=== PATIENT | female | born 1965 | race Caucasian/White ===

== ENCOUNTER 2022-05-15 13:50 | Emergency (ER) | payer BC, SELFPAY ==
--- NOTE | 2022-05-15 13:56 | ED.URI ---
HPI - URI/Sore Throat General Chief Complaint: Upper Respiratory Infection Stated Complaint: FEVER Time Seen by Provider: 05/15/22 13:56 Source: patient Mode of arrival: ambulatory Limitations: no limitations History of Present Illness HPI Narrative: [age] year complaint headache, sore throat, body aches, fever for 2 days. Reports that she did a home COVID test that was negative. 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 Denies nausea vomiting diarrhea. All systems reviewed and negative except as noted above. Related Data Home Medications Medication Instructions Recorded Confirmed cevimeline 30 mg capsule 1 cap PO TID 08/22/20 05/15/22 ferrous sulfate 325 mg (65 mg 325 mg PO DAILY 08/22/20 05/15/22 iron) tablet (Feosol) fexofenadine 180 mg tablet 180 mg PO DAILY 08/22/20 05/15/22 (Sveta Allergy) fluoxetine 40 mg capsule (Prozac) 40 mg PO DAILY 08/22/20 05/15/22 folic acid 1 mg tablet 1 mg PO DAILY 08/22/20 05/15/22 hydroxychloroquine 200 mg tablet 200 mg PO BID 08/22/20 05/15/22 loteprednol etabonate 0.2 % eye 1 drp EACH EYE QID 08/22/20 05/15/22 drops,suspension (Alrex) methotrexate sodium 2.5 mg tablet 10 mg PO WEEKLY 08/22/20 05/15/22 trazodone 50 mg tablet 50 mg PO QHS PRN Insomnia 08/22/20 05/15/22 Allergies Allergy/AdvReac Type Severity Reaction Status Date / Time latex Allergy Intermediate ITCHING Verified 05/15/22 13:56 meperidine Allergy Unknown Unknown Verified 05/15/22 13:56 Review of Systems Review of Systems: CONSTITUTIONAL: Reports fever, chills, or sweats. EYES: Denies visual changes, redness, or discharge. ENT: Denies rhinorrhea, congestion. Denies sore throat. Reports otalgia. CARDIOVASCULAR: Denies chest pain, palpitations, or edema. RESPIRATORY: Denies cough or dyspnea. GASTROINTESTINAL: Denies abdominal pain, nausea, vomiting, or diarrhea. GENITOURINARY: Denies dysuria or hematuria. SKIN: Denies rash or itching. MUSCULOSKELETAL: Denies back pain, joint pain. Reports myalgia. NEUROLOGIC: Denies headache, numbness, or weakness. PSYCHIATRIC: Denies anxiety or depression. All other systems reviewed are negative, except as documented in HPI. [facility] Past Medical History Medical History (Updated 05/15/22 @ 14:24 by Radha Reid NP) Anxiety Chronic insomnia Depression IBS (irritable bowel syndrome) Migraines Prolonged QT interval Seasonal allergic rhinitis Sjogrens syndrome Family History Family History Grandparent Hypertension Malignant neoplasm of prostate Family history of coronary artery disease Family history of malignant neoplasm of urinary bladder Family history of malignant neoplasm of kidney Father Family history of elevated blood lipids Heart disease Malignant neoplasm of prostate Social History Social History Smoking status: Never smoker Second hand tobacco smoke exposure: No Alcohol intake: current Alcohol use details: 1-2/mo Substance use: never Substance use type: does not use Living arrangements: with family Occupation/Education: unemployed Gender identity (if verbalized by the patient): Female Sexual Orientation (if Verbalized by the Patient): Straight or Heterosexual Comments At time of signature, agree with nursing past medical, surgical, social and family history. There is no relevant family history pertinent to the presenting complaint. Exam Narrative: GENERAL: This is a well-nourished, well-developed patient, in no apparent distress. HEAD: normocephalic, atraumatic. EYES: PERRL. Sclera clear/white. Vision is grossly intact. EARS: External ears normal, auditory canals clear and without drainage, TMs normal without perforation. Hearing grossly intact. NOSE: External nose normal with no obvious nasal discharge, na
[2022-05-15 14:05] VITALS: BP 115/82; PULSE 81; RESP 16; TEMP 36.3; O2SAT 100
== END 2022-05-15 14:26 | disposition home or self-care (01) ==
PROVIDERS: Emergency Provider Nurse Practitioner Family
DX: J02.9 Acute pharyngitis, unspecified (principal); F41.9 Anxiety disorder, unspecified; F32.A Depression, unspecified; M35.00 Sjogren syndrome, unspecified
CPT/HCPCS: 87081; 87880; 99213; G0463

== ENCOUNTER 2023-04-22 14:19 | Emergency (ER) | payer BC, SELFPAY ==
[2023-04-22 14:28] VITALS: BP 94/77; PULSE 79; RESP 16; TEMP 36.6; O2SAT 99
--- NOTE | 2023-04-22 15:02 | ED.URI ---
HPI - URI/Sore Throat General Chief Complaint: Upper Respiratory Infection Stated Complaint: Strep Test Time Seen by Provider: 04/22/23 15:02 Source: patient Mode of arrival: ambulatory Limitations: no limitations History of Present Illness HPI Narrative: 57 year old female presents to [facility] care with complaints of sore throat since yesterday. Patient reports that she has had cold symptoms since last week which includes headache, sinus congestion with drainage, slight cough, no fevers noted. patient reports that she has had knwon exposure to strep and COVID last week has done home COVID tests which have been negative. Patient reports that she has Sjogren and takes hydroxychloroquine and methotrexate for management of disease process. MD elicited complaint: sore throat, rhinorrhea, nasal congestion and other (headache) Pertinent past history: seasonal allergies and immunosuppression Pain scale (0-10): 4 Description of mucous: clear Able to tolerate fluids by mouth: Yes Exacerbating factors: swallowing Treatments prior to arrival: ibuprofen and other (alergy medication) Related Data Home Medications Medication Instructions Recorded Confirmed cevimeline 30 mg capsule 1 cap PO TID 08/22/20 04/22/23 fexofenadine 180 mg tablet 180 mg PO DAILY 08/22/20 04/22/23 (Sveta Allergy) fluoxetine 40 mg capsule (Prozac) 40 mg PO DAILY 08/22/20 04/22/23 folic acid 1 mg tablet 1 mg PO DAILY 08/22/20 04/22/23 hydroxychloroquine 200 mg tablet 200 mg PO BID 08/22/20 04/22/23 loteprednol etabonate 0.2 % eye 1 drp EACH EYE QID 08/22/20 04/22/23 drops,suspension (Alrex) methotrexate sodium 2.5 mg tablet 10 mg PO WEEKLY 08/22/20 04/22/23 trazodone 50 mg tablet 50 mg PO QHS PRN Insomnia 08/22/20 04/22/23 Allergies Allergy/AdvReac Type Severity Reaction Status Date / Time latex Allergy Intermediate ITCHING Verified 04/22/23 14:34 meperidine Allergy Unknown Unknown Verified 04/22/23 14:34 Review of Systems Review of Systems: CONSTITUTIONAL: Denies malaise, chills, sweats, or fever. EYES: Denies visual changes, redness, or discharge. ENT: Reports rhinorrhea, congestion, sinus pain,no otalgia and positive for sore throat. CARDIOVASCULAR: Denies chest pain, palpitations, or edema. RESPIRATORY: Reports cough.? Denies dyspnea. GASTROINTESTINAL: Denies abdominal pain, nausea, vomiting, diarrhea SKIN: Denies rash or itching. MUSCULOSKELETAL: Denies myalgia. NEUROLOGIC: Reports headache. All systems reviewed & are unremarkable except as noted in HPI and below PMFSH Past Medical History Medical History Anxiety Chronic insomnia Depression IBS (irritable bowel syndrome) Migraines Prolonged QT interval Seasonal allergic rhinitis Sjogrens syndrome Family History Family History Grandparent Hypertension Malignant neoplasm of prostate Family history of coronary artery disease Family history of malignant neoplasm of urinary bladder Family history of malignant neoplasm of kidney Father Family history of elevated blood lipids Heart disease Malignant neoplasm of prostate Social History Social History Smoking status: Never smoker Second hand tobacco smoke exposure: No Alcohol intake: current Alcohol use details: 1-2/mo Substance use: never Substance use type: does not use Living arrangements: with family Occupation/Education: unemployed Gender identity (if verbalized by the patient): Female Sexual Orientation (if Verbalized by the Patient): Straight or Heterosexual Comments At time of signature, agree with nursing past medical, surgical, social and family history. There is no relevant family history pertinent to the presenting complaint Exam Narrative: GENERAL: Well-appearing, well-nourished, and in no acute distress. HEAD: Nor
== END 2023-04-22 15:20 | disposition home or self-care (01) ==
PROVIDERS: Emergency Provider Registered Nurse; PCP Family Medicine
DX: J06.9 Acute upper respiratory infection, unspecified (principal); Z20.822 Contact with and (suspected) exposure to COVID-19; F41.9 Anxiety disorder, unspecified; F32.A Depression, unspecified
CPT/HCPCS: 87081; 87426; 87804; 87880; 99213; G0463

== ENCOUNTER 2024-09-14 19:20 | Inpatient (IN) | payer BC, SELFPAY ==
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
--- OUTSIDE RECORDS SUMMARY | 2024-09-14 19:22 | XMS_ITS | Data Portability ---
Author Organization [facility] [place] Address [address] [place] [address] [place] [address] Care Team Providers Care Banking Supervisor Name Role Phone JOAQUINA CHONG Primary Care Provider Assessment Encounter Date Assessment Date Assessment LastModified by Organization Details LastModified Time 07/13/2020 07/13/2020 Annual gynecological exam performed. Patient will come back in a year unless there are new symptoms. Not available 07/13/2020 12:37:39 07/17/2021 07/17/2021 Annual gynecological exam performed. Patient will come back in a year unless there are new symptoms. [email or web address] Not available 07/17/2021 11:08:36 07/19/2022 07/19/2022 Annual gynecological exam performed. Patient will come back in a year unless there are new symptoms. Not available 07/19/2022 10:49:43 07/23/2023 07/23/2023 Annual gynecological exam performed. Patient will come back in a year unless there are new symptoms. [email or web address] Not available 07/23/2023 10:55:04 09/08/2024 09/08/2024 Annual gynecological exam performed. Patient will come back in a year unless there are new symptoms. [email or web address] Not available 09/08/2024 09:26:12 Plan of Treatment Reminders Order Date Submit Date Provider Last Modified By Organization Details Last Modified Time Details Appointments None recorded. Lab CMP, serum or plasma 2024 025 [email or web address] [facility], [address], [place], [address], 5 10:10:19 CBC w/ auto diff 2024 025 [email or web address] [facility], [address], [place], [address], 5 10:10:19 lipid panel, serum 2024 025 [facility], [address], [place], [address], 5 10:10:19 TSH, ultra-sens itive, serum 2024 025 [email or web address] [facility], [address], [place], [address], 5 10:10:19 HbA1c (hemoglobi n A1c), blood 2024 025 [email or web address] [facility], [address], [place], [address], 5 06:39:33 pap, IG + HR HPV - HPV regardless but if HPV is positive need subtyping 16,18/45 2024 025 [facility] (Lab), [address], [place], [address], 5 11:06:08 lipid panel, blood 2021 022 [facility] (Lab), [address], [place], [address], 2 03:42:51 CMP, serum or plasma 2021 022 [facility] (Lab), [address] [place], [address], 2 03:42:51 CBC w/ auto diff 2021 022 [facility] (Lab), [address] [facility], [place], [address], 03:42:50 vitamin D, 25-hydroxy , total, serum 2021 [facility] (Lab), [address] [facility], [place], [address], 03:42:52 HbA1c (hemoglobi n A1c), blood 2021 022 [facility] (Lab), [address] [facility], [place], [address], 03:42:53 TSH, serum or plasma 2021 [facility] (Lab), [address] [facility], [place], [address], 2 03:42:51 lh + FSH, serum 2021 022 [facility] (Lab), [address], [place], [address], 03:42:52 estradiol, serum 2021 [facility] (Lab), [address] [facility], [place], [address], 2 03:42:52 prolactin, serum 2021 [facility] (Lab), [address] [facility], [place], [address], 2 03:42:53 Referral primary care provider referral 2020 [email or web address] Not available 17:19:06 Procedures None recorded. Surgeries None recorded. Imaging MAMMO, screening, bilateral 2022 023 [facility], [address] [place] [address], [address], 3 05:01:14 Medication Orders fluoxetine 20 mg capsule 2024 025 [facility] [id number] [facility], [address] [place], [address], 5 11:46:25 fluoxetine 20 mg capsule 2023 024 [facility] [address] [facility], [address] [place], [address], 4 11:20:43 fluoxetine 20 mg capsule 2022 023 [facility] [address] [facility], [address] [place], [address], 3 11:10:16 Prozac 20 mg capsule 2020 021 [facility] [address] [facility], [address] [place], [address], 1 14:19:42 Patient TargetsNo targets recorded. Patient InstructionsNo instructions recorded. 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 Order ing Locat ion: [place] Patho logy Recei linda: 07/14 0905 First Scree n: Beech im, Shahana , CT Speci men: Scree jaqueline Pap - Image d, Cervi x STATE MENT OF ADEQU ACY: Satis facto ry for evalu ation Trans forma tion zone compo nent prese nt FINAL DIAGN OSIS: Negat matthew for Squ[place] ous Intra epith elial Lesio n Elect carl weinberg luis d by Shahana Thurman CT on 021 at 2:59 PM ----- ----- ----- ----- ----- ----- ----- ----- ----- ----- ----- ----- ----- ----- ----- ----- ----- ---- HPV RESUL TS: HPV mRNA E6/E7 : No HPV mRNA Detec francisca NOTE: This high risk HPV mRNA assay detec ts fourt een high- risk HPV types (16, 18, 31, 33, 35, 39, 45, 51, 52, 56, 58, 59, 66, 68) witho ut diffe renti ation . CHART ABLE COMME NT: Note: This speci men was revie wed by a Cytot echno logis t and/o r Patho logis t (as indic ated in this repor t) after evalu ation using the Thinp rep Imagi ng Syste m. CLINI BETSY INFOR MATIO N: Menst rual Statu s: LMP (if appli cable ): Clini betsy Histo ry/Pr eviou s Pap: Type of Neopl denyns (if appli cable ): Other Histo ry: Hormo vern (if appli cable ): PAP EDUCA FRANK L NOTE: The Pap Test is a scree jaqueline test with an inher ent false negat matthew rate. Liqui d-bas e sampl ing may decre ase, but will not elimi mary grace, false negat matthew resul ts. A negat matthew resul t does not precl ude the prese nce and/o r devel opmen t of disea se, since the prese nce of abnor mal cells in the sampl e depen ds on the locat ion of the lesio n and sampl ing techn ique. Teresita nued regul ar scree jaqueline is the best metho d of cance r preve ntion . If repor francisca cytol ogic findi ng do not corre late with physi betsy and/o r histo rical findi ngs, furth er inves tigat ion is recom agata d, as clini julio c mosher nted. Not Available [facility] (Lab) [address], [place], [address], 07/15/2020 15:37:28 07/18/19 22 07/17/2021 CBC W/DIF F WBC 3.5 10'3/ uL 3.6-10 .2 low Not Available [facility] (Lab) [address] [facility], [place], [address], 07/18/2021 03:42:50 07/18/19 22 07/17/2021 CBC W/DIF F RBC 4.40 10'6/ uL (based on docume nted legal sex) 4.10-5 .30 Not Available [facility] (Lab) [address] [facility], [place], [address], 07/18/2021 03:42:50 07/18/19 22 07/17/2021 CBC W/DIF F HGB 13.1 g/dL (based on docume nted legal sex) 11.9-1 5.8 Not Available [facility] (Lab) [address] [facility], [place], [address], 07/18/2021 03:42:50 07/18/19 22 07/17/2021 CBC W/DIF F HCT 42.1 % (based on docume nted legal sex) 37.4-4 8.3 Not Available [facility] (Lab) [address] [facility], [place], [address], 07/18/2021 03:42:50 07/18/19 22 07/17/2021 CBC W/DIF F MCV 97.0 fL 82.0-9 9.0 Not Available [facility] (Lab) [address] [facility], [place], [address], 07/18/2021 03:42:50 07/18/19 22 07/17/2021 CBC W/DIF F MCH 30.0 pg 27.0-3 3.0 Not Available [facility] (Lab) [address] [facility], [place], [address], 07/18/2021 03:42:50 07/18/19 22 07/17/2021 CBC W/DIF F MCHC 31.0 g/dL 32.0-3 6.0 low Not Available [facility] (Lab) [address] [facility], [place], [address], 07/18/2021 03:42:50 07/18/19 22 07/17/2021 CBC W/DIF F RDW 15.0 % 11.0-1 5.0 Not Available [facility] (Lab) [address] [facility], [place], [address], 07/18/2021 03:42:50 07/18/19 22 07/17/2021 CBC W/DIF F plt 216 10'3/ uL 150-45 0 Not Available [facility] (Lab) [address] [facility], [place], [address], 07/18/2021 03:42:50 07/18/19 22 07/17/2021 CBC W/DIF F MPV 10.3 fL 9.8-12 .7 Not Available [facility] (Lab) [address] [facility], [place], [address], 07/18/2021 03:42:50 07/18/19 22 07/17/2021 CBC W/DIF F NRBC's 0.00 % 0 Not Available [facility] (Lab) [address] [facility], [place], [address], 07/18/2021 03:42:50 07/18/19 22 07/17/2021 CBC W/DIF F absolute NRBCs 0.0 10'3/ uL 0 Not Available [facility] (Lab) [address] [place], [address], 07/18/2021 03:42:50 07/18/19 22 07/17/2021 CBC W/DIF F neutrophils 53.0 % 37.0-7 2.0 Not Available [facility] (Lab) [address], [place], [address], 07/18/2021 03:42:50 07/18/19 22 07/17/2021 CBC W/DIF F lymphocytes 24.0 % 16.0-4 8.0 Not Available [facility] (Lab) [address], [place], [address], 07/18/2021 03:42:50 07/18/19 22 07/17/2021 CBC W/DIF F monocytes 18.0 % 4.0-14 .0 high Not Available [facility] (Lab) [address], [place], [address], 07/18/2021 03:42:50 07/18/19 22 07/17/2021 CBC W/DIF F eosinophils 3.0 % 0.0-9. 0 Not Available [facility] (Lab) [address], [place], [address], 07/18/2021 03:42:50 07/18/19 22 07/17/2021 CBC W/DIF F basophils 1.0 % 0.0-2. 0 Not Available [facility] (Lab) [address], [place], [address], 07/18/2021 03:42:50 07/18/19 22 07/17/2021 CBC W/DIF F immature granulocytes 1.0 % no define d refere nce range Not Available [facility] (Lab) [address], [place], [address], 07/18/2021 03:42:50 07/18/19 22 07/17/2021 CBC W/DIF F absolute neutrophils 1.8 10'3/ uL 1.1-6. 0 Not Available [facility] (Lab) [address], [place], [address], 07/18/2021 03:42:50 07/18/19 22 07/17/2021 CBC W/DIF F absolute lymphocytes 0.8 10'3/ uL 0.7-3. 4 Not Available [facility] (Lab) [address] [facility], [place], [address], 07/18/2021 03:42:50 07/18/19 22 07/17/2021 CBC W/DIF F absolute monocytes 0.6 10'3/ uL 0.3-1. 0 Not Available [facility] (Lab) [address] [facility], [place], [address], 07/18/2021 03:42:50 07/18/19 22 07/17/2021 CBC W/DIF F absolute eosinophils 0.1 10'3/ uL 0.0-0. 6 Not Available [facility] (Lab) [address] [facility], [place], [address], 07/18/2021 03:42:50 07/18/19 22 07/17/2021 CBC W/DIF F absolute basophils 0.0 10'3/ uL 0.0-0. 1 Not Available [facility] (Lab) [address] [facility], [place], [address], 07/18/2021 03:42:50 07/18/19 22 07/17/2021 CBC W/DIF F absolute immature granulocytes 0.00 10'3/ uL 0.00-0 .10 2021 1:35 AM: P indic ates parti al resul ts on a panel have been relea sed. Addit ional resul ts will follo w. 2021 1:35 AM: This resul t has been final verif ied. No addit ional or kauffman ed resul ts are expec francisca. Not Available [facility] (Lab) [address] [facility], [place], [address], 07/18/2021 03:42:50 07/18/19 22 07/17/2021 LIPID PANEL ,AMA (LDL- CALC) total cholesterol 155 mg/dL 0-199 Not Available [facility] (Lab) [address] [facility], [place], [address], 07/18/2021 03:42:51 07/18/19 22 07/17/2021 LIPID PANEL ,AMA (LDL- CALC) triglyceride s 121 mg/dL 0.00-1 50.00 NCEP Refer ence Value s for Trigl yceri napoleon: Annelise l: <150 mg/dL Borde rline High: 150 - 199 mg/dL High: 200 - 499 mg/dL Very High: >/= 500 mg/dL Not Available [facility] (Lab) [address] [facility], [place], [address], 07/18/2021 03:42:51 07/18/19 22 07/17/2021 LIPID PANEL ,AMA (LDL- CALC) HDL cholesterol 54 mg/dL >40 Not Available [facility] (Lab) [address] [place], [address], 07/18/2021 03:42:51 07/18/19 22 07/17/2021 LIPID PANEL ,AMA (LDL- CALC) LDL cholesterol 77 mg/dL 0-99 Cutof f value s recom agata d by the Natio nal Aurea stero l Educa tion Progr am: BIANKA ABLE: Aurea stero l <200 mg/dL LDL <100 mg/dL BORDE RLINE : Aurea stero l 200-2 39 mg/dL LDL 101-1 59 mg/dL HIGHE R RISK: Aurea stero l >240 mg/dL LDL >160 mg/dL , HDL <40 mg/dL Not Available [facility] (Lab) [address] [place], [address], 07/18/2021 03:42:51 07/18/19 22 07/17/2021 LIPID PANEL ,AMA (LDL- CALC) non-HDL cholesterol 101 mg/dL no refere nce range A reaso nable goal for non-H DL aurea stero l is one that is 30 mg/dL highe r than the LDL aurea stero l goal. Not Available [facility] (Lab) [address] [facility], [place], [address], 07/18/2021 03:42:51 07/18/19 22 07/17/2021 LIPID PANEL ,AMA (LDL- CALC) chol/HDL ratio 2.9 . 0.0-5. 0 Not Available [facility] (Lab) [address] [facility], [place], [address], 07/18/2021 03:42:51 07/18/19 22 07/17/2021 CMP(C OMPRE HENSI VE METAB OLIC PANEL ) sodium 140 mmol/ L 133-14 6 Not Available [facility] (Lab) [address] [facility], [place], [address], 07/18/2021 03:42:51 07/18/19 22 07/17/2021 CMP(C OMPRE HENSI VE METAB OLIC PANEL ) potassium 3.8 mmol/ L 3.5-5. 1 Not Available [facility] (Lab) [address] [facility], [place], [address], 07/18/2021 03:42:51 07/18/19 22 07/17/2021 CMP(C OMPRE HENSI VE METAB OLIC PANEL ) chloride 106 mmol/ L 98-107 Not Available [facility] (Lab) [address] [facility], [place], [address], 07/18/2021 03:42:51 07/18/19 22 07/17/2021 CMP(C OMPRE HENSI VE METAB OLIC PANEL ) carbon dioxide 27 mmol/ L 21-31 Not Available [facility] (Lab) [address] [facility], [place], [address], 07/18/2021 03:42:51 07/18/19 22 07/17/2021 CMP(C OMPRE HENSI VE METAB OLIC PANEL ) anion gap 7 mmol/ L 4-13 Not Available [facility] (Lab) [address] [place], [address], 07/18/2021 03:42:51 07/18/19 22 07/17/2021 CMP(C OMPRE HENSI VE METAB OLIC PANEL ) blood urea nitrogen 16 mg/dL 7-25 Not Available [facility] (Lab) [address] [facility], [place], [address], 07/18/2021 03:42:51 07/18/19 22 07/17/2021 CMP(C OMPRE HENSI VE METAB OLIC PANEL ) creatinine 0.97 mg/dL 0.60-1 .30 Not Available [facility] (Lab) [address] [facility], [place], [address], 07/18/2021 03:42:51 07/18/19 22 07/17/2021 CMP(C OMPRE HENSI VE METAB OLIC PANEL ) egfrcr (CKD-epi 2020) 69 mL/mi n/1.7 3_m2 >=60 Not Available [facility] (Lab) [address] [facility], [place], [address], 07/18/2021 03:42:51 07/18/19 22 07/17/2021 CMP(C OMPRE HENSI VE METAB OLIC PANEL ) calcium 9.5 mg/dL 8.3-10 .5 Not Available [facility] (Lab) [address] [facility], [place], [address], 07/18/2021 03:42:51 07/18/19 22 07/17/2021 CMP(C OMPRE HENSI VE METAB OLIC PANEL ) glucose 76 mg/dL 70-100 Not Available [facility] (Lab) [address] [facility], [place], [address], 07/18/2021 03:42:51 07/18/19 22 07/17/2021 CMP(C OMPRE HENSI VE METAB OLIC PANEL ) protein, total 7.0 g/dL 6.4-8. 3 Not Available [facility] (Lab) [address] [facility], [place], [address], 07/18/2021 03:42:51 07/18/19 22 07/17/2021 CMP(C OMPRE HENSI VE METAB OLIC PANEL ) albumin 4.0 g/dL 3.5-5. 0 Not Available [facility] (Lab) [address] [facility], [place], [address], 07/18/2021 03:42:51 07/18/19 22 07/17/2021 CMP(C OMPRE HENSI VE METAB OLIC PANEL ) ALT 16 units /L 9-43 Not Available [facility] (Lab) [address] [facility], [place], [address], 07/18/2021 03:42:51 07/18/19 22 07/17/2021 CMP(C OMPRE HENSI VE METAB OLIC PANEL ) alkaline phosphatase 65 units /L 34-104 Not Available [facility] (Lab) [address] [facility], [place], [address], 07/18/2021 03:42:51 07/18/19 22 07/17/2021 CMP(C OMPRE HENSI VE METAB OLIC PANEL ) AST 22 units /L 13-39 Not Available [facility] (Lab) [address] [facility], [place], [address], 07/18/2021 03:42:51 07/18/19 22 07/17/2021 CMP(C OMPRE HENSI VE METAB OLIC PANEL ) bilirubin, total 0.5 mg/dL 0.2-1. 2 Not Available [facility] (Lab) [address] [facility], [place], [address], 07/18/2021 03:42:51 07/18/19 22 07/17/2021 TSH, REFLE X FREE T4 TSH 1.18 uIU/m L 0.30-5 .33 Not Available [facility] (Lab) [address] [place], [address], 07/18/2021 03:42:51 07/18/19 22 07/17/2021 VITAM IN D, 25-OH (TOTA L D2/D3 ) vitamin D, 25-hydroxy, total 31.0 NG/mL 30-80 NOTE: Defic iency : <20 ng/mL Insuf ficie ncy: 20-29 ng/mL Optim um Level : 30-80 ng/mL Possi ble Toxic ity: >80 ng/mL Most patie nts with toxic ity have level s >150 ng/mL . Not Available [facility] (Lab) [address] [facility], [place], [address], 07/18/2021 03:42:52 07/18/19 22 07/17/2021 ESTRA DIOL estradiol 57.7 pg/mL This assay was perfo rmed using [employer] ratio n reage nts and test kits. Value s obtai kailey with other assay metho ds or kits canno t be used inter [facility] . Femal e Estra diol Range s: Folli cular phase 12.4- 233 pg/mL Ovula tion phase 41.0- 398 pg/mL Lutea l phase 22.3- 341 pg/mL Postm enopa usal< 5-138 pg/mL Healt hy Pregn ant Women 1st Trime ster1 54-32 43 pg/mL 2nd Trime ster1 561-2 1280 pg/mL 3rd Trime ster8 525-> 46510 pg/mL Not Available [facility] (Lab) [address] [facility], [place], [address], 07/18/2021 03:42:52 07/18/19 22 07/17/2021 FSH / LH FSH 69.8 mIU/m L This assay was perfo rmed using [employer] reage nts and test kits. Value s obtai kailey with other assay metho ds or kits canno t be used inter [facility] . Femal es Folli cular : 3.5-1 2.5 mIU/m L Ovula tion: 4.7-2 1.5 mIU/m L Lutea l: 1.7-7 .7 mIU/m L Postm enopa use: 25.8- 134.8 mIU/m L Not Available [facility] (Lab) [address] [facility], [place], [address], 07/18/2021 03:42:52 07/18/19 22 07/17/2021 FSH / LH LH 46.6 mIU/m L This assay was perfo rmed using [employer] reage nts and test kits. Value s obtai kailey with other assay metho ds or kits canno t be used inter [facility] . Femal es Mid-F ollic ular: 2.4-1 2.6 mIU/m L Mid-C ycle: 14.0- 95.6 mIU/m L Mid-L uteal : 1.0-1 1.4 mIU/m L Postm enopa use: 7.7-5 8.5 mIU/m L Not Available [facility] (Lab) [address] [place], [address], 07/18/2021 03:42:52 07/18/19 22 07/17/2021 PROLA CTIN prolactin, total 13.90 NG/mL 4.79-2 3.30 This assay was perfo rmed using [employer] n reage nts and test kits. Value s obtai kailey with other assay metho ds or kits canno t be used inter [facility] . Not Available [facility] (Lab) [address] [place], [address], 07/18/2021 03:42:53 07/18/1907/17/2021 HEMOG LOBIN A1C hemoglobin A1C 5.4 % 0-5.6 The Ameri can Diabe frances [employer] iatio n recom mends that a prima ry goal of thera py lillie d be a HBA1C of < 7% and that physi cians shoul d reeva luate the treat ment regim en in patie nts with HBA1C value s consi stent ly > 8%. 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 Elect carl weinberg luis d by Tracie Gustafson , CT on 2021 at 11:09 AM ----- ----- ----- ----- ----- ----- ----- ----- ----- ----- ----- ----- ----- ----- ----- ----- ----- ---- HPV RESUL TS: HPV mRNA E6/E7 : No HPV mRNA Detec francisca NOTE: This high risk HPV mRNA assay detec ts fourt een high- risk HPV types (16, 18, 31, 33, 35, 39, 45, 51, 52, 56, 58, 59, 66, 68) witho ut diffe renti ation . COMME NT: Note: This speci men was revie wed by a Cytot echno logis t and/o r Patho logis t (as indic ated in this repor t) after evalu ation using the Thinp rep Imagi ng Syste m. CLINI BETSY INFOR MATIO N: Menst rual Statu s: LMP (if appli cable ): Clini betsy Histo ry/Pr eviou s Pap: Type of Neopl dennys (if appli cable ): Signi fican t Clini betsy Findi ngs: Other Histo ry: Hormo vern (if appli cable ): PAP EDUCA FRANK L NOTE: The Pap Test is a scree jaqueline test with an inher ent false negat matthew rate. Liqui d-bas ed sampl ing may decre ase, but will not elimi mary grace, false negat matthew resul ts. A negat matthew resul t does not precl ude the prese nce and/o r devel opmen t of disea se, since the prese nce of abnor mal cells in the sampl e depen ds on the locat ion of the lesio n and sampl ing techn ique. Teresita nued regul ar scree jaqueline is the best metho d of cance r preve ntion . If repor francisca cytol ogic findi ng do not corre late with physi betsy and/o r histo rical findi ngs, furth er inves tigat ion is recom agata d, as clini julio c mosher nted. 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 Elect carl weinberg luis d by Ming Lott am, CT on 2022 at 7:52 AM ----- ----- ----- ----- ----- ----- ----- ----- ----- ----- ----- ----- ----- ----- ----- ----- ----- ---- HPV RESUL TS: HPV mRNA E6/E7 : No HPV mRNA Detec francisca NOTE: This high risk HPV mRNA assay detec ts fourt een high- risk HPV types (16, 18, 31, 33, 35, 39, 45, 51, 52, 56, 58, 59, 66, 68) witho ut diffe renti ation . COMME NT: This speci men was revie wed by a Cytot echno logis t and/o r Patho logis t (as indic ated in this repor t) after evalu ation using the Thinp rep Imagi ng Syste m. CLINI BETSY INFOR MATIO N: Menst rual Statu s: LMP (if appli cable ): Clini betsy Histo ry/Pr eviou s Pap: Type of Neopl dennys (if appli cable ): Signi fican t Clini betsy Findi ngs: Other Histo ry: Hormo vern (if appli cable ): PAP EDUCA FRANK L NOTE: The Pap Test is a scree jaqueline test with an inher ent false negat matthew rate. Liqui d-bas ed sampl ing may decre ase, but will not elimi mary grace, false negat matthew resul ts. A negat matthew resul t does not precl ude the prese nce and/o r devel opmen t of disea se, since the prese nce of abnor mal cells in the sampl e depen ds on the locat ion of the lesio n and sampl ing techn ique. Teresita nued regul ar scree jaqueline is the best metho d of cance r preve ntion . If repor francisca cytol ogic findi ng do not corre late with physi betsy and/o r histo rical findi ngs, furth er inves tigat ion is recom agata d, as clini julio c mosher nted. 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 Atrop hy prese nt. Elect carl weinberg luis d by Judit Hillman, CT on 2023 at 5:46 PM ----- ----- ----- ----- ----- ----- ----- ----- ----- ----- ----- ----- ----- ----- ----- ----- ----- ---- HPV RESUL TS: HPV mRNA E6/E7 : No HPV mRNA Detec francisca NOTE: This high risk HPV mRNA assay detec ts fourt een high- risk HPV types (16, 18, 31, 33, 35, 39, 45, 51, 52, 56, 58, 59, 66, 68) witho ut diffe renti ation . COMME NT: This speci men was revie wed by a Cytot echno logis t and/o r Patho logis t (as indic ated in this repor t) after evalu ation using the Thinp rep Imagi ng Syste m. CLINI BETSY INFOR MATIO N: Menst rual Statu s: LMP (if appli cable ): Clini betsy Histo ry/Pr eviou s Pap: Type of Neopl dennys (if appli cable ): Signi fican t Clini betsy Findi ngs: Other Histo ry: Hormo vern (if appli cable ): PAP EDUCA FRANK L NOTE: The Pap Test is a scree jaqueline test with an inher ent false negat matthew rate. Liqui d-bas ed sampl ing may decre ase, but will not elimi mary grace, false negat matthew resul ts. A negat matthew resul t does not precl ude the prese nce and/o r devel opmen t of disea se, since the prese nce of abnor mal cells in the sampl e depen ds on the locat ion of the lesio n and sampl ing techn ique. Teresita nued regul ar scree jaqueline is the best metho d of cance r preve ntion . If repor francisca cytol ogic findi ng do not corre late with physi betsy and/o r histo rical findi ngs, furth er inves tigat ion is recom agata d, as clini julio c mosher nted. 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 Inade quate squam ous epith elial compo nent for diagn osis. Elect carl weinberg luis d by Mildred Cobian, CT for Juanita Franky watts ed, CT on 025 at 1001 CDT ----- ----- ----- ----- ----- ----- ----- ----- ----- ----- ----- ----- ----- ----- ----- ----- ----- ---- HPV RESUL TS: HPV mRNA E6/E7 : No HPV mRNA Detec francisca NOTE: This high risk HPV mRNA assay detec ts fourt een high- risk HPV types (16, 18, 31, 33, 35, 39, 45, 51, 52, 56, 58, 59, 66, 68) witho ut diffe renti ation . COMME NT: This speci men was revie wed by a Cytot echno logis t and/o r Patho logis t (as indic ated in this repor t) after evalu ation using the Thinp rep Imagi ng Syste m. CLINI BETSY INFOR MATIO N: Menst rual Statu s: LMP (if appli cable ): Clini betsy Histo ry/Pr eviou s Pap: Type of Neopl dennys (if appli cable ): Haii manuel t Clini betsy Findi ngs: Other Histo ry: Hormo vern (if appli cable ): Not Available [facility] (Lab) [address], [place], [address], 09/10/2024 11:06:08 06/21/19 23 06/19/2022 MAMMO , diagn ostic , bilat eral No observ ation record ed. [facility] [address] [place], [address], 08/08/2022 14:05:08 07/14/19 25 07/10/2024 imagi ng/di agnos tic resul t No observ ation record ed. [address], [address], 07/24/2024 11:42:21 07/14/1907/10/2024 imagi ng/di agnos tic resul t No observ ation record ed. [address], [address], 07/24/2024 11:42:21 Result Notes None recorded. Problems Name Problem SNOMED Code Status Onset Date Resolution Date Notes Provider Name and Address Organization Details Recorded Time Screenin g for malignan t neoplasm of rectum Completed 201507/17/2021 Encounter for screening for malignant neoplasm of rectum;Pr actice ID: 0001 Rachel sommers [facility] 2 09:39:[address] Concept Completed 201607/17/2021 Encntr for general adult medical exam w/o abnormal findings; Practice ID: 0001 Rachel sommers [facility] 2 09:39:[address] Concept Completed 201607/17/2021 Encntr for rn surgical pcu exam (general) (routine) w/o abn findings; Practice ID: 0001 Rachel sommers [facility] 2 09:39:50 Finding of menstrua l bleeding Completed 201707/17/2021 Excessive and frequent menstruat ion with regular cycle;Pra ctice ID: 0001 Rachel sommers [facility] 2 09:39:50 Pregnanc y test negative [id number] Completed 201707/17/2021 Encounter for test, result negative; Practice ID: 0001 Rachel sommers [facility] 2 09:39:50 Finding of pattern of menstrua l cycle Completed 201707/17/2021 Other specified irregular menstruat ion;Pract ice ID: 0001 [facility] 09:[facility]:50 Screenin g for malignan t neoplasm of rectum Completed 201012/26/2011 Screening for malignant neoplasms of the rectum;Re corded Elsewhere : No Locati on: [facility] So urce: EHR Chron ic: N Practic e ID: 0001 Bill able Time: 10:00:00 AM Rachel sommers [facility] 2 09:39:50 Speciali d medical examinat ion Completed 201207/17/2021 Gynecolog ical Examinati on;Record ed Elsewhere : No Locati on: [facility] So urce: EHR Chron ic: N Practic e ID: 0001 Bill able Time: 10:00:00 AM Rachel sommers [facility] 2 09:39:50 Screenin g for malignan t neoplasm of cervix Completed 201012/26/2011 Screening for malignant neoplasms of the cervix;Re corded Elsewhere : No Locati on: [facility] So urce: EHR Chron ic: N Practic e ID: 0001 Bill able Time: 10:00:00 AM Rachel Clark [facility] 2 09:39:50 Adult health examinat ion Completed 201307/17/2021 ROUTINE MEDICAL EXAM;Roque rded Elsewhere : No Locati on: [facility] So urce: EHR Chron ic: N Practic e ID: 0001 Bill able Time: 09:00:00 AM Rachel Clark [facility] 2 09:39:50 Speciali zed medical examinat ion Completed 201012/26/2011 Gynecolog ical Examinati on;Record ed Elsewhere : No Locati on: [facility] So urce: EHR Chron ic: N Practic e ID: 0001 Bill able Time: 10:00:00 AM Rachel Clark [facility] 2 09:39:50 Menstrua tion finding Completed 201012/26/2011 Excessive or frequent menstruat ion;Recor ded Elsewhere : No Locati on: [facility] So urce: EHR Chron ic: N Practic e ID: 0001 Bill able Time: 10:00:00 AM Rachel Clark [facility] 2 09:39:50 Malaise and fatigue [id number] Completed 201007/17/2021 Fatigue / Malaise;R ecorded Elsewhere : No Locati on: [facility] So urce: EHR Chron ic: N Practic e ID: 0001 Bill able Time: 10:00:00 AM Rachel Clark [facility] 2 09:39:50 Depressi ve disorder [id number] Completed 201407/17/2021 Depressio n;Recorde d Elsewhere : No Locati on: [facility] So urce: EHR Chron ic: N Practic e ID: 0001 Bill able Time: 09:30:00 AM Rachel Clark [facility] 2 09:39:50 Dysfunct ional uterine bleeding Completed 201007/17/2021 Other disorders of menstruat ion and other abnormal bleeding from female genital tract;Rec orded Elsewhere : No Locati on: [facility] So urce: EHR Chron ic: N Practic e ID: 0001 Bill able Time: 11:00:00 AM Rachel Clark [facility] 2 09:39:50 Menstrua tion finding Completed 201007/17/2021 Menorrhag ia Excessive Menstruat ion;Pract ice ID: 0001 Rachel [facility] 2 09:39:50 Screenin g for malignan t neoplasm of cervix Completed 201107/17/2021 Pap Smear;Pra ctice ID: 0001 Rachel Clark [facility] 2 09:39:50 Problem Notes None recorded. Procedures Surgical History Date Name Laterality Status Provider Name and Address Organization Details Recorded Time 07/23/19 24 Date of Last Pap Smear completed Nisha Villalba [facility] 09/08/2024 09:28:20 06/20/19 23 Date of Last Mammogram completed [facility] 07/19/2022 10:58:47 06/07/[address] [facility] 07/13/2020 12:39:39 07/09/19 18 Colonoscopy completed Claudia Baker [facility] [address], [place], [address], [facility] 07/19/2022 11:07:46 05/14/19 18 endometrial biopsy completed [facility] 07/17/2021 10:45:24 03/01/20 17 completed [facility] 07/17/2021 11:10:[address] [facility] 07/13/2020 12:26:[address] [facility] 07/13/2020 12:27:15 lumpectomy of left breast completed [facility] 07/13/2020 12:27:26 Imaging Results None recorded. Procedure Notes None recorded. Medical Equipment None Reported. Allergies Allergen ID Allergen Name Allergen Category Reaction Reaction Severity Criticality Documentation Date Start Date Code Code System Note Provider Name and Address Organization Details Recorded Time 64801 meperidin e medicatio n Not available Not available Not available 07/13/2020 6754 RxNorm Gisel Bello [facility] 1 12:27:56 Medications Name Sig Start Date Stop Date Status Note LastModified by Organization Details LastModified Time trazodone 50 mg tablet TAKE 1 TABLET BY MOUTH NIGHTLY active Not Available Not Available No t Available Prozac 40 mg capsule TAKE 1 CAPSULE DAILY IN THE MORNING 06/02 completed Prescrib ed Elsewher e: No Locat ion: [facility] odify By: sal chambers DateTime : 03/26/20 14 01:57:12 PM Not Available Not Available Not Available methotrex ate sodium 2.5 mg tablet TAKE 4 TABLETS BY MOUTH EVERY 7 DAYS. active Not Available Not Available No t Available tamoxifen 10 mg tablet take 1 tablet by oral route 2 times every day in the morning and evening 12/31 completed Prescrib ed Elsewher e: Yes Loca tion: [facility] odify By: juan antonio friend DateTime : 12/17/19 11 03:15:51 PM Not Available Not Available Not Available erythromy anisha 5 mg/gram (0.5 %) eye ointment PLACE OINTMENT ON RIGHT EYELID INCISION S 3 TIMES A DAY. ONLY PLACE INSIDE THE EYE FOR IRRITATI ON. 09/08 completed Not Available Not Available Not Available cevimelin e 30 mg capsule TAKE 1 CAPSULE BY MOUTH 3 TIMES A DAY. active Not Available Not Available No t Available Alrex 0.2 % eye drops,aba pension INSTILL 1 DROP IN BOTH EYES FOUR TIMES DAILY active Not Available Not Available No t Available folic acid 1 mg tablet TAKE 1 TABLET BY MOUTH EVERY DAY active Not Available Not Available No t Available hydroxych loroquine 200 mg tablet TAKE 1 TABLET (200 MG TOTAL) BY MOUTH 2 TIMES A DAY. active Not Available Not Available No t Available Prozac 10 mg capsule take 2 capsule by oral route every day 02/27 completed Prescrib ed Elsewher e: Yes Loca tion: Fidel bryant [facility] odify By: [email or web address] tz Encou nter DateTime : 12/17/19 11 03:15:51 PM Not Available Not Available Not Available fluoxetin e 20 mg capsule TAKE 3 CAPSULES BY MOUTH DAILY IN THE MORNING. 2024 active Not Available Not Available Not Avai lable Plaquenil 07/17 completed Not Available Not Available Not Available Zyrtec active Not Available Not Availa ble Not Available Allerx 10 120mg-2.5 mg(dy)/8m g-10mg(nt ) tablets 12/31 completed Prescrib ed Elsewher e: Yes Loca tion: [facility] b[facility] odify By: juan antonio friend DateTime : 12/17/19 03:15:51 PM Not Available Not Available Not Available Lysteda 650 mg tablet take 2 tablet by oral route 3 times every day during menses 07/13 completed Prescrib ed Elsewher e: No Locat ion: [facility] odify By: maura friend DateTime : 10/25/19 08:12:45 AM Not Available Not Available Not Available Xatmep 2.5 mg/mL oral solution 07/13 completed Prescrib ed Elsewher e: Yes [facility] By: diogenes batesuntdelmis DateTime : 01/23/20 02:15:00 PM Not Available Not Available Not Available Vitals Date Recorded Body height Body mass index (BMI) Body weight Systolic blood pressure Diastolic blood pressure Provider Name and Address Organization Details Last Updated DateTime 07/13/2020 167.64 cm 23.9 kg/m2 84842.67 g 103 mm[Hg] 65 mm[Hg] Gisel Bello [facility] 12:39:01 Date Recorded Body height Body mass index (BMI) Body weight Systolic blood pressure Diastolic blood pressure Provider Name and Address Organization Details Last Updated DateTime 07/17/2021 170.18 cm 23 kg/m2 68878.08 g 110 mm[Hg] 68 mm[Hg] Rachel Clark [facility] 2 11:10:47 Date Recorded Body height Body mass index (BMI) Body weight Systolic blood pressure Diastolic blood pressure Provider Name and Address Organization Details Last Updated DateTime 07/19/2022 170.18 cm 23.5 kg/m2 89923.86 g 107 mm[Hg] 70 mm[Hg] Gisel Bello [facility] 3 10:57:52 Date Recorded Body weight Systolic blood pressure Diastolic blood pressure Provider Name and Address Organization Details Last Updated DateTime 07/23/2023 45848.98 g 103 mm[Hg] 71 mm[Hg] Rachel Krishna [facility] 07/23/2023 10:57:27 Date Recorded Body height Body mass index (BMI) Body weight Systolic blood pressure Diastolic blood pressure Provider Name and Address Organization Details Last Updated DateTime 09/08/2024 170.18 cm 23.6 kg/m2 37098.01 g 109 mm[Hg] 75 mm[Hg] Nisha Villalba [facility] 5 09:34:37 Social History Question Answer Notes LastModified by Organizat ion Details LastModified Time Tobacco Smoking Status Never Smoker [facility] 07/19/2022 10:44:06 Do You Have An Advance Directive? Yes Information n ot available 07/13/2020 How Many Years Have You Consumed Alcohol? 34 Information not available 07/13/2020 Are You Blind Or Do You Have Difficulty Seeing? No Information n ot available 07/13/2020 What Is Your Level Of Caffeine Consumption? Heavy Information not available 07/13/2020 How Much Tobacco Do You Chew? None Information not available 07/13/2020 In The 14 Days Before Symptom Onset, Have You Had Close Contact With A Laboratory-confirm ed COVID-19 While That Case Was Ill? No Information n ot available 07/13/2020 In The 14 Days Before Symptom Onset, Have You Had Close Contact With A Person Who Is Under Investigation For COVID-19 While That Person Was Ill? No Information not available 07/13/2020 Have You Been To An Area Known To Be High Risk For COVID-19? No Information not available 07/13/2020 Are You Deaf Or Do You Have Serious Difficulty Hearing? No Information not available 07/13/2020 What Type Of Diet Are You Following? REGULAR Information n ot available 07/13/2020 What Is The Highest Grade Or Level Of School You Have Completed Or The Highest Degree You Have Received? [id number] Information not available 07/13/2020 Are There Any Guns Present In Your Home? No Information not available 07/13/2020 Do You Use Protection During Sex? No Information not available 07/13/2020 Do You Use Your Seat Belt Or Car Seat Routinely? Yes Information not available 07/13/2020 Do You Have Smoke And Carbon Monoxide Detectors In Your Home? Yes Information not available 07/13/2020 How Much Tobacco Do You Smoke? No Information not available 07/13/2020 Do You Use Sunscreen Routinely? Yes Information not available 07/13/2020 Have You Used IV Drugs? No Information not available 07/13/2020 Do You Have Difficulty Walking Or Climbing Stairs? No [email or web address] Information not available 07/19/2022 Sex: Unknown Functional Status Question Answer Note LastModified by Organizat ion Details LastModified Time Do you use any illicit or recreational drugs? No Information not available 07/13/2020 What is your level of alcohol consumption? Occasional Information not available 07/13/2020 Are you able to walk? YESWOREST Information not available 07/13/2020 Are you able to care for yourself? 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 No [email or web address] Information not available 07/19/2022 What is your exercise level? Moderate Information not available 07/13/2020 Mental Status Question Answer Note LastModified by Organization D etails LastModified Time Do you feel stressed (tense, restless, nervous, or anxious, or unable to sleep at night)? [id number] [email or web address] Information not available 07/13/2020 Family History Relationship Description Onset Age of this Age Resolved Age Notes LastModified by Organization Details LastModified Time Paternal Grandmother Coronary atherosclero sis [email or web address] Not available 2022 10:44:05 Maternal Grandmother Hypertensive disorder Not available 2020 12:23:09 Maternal Grandmother Cerebrovascu lar accident Not available 10/2020 12:24:06 Father Carcinoma of prostate [email or web address] Not available 2022 10:44:05 Paternal Grandfather Carcinoma of prostate [email or web address] Not available 2022 10:44:05 Paternal Uncle Carcinoma of prostate [email or web address] Not available 2022 10:44:05 Maternal Grandfather Malignant tumor of kidney [email or web address] Not available 2022 10:44:05 Maternal Aunt Malignant tumor of colon [email or web address] Not available 2021 11:14:44 Mother Malignant neoplasm of skin [email or web address] Not available 2022 10:44:05 Medical History Condition Response Other Y Cancer Y Headaches Y Fibromyalgia Y Gynecological History Statement/Question Response Abnormal Pap N Date of Last Mammogram 06/19/2022 Date of LMP 12/07/2021 N Was last menstrual period normal N STIs/STDs N HPV Vaccine Y 06/06/2020 Current Control Method Menopause Age at First Child 28 If Post Menopausal, Age at Menopause 55 Are cycles usually normal N Sexually Active? Y Menses Monthly N Age of first menstrual cycle 15 Date of Last Pap Smear 07/23/2023 Sexual Problems? N Desired Control Method Partner Vas ectomy LMP Approximate 03/01/2017 N Obstetrics History GPAL:G 4 P 0 0 1 3 Type Value Spontaneous 1 Living 3 Total 4 Past Encounters Encounter ID Performer Location Encounter Start Date Encounter Closed Date Diagnosis/Indication Diagnosis SNOMED-CT Code Diagnosis ICD10 Code Diagnosis Note [id number] Claudia Baker [facility] [address] [address] 07/13/2020 12:25:21 07/13/2020 14:07:19 Gynecologic examination [id number] Z01.419 Take Calcium with Vitamin D 12-1500mg daily. Do monthly self breast exams. It is advised to get annual flu shot in the fall and she could obtain at [facility] or [facility] care clinic. If you haven't received the Tdap vaccine in the last 10 years you should obtain one as well. Have mammogram yearly, bone density every 2-3 years and colonoscop y every 5-10 years depending on findings and history. Engage in daily exercise of low impact aerobic exercise 45-60 minutes 4-5 times weekly. Avoid tobacco and illicit drugs as well as using moderation with alcohol intake less than 1-2 8 oz beverages daily. This lifestyle behavior pattern will lead to less health conditions and longer life span. If BMI greater than 25 weight watchers or dietary consult advised. Questions have been answered. Patient appears to understand instructio ns, but if you have any further questions call or respond to this email Keep menstrual diary Pap/hpv updated Will do yearly since she is now on Methotrexa te/autoimm une disorder Declines std screening UTD colonoscop y Adult heal th examination [id number] Z00.00 Encouraged to est care with PCP for routine adult care. She agrees. Generalize d anxiety disorder 19440568 F41.1 Doing well on 60mg daily of this medication . [id number] Claudia Baker [facility] [address] [address] 07/17/2021 10:51:58 07/17/2021 11:32:56 Gynecologic examination [id number] Z01.419 Take Calcium with Vitamin D 12-1500mg daily. Do monthly self breast exams. It is advised to get annual flu shot in the fall and she could obtain at [facility] or [facility] care clinic. If you haven't received the Tdap vaccine in the last 10 years you should obtain one as well. Have mammogram yearly, bone density every 2-3 years and colonoscop y every 5-10 years depending on findings and history. Engage in daily exercise of low impact aerobic exercise 45-60 minutes 4-5 times weekly. Avoid tobacco and illicit drugs as well as using moderation with alcohol intake less than 1-2 8 oz beverages daily. This lifestyle behavior pattern will lead to less health conditions and longer life span. If BMI greater than 25 weight watchers or dietary consult advised. Questions have been answered. 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 Adult heal th examination [id number] Z00.00 [id number] Claudia Baker , [facility] [address] [address] 07/19/2022 10:43:59 07/19/2022 14:23:24 Gynecologic examination [id number] Z01.419 Z11.51 Take Calcium with Vitamin D 12-1500mg daily. Do monthly self breast exams. It is advised to get annual flu shot in the fall and she could obtain at [facility] or [facility] care clinic. If you haven't received the Tdap vaccine in the last 10 years you should obtain one as well. Have mammogram yearly, bone density every 2-3 years and colonoscop y every 5-10 years depending on findings and history. Engage in daily exercise of low impact aerobic exercise 45-60 minutes 4-5 times weekly. Avoid tobacco and illicit drugs as well as using moderation with alcohol intake less than 1-2 8 oz beverages daily. This lifestyle behavior pattern will lead to less health conditions and longer life span. If BMI greater than 25 weight watchers or dietary consult advised. Questions have been answered. Patient appears to understand instructio ns, but if you have any further questions call or respond to this email Pap/hpv sentSTD Screen declinedGe netic Screen discussed- previously completedC olon Screen UTD age 51yo PCPDexa Screen naRoutine Labs utd PCPMammo wnl 06/2022 siteman Screening mammography [id number] Z12.31 Depressive disorder [id number] 9007 F32.A Doing wellNeg suicidal ideations/ thoughts of self harmWishes to continueRF sent x 1yr [id number] [facility] [address] [address] 07/23/2023 10:39:54 07/23/2023 11:58:46 Gynecologic examination [id number] Z01.419 Z11.51 Take Calcium with Vitamin D 12-1500mg daily. Do monthly self breast exams. It is advised to get annual flu shot in the fall and she could obtain at [facility] or [facility] clinic. If you haven't received the Tdap vaccine in the last 10 years you should obtain one as well. Have mammogram yearly, bone density every 2-3 years and colonoscop y every 5-10 years depending on findings and history. Engage in daily exercise of low impact aerobic exercise 45-60 minutes 4-5 times weekly. Avoid tobacco and illicit drugs as well as using moderation with alcohol intake less than 1-2 8 oz beverages daily. This lifestyle behavior pattern will lead to less health conditions and longer life span. If BMI greater than 25 weight watchers or dietary consult advised. Questions have been answered. Patient appears to understand instructio ns, but if you have any further questions call or respond to this email Pap/hpv sentSTD Screen declinedGe netic Screen discussed- previously completedC olon Screen UTD age 51yo PCPDexa Screen naRoutine Labs utd PCPMammo ordered Screening mammography 24 [id number] Z12.31 Has completed for 2023-wnl per pt Depressive disorder 3548 9007 F32.A Doing wellNeg suicidal ideations/ thoughts of self harmWishes to continueRF sent x 1yr [id number] Jcarlos Molina MD [facility] [address] [address] 09/08/2024 09:24:35 09/08/2024 12:09:49 Well woman health examination [id number] Z01.419 Annual gynecologi betsy exam performed. Patient will come back in a year unless there are new symptoms. Suggest Calcium with Vitamin D if not eating in diet. Patient advised to get annual flu shot. Recommend yearly physicals and perform monthly breast exams. Genetic testing is available for patients with family history of cancer. Engage in safe sexual practices, use condoms. Encouraged to have daily exercise. Avoid tobacco and illicit drugs, moderation of alcohol. If BMI greater than 25 dietary consult advised. If you have any questions please call or email. mammogram- UTD - 07/10/24 WNL at [place] colon cancer screening - MOD PCP DEXA scan- n/a Pap smear- pap w/ HPV collected laboratory evaluation - requested STI testing - declined Depressive disorder 4750 8649 F32.A Doing well on floxetine. Neg suicidal ideations/ thoughts of self harmWishes to continueRF sent x 1yr Health Concerns Section Related Observation LastModified by Organization Detai ls LastModified Time None Recorded Concern Status LastModified by Organization Details LastModified Time None Recorded Advance Directives Directive Y: Payers Encounter Date Sequence Insurance Name Policy Number Policy Robertson Covered Member ID Robertson Member ID Guarantor Name 07/13/2020 1 [id number] Shelia Tate [id number] Aminata Zahida Tate 07/17/2021 1 [id number] Shelia Tate [id number] Aminata Zahida Bebeto 07/19/2022 1 [id number] Shelia Tate [id number] Aminata Teague Bebeto 07/23/2023 1 [id number] Octaviaannette Sagrario Tate [id number] Aminata Teague Bebeto 09/08/2024 1 [id number] Octaviaannette Zabala Bebeto [id number] Aminata Teague Bebeto Notes Date Note Type Note Provider Name and Address Organization Details Recorded Time 07/13/2020 text/html Annual GYNReport ed bypatient.History: no gynecologic complaints Menstrual cycle:Normal menses; Still with menses every 1-2mos regular flow lasting 4-5d. Urinary symptoms:No hematuria; No incontinence Vulva:No genital lesion Vagina:Normal vaginal discharge Breast:No breast pain; No breast lump; No nipple discharge Current Contraception:[place] gamous relationship; Condoms Sexual complaints:No sexual complaints; No pain during intercourse; Normal libido Menopausal Symptoms:No menopausal symptoms; Normal vaginal lubrication Psychological symptoms:No depression; No anxiety; No PMDD Preventive measures:Encourage self breast examination; Encourage regular exercise; Encourage no tobacco use; Encourage regular mammograms starting age 40; Mammogram performed within the past year (See's siteman for yearly breast screening. Hx of breast cancer but in remission now. Not on any treatment.) Claudia Baker [facility] [address], [place], [address], [facility] 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.Menopaus al Symptoms:no menopausal symptoms; normal vaginal lubrication Vaginal Bleeding:history of menopause having occurred; no history of post menopausal bleeding Urinary Symptoms:no hematuria; no incontinence; no nocturia; no urinary frequency Vulva:no genital lesion; no vulvar atrophy Vagina:normal vaginal discharge; no vaginal atrophy Breast:no breast lump; no nipple discharge; no breast pain Sexual Complaints:no sexual complaints Psychological Symptoms:no depression; no anxiety Preventive Measures:encourage regular mammograms starting age 40; encourage self breast examination; encourage regular exercise; encourage no tobacco use; mammogram performed within the past year; history of recent colonoscopy [facility] [address], [place], [address], [facility] 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.Menopaus al Symptoms:no menopausal symptoms; normal vaginal lubrication Vaginal Bleeding:history of menopause having occurred; no history of post menopausal bleeding Urinary Symptoms:no hematuria; no incontinence; no nocturia; no urinary frequency Vulva:no genital lesion; no vulvar atrophy Vagina:normal vaginal discharge; no vaginal atrophy Breast:no breast lump; no nipple discharge; no breast pain Sexual Complaints:no sexual complaints Psychological Symptoms:no depression; no anxiety Preventive Measures:encourage regular mammograms starting age 40; encourage self breast examination; encourage regular exercise; encourage no tobacco use; needs to schedule mammogram; history of recent colonoscopy Claudia Baker [facility] [address], [place], [address], [facility] 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.Menopaus al Symptoms:no menopausal symptoms; normal vaginal lubrication Vaginal Bleeding:history of menopause having occurred; no history of post menopausal bleeding Urinary Symptoms:no hematuria; no incontinence; no nocturia; no urinary frequency Vulva:no genital lesion; no vulvar atrophy Vagina:normal vaginal discharge; no vaginal atrophy Breast:no breast lump; no nipple discharge; no breast pain Sexual Complaints:no sexual complaints Psychological Symptoms:no depression; no anxiety Preventive Measures:encourage regular mammograms starting age 40; encourage self breast examination; encourage regular exercise; encourage no tobacco use; mammogram performed within the past year; history of recent colonoscopy Claudia Baker [facility] [address], [place], [address], [facility] 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.Menopaus al Symptoms:no menopausal symptoms; normal vaginal lubrication Vaginal Bleeding:history of menopause having occurred; no history of post menopausal bleeding Urinary Symptoms:no hematuria; no incontinence; no nocturia; no urinary frequency Vulva:no genital lesion; no vulvar atrophy Vagina:normal vaginal discharge; no vaginal atrophy Breast:no breast lump; no nipple discharge; no breast pain Sexual Complaints:no sexual complaints Psychological Symptoms:no depression; no anxiety Preventive Measures:encourage regular mammograms starting age 40; encourage self breast examination; encourage regular exercise; encourage no tobacco use Patient presents for annual well woman exam. Patient denies concerns today. ODETTE MERCEDES NP [address], [place], [address], [facility] 09/08/2024 11:46:58 OBGyn Episode Ob Episode Information Episode Created Date Number of Fetuses Patient Bloodtype Patient rh Status Prepregnancy Weight lbs Domestic Partner Domestic Partner Phone Father Name Project Control Analyst Status 07/14/19 21 1 CLOSED Fetus Data First Name Last Name Admitted to NICU Weight (g) Sex Living Outcome Pediatric Complications Fetus ID Race Codes Race Delivery Type , Spontane ous [id number] Abhishek Calculation Initial Abhishek Date Initial Exam Date Initial Exam Provider Initial Ultrasound Date Last Menstrual Period Date Ultra Sound Weeks Gestation 0 Eighteen To Twenty Week Abhishek Update Ultra Sound Date Fundal Height At Umbil Quickening Date Ultra Sound Latest Weeks Gestation Final Abhishek Confirmed By Final Abhishek Confirmed Date Final Abhishek Date Ultra Sound Latest Days Gestation 0 0 Menstrual History Last Menstrual Date Menses Monthly On Bcp Conception Prior Menses Frequency Hcg Plus Date Menarche Onset Age Delivery Information Delivery Date Delivery Type Labor Anesthesia Weeks Gestation Incision Type Labor Labor Length Hrs Delivered By Post Complications Tubal Sterilization Discharge Date Comments 7 Discharge Information Feeding Method Contraceptive Method Maternal HG B and HCT Levels Ob Episode Information Episode Created Date Number of Fetuses Patient Bloodtype Patient rh Status Prepregnancy Weight lbs Domestic Partner Domestic Partner Phone Father Name Project Control Analyst Status 07/14/19 21 1 CLOSED Fetus Data First Name Last Name Admitted to NICU Weight (g) Sex Living Outcome Pediatric Complications Fetus ID Race Codes Race Delivery Type M [id number] Vaginal Delivery Abhishek Calculation Initial Abhishek Date Initial Exam Date Initial Exam Provider Initial Ultrasound Date Last Menstrual Period Date Ultra Sound Weeks Gestation 0 Eighteen To Twenty Week Abhishek Update Ultra Sound Date Fundal Height At Umbil Quickening Date Ultra Sound Latest Weeks Gestation Final Abhishek Confirmed By Final Abhishek Confirmed Date Final Abhishek Date Ultra Sound Latest Days Gestation 0 0 Menstrual History Last Menstrual Date Menses Monthly On Bcp Conception Prior Menses Frequency Hcg Plus Date Menarche Onset Age Delivery Information Delivery Date Delivery Type Labor Anesthesia Weeks Gestation Incision Type Labor Labor Length Hrs Delivered By Post Complications Tubal Sterilization Discharge Date Comments 8 Discharge Information Feeding Method Contraceptive Method Maternal HG B and HCT Levels Ob Episode Information Episode Created Date Number of Fetuses Patient Bloodtype Patient rh Status Prepregnancy Weight lbs Domestic Partner Domestic Partner Phone Father Name Project Control Analyst Status 07/14/19 21 1 CLOSED Fetus Data First Name Last Name Admitted to NICU Weight (g) Sex Living Outcome Pediatric Complications Fetus ID Race Codes Race Delivery Type F [id number] Vaginal Delivery Abhishek Calculation Initial Abhishek Date Initial Exam Date Initial Exam Provider Initial Ultrasound Date Last Menstrual Period Date Ultra Sound Weeks Gestation 0 Eighteen To Twenty Week Abhishek Update Ultra Sound Date Fundal Height At Umbil Quickening Date Ultra Sound Latest Weeks Gestation Final Abhishek Confirmed By Final Abhishek Confirmed Date Final Abhishek Date Ultra Sound Latest Days Gestation 0 0 Menstrual History Last Menstrual Date Menses Monthly On Bcp Conception Prior Menses Frequency Hcg Plus Date Menarche Onset Age Delivery Information Delivery Date Delivery Type Labor Anesthesia Weeks Gestation Incision Type Labor Labor Length Hrs Delivered By Post Complications Tubal Sterilization Discharge Date Comments 4 Discharge Information Feeding Method Contraceptive Method Maternal HG B and HCT Levels Ob Episode Information Episode Created Date Number of Fetuses Patient Bloodtype Patient rh Status Prepregnancy Weight lbs Domestic Partner Domestic Partner Phone Father Name Project Control Analyst Status 07/14/19 21 1 CLOSED Fetus Data First Name Last Name Admitted to NICU Weight (g) Sex Living Outcome Pediatric Complications Fetus ID Race Codes Race Delivery Type M [id number] Vaginal Delivery Abhishek Calculation Initial Abhishek Date Initial Exam Date Initial Exam Provider Initial Ultrasound Date Last Menstrual Period Date Ultra Sound Weeks Gestation 0 Eighteen To Twenty Week Abhishek Update Ultra Sound Date Fundal Height At Umbil Quickening Date Ultra Sound Latest Weeks Gestation Final Abhishek Confirmed By Final Abhishek Confirmed Date Final Abhishek Date Ultra Sound Latest Days Gestation 0 0 Menstrual History Last Menstrual Date Menses Monthly On Bcp Conception Prior Menses Frequency Hcg Plus Date Menarche Onset Age Delivery Information Delivery Date Delivery Type Labor Anesthesia Weeks Gestation Incision Type Labor Labor Length Hrs Delivered By Post Complications Tubal Sterilization Discharge Date Comments 1 Discharge Information Feeding Method Contraceptive Method Maternal HG B and HCT Levels
--- OUTSIDE RECORDS SUMMARY | 2024-09-14 19:22 | XMS_ITS | Clinical Summary ---
Author Organization [facility] D Address [address] [place] [address] Care Team Providers Care Fishing Instructor Name Role Phone Judit Ferrera MD Primary Care Provider + [phone] Allergies Active Allergy Reactions Criticality Noted Date Comments Meperidine Unknown,Other (See comments) Low 024 Medications ferrous sulfate (IRON) 325 mg (65 mg of elemental iron) tablet take 1 pill by oral route every day 30 2 04/02/20 15 Active loteprednol (ALREX) 0.2 % drops,suspensi on instill 1 drop by ophthalmic route every day into affected eye(s) 0 06/03/19 13 Active fexofenadine (MINGO) 180 mg tablet Take 1 tablet (180 mg total) by mouth daily Active FLUoxetine (PROzac) 20 mg capsule TAKE 3 CAPSULES BY MOUTH DAILY IN THE MORNING. 04/23/19 23 Active folic acid (FOLVITE) 1 mg tablet Take 1 tablet (1,000 mcg total) by mouth daily 90 tablet 5 12/27/19 23 Active aspirin 325 mg Take 2 tablets (650 mg total) by mouth 2 (two) times a day Active erythromycin (ILOTYCIN) ophthalmic ointment Place ointment on right eyelid incisions 3 times a day[address] Only place inside the eye for irritation. 3.5 g 3 08/26/19 24 Active Additional Information Patient not taking.Reported on 09/08/2024 traZODone (DESYREL) 50 mg tablet TAKE 1 TABLET BY MOUTH NIGHTLY 90 tablet 3 04/09/19 25 Active hydroxychloroq uine (PLAQUENIL) 200 mg tablet TAKE 1 TABLET (200 MG TOTAL) BY MOUTH 2 TIMES A DAY. 180 tablet 3 04/12/19 25 Active cetirizine HCl (ZYRTEC ORAL) Active cevimeline (EVOXAC) 30 mg capsule TAKE 1 CAPSULE BY MOUTH 3 TIMES A DAY. 270 capsule 07/25/19 25 Active methotrexate 2.5 mg tablet TAKE 4 TABLETS BY MOUTH EVERY 7 DAYS. 48 tablet 2 08/28/19 25 Active methotrexate 2.5 mg tablet TAKE 4 TABLETS BY MOUTH EVERY 7 DAYS. 48 tablet 2 11/13/19 24 025 Discontinued Active Problems Problem Noted Date Diagnosed Date History of breast cancer 04/28/2018 Screening status 01/24/2016 Overview (07/13/2016): Screening cholesterol level Malignant neoplasm of breast 01/20/2015 Overview (07/13/2016): Breast cancer Microcytic anemia 01/18/2015 Overview (07/13/2016): Microcytic anemia Depressive disorder 06/01/2014 Overview (09/08/2024): Depression;Recorded Elsewhere: No Location: [facility] Source: EHR Chronic: N Practice ID: [id number] Billable Time: 09:30:00 AM Arthritis 08/22/2013 Overview (07/13/2016): Inflammatory arthritis Fibrositis 08/15/2012 Overview (07/13/2016): Fibromyalgia Sjogren's syndrome 08/15/2012 Overview (07/14/2016): Sjogrens syndrome 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 Malaise and fatigue 02/01/2011 Overview (09/08/2024): Fatigue / Malaise;Recorded Elsewhere: No Location: [facility] Source: EHR Chronic: N Practice ID: [id number] Billable Time: 10:00:00 AM Encounters Date Type Department Care Team Description 09/08/2024 3:00 PM CDT Office Visit [facility] Rheumatology at [address] [address] Deidra Braga MD Sjogren's syndrome with keratoconjunctivitis sicca (Primary Dx); Long-term use of high-risk medication 09/07/2024 Orders Only [facility] Rheumatology at [address] [place] [address] Deidra Braga MD 07/13/2024 Results Follow-Up [facility] [address] [place] [address] 8 [place] [address] Sabina Reynaga NP Screening Mammogram Bilateral W Dash 07/10/2024 3:21 PM CDT - 07/10/2024 11:59 PM CDT Hospital Encounter [facility] - Breast Imaging [address] [place] [address] Floor 8 [place] [address] History of breast cancer Discharge Disposition: Discharge to home or self care 07/10/2024 3:15 PM CDT Office Visit [facility] [address] [place] [address] 8 [place] [address] Sabina Reynaga NP Ductal carcinoma in situ (DCIS) of left breast (Primary Dx); History of breast cancer; History of partial mastectomy of left breast; Encounter for screening mammogram for malignant neoplasm of breast from Last 3 Months Immunizations Immunization Administration Dates Next Due Influenza, Quadrivalent, Spl it, Preservative Free, Intradermal 01/15/2016 Influenza, Quadrivalent, Spl it, Preservative Free, Intramuscular 12/30/2019,01/21/2019,12/30/2017,12/29 Influenza, Trivalent, Cell Culture-based MDCK, Preservative Free, Antibiotic Free, Intramuscular 01/21/2024 Influenza, Trivalent, Preser vative Free, Intramuscular 01/21/2019,01/17/2015 Influenza, Trivalent, Split, Preservative Free, Intradermal 12/07/2013 Influenza, Unspecified 01/06/2021,01/21/2013 Moderna SARS-CoV-2 Monovalen t Vaccination (12+ YRS) 01/27/2021 Sars-cov-2 Covid-19 Mrna, Bi paloma, Ewa/brandan Paul.1 12/26/2023 ZOSTER LIVE 05/12/2018,03/04/2018 ZOSTER Recombinant 05/12/2018,03/04/2018 Surgical History Surgery Date Site/Laterality Comments OTHER SURGICAL HISTORY 04/08/2008 - 04/07/2009 breast CA: lumpectomy and radiation BREAST SURGERY 04/08/2008 - 05/08/2008 Medical History Medical History Date Comments Hx Other Medical breast CA Hx Other Medical srjogrens; Comm ents: [employer] 01/18/2015 - Depression Depression Sjogren's syndrome Autoimmune disease Family History Medical History Relation Name Comments Cancer Father Andrei Hyperlipidemia Father Andrei Hyperlipidemi a; Prostate cancer Father Andrei Cancer, pros prajapati; Diabetes Maternal Grandmother Cancer Mother Other Mother Pre diabetic; Skin cancer Mother Glaucoma Neg Hx Macular degeneration Neg Hx Thyroid disease Neg Hx Relation Name Status Comments Father Andrei Maternal Grandmother Mother Social History Tobacco Use Types Packs/Day Years Used Date Smoking Tobacco: Never Passive Smoke Exposure: Never Smokeless Tobacco: Never Tobacco Cessation:Counseling Given: Not Answered Alcohol Use Standard Drinks/Week Comments Yes 0 (1 standard drink = 0.6 oz pur e alcohol) AUDIT-C Answer Date Recorded Q1: How often do you have a drink containing alc ohol? Monthly or less 09/08/2024 Q2: How many drinks containi ng alcohol do you have on a typical day when you are drinking? 1 or 2 09/08/2024 Q3: How often do you have si x or more drinks on one occasion? 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 Gender Identity Not on file Sexual Orientation Not on file Obstetrics History Last Filed Vital Signs Vital Sign Reading Time Taken Comments Blood Pressure 102/74 09/08/2024 2:35 PM CDT Pulse 74 09/08/2024 2:35 PM CDT Temperature 36.5 C (97.7 F) 09/08/2024 2:35 PM CDT Respiratory Rate 14 09/08/2024 2:35 PM CDT Oxygen Saturation 98% 09/08/2024 2:35 PM CDT Inhaled Oxygen Concentration - - Weight 69.1 kg (152 lb 4.8 oz) 09/08/2024 2:35 P M CDT Height 172.7 cm (5' 7.99) 09/08/2024 2:35 PM CD T Body Mass Index 23.16 09/08/2024 2:35 PM CDT Plan of Treatment Health Maintenance Due Date Last Done Comments Cervical Cancer Screening 1966 Colon Cancer Screening-Colonoscopy 1966 Hepatitis C Screening 1966 DTaP/Tdap/Td Vaccine (1 - Tdap) 1977 Hepatitis B Screening 1984 Regular Well Visit/Exam 18-64 1984 Pneumococcal vaccine <65 (1 of 2 - PCV) 1985 Depression Screening 06/28/2022 06/28/2021, 07/31/19 19 Covid-19 Vaccine (2 - Modern a risk series) 01/23/2024 12/26/2023, 01/27/2021 Breast Cancer Screening-Mammogram 07/10/2025 07/10/2024, 06/25/2023, 06/19/2022, Additional history exists Zoster Vaccine Completed 05/12/2018, 07/2018, 03/04/2018, Additional history exists Influenza Vaccine Completed 01/21/2024, , 12/30/2019, Additional history exists Procedures Procedure Name Priority Date/Time Associated Diagnosis Comments ERYTHROCYTE SEDIMENTATION RATE Routine 09/07/2024 9:00 AM CDT CBC WITHOUT DIFFERENTIAL Routine 09/07/2024 9:00 AM CDT COMPREHENSIVE METABOLIC PANEL Routine 09/07/2024 9:00 AM CDT SCREENING MAMMOGRAM BILATERAL W DASH Schedule Routine, Read Routine (OP Routine) 07/10/2024 3:30 PM CDT History of breast cancer from Last 3 Months Results * Erythrocyte sedimentation rate (09/07/2024 9:00 AM CDT) Erythrocyte sedimentation rate 17 0 - 40 mm/hr [facility] - 01 09/07/2024 9:00 AM CDT 09/07/2024 Narrative [facility] - 09/08/2024 4:07 AM CDT Performed at: [address] [place] [id number] Hearth Feeder: Raul Garcia PhD, Phone: [phone] Deidra Braga MD LAB BLOOD ORDERABLES Final Result [facility] - * (ABNORMAL) CBC without differential (09/07/2024 9:00 AM CDT) WBC 2.6(L) 3.4 - 10.8 x10E3/uL [facility] - 01 RBC 4.38 3.77 - 5.28 x10E6/uL [facility] - 01 Hgb 13.0 11.1 - 15.9 g/dL [facility] - 01 Hct 41.4 34.0 - 46.6 % [facility] - 01 MCV 95 79 - 97 fL [facility] - 01 MCH 29.7 26.6 - 33.0 pg [facility] - 01 MCHC 31.4(L) 31.5 - 35.7 g/dL [facility] - 01 Rdw 13.6 11.7 - 15.4 % [facility] - 01 Platelets 222 150 - 450 x10E3/uL [facility] - 01 09/07/2024 9:00 AM CDT 09/07/2024 Narrative [facility] - 09/08/2024 4:07 AM CDT Performed at: [address] [place] [id number] Hearth Feeder: Raul Garcia PhD, Phone: [phone] Specimen Comment: A courtesy copy of this report has been sent to [phone] Deidra Braga MD LAB BLOOD ORDERABLES Final Result [facility] - * Comprehensive metabolic panel (09/07/2024 9:00 AM CDT) Glucose 89 70 - 99 mg/dL [facility] - 01 BUN 14 6 - 24 mg/dL [facility] - 01 Creatinine, Serum 0.95 0.57 - 1.00 mg/dL [facility] - 01 eGFR 69 >59 mL/min/1.73 [facility] - 01 BUN/creat ratio 15 9 - 23 [facility] - 01 Sodium 141 134 - 144 mmol/L [facility] - 01 Potassium, sr 4.8 3.5 - 5.2 mmol/L [facility] - 01 Chloride 106 96 - 106 mmol/L [facility] - 01 CO2 23 20 - 29 mmol/L [facility] - 01 Calcium 9.3 8.7 - 10.2 mg/dL [facility] - 01 Protein, sr 6.6 6.0 - 8.5 g/dL [facility] - 01 Albumin 4.0 3.8 - 4.9 g/dL [facility] - 01 Globulin, Total 2.6 1.5 - 4.5 g/dL [facility] - 01 Bilirubin, Total 0.4 0.0 - 1.2 mg/dL [facility] - 01 Alk phos 78 44 - 121 IU/L [facility] - 01 AST 24 0 - 40 IU/L [facility] - 01 ALT 22 0 - 32 IU/L [facility] - 01 Blood 09/07/2024 9:00 AM CDT 09/07/2024 Narrative [facility] - 09/08/2024 2:07 AM CDT Performed at: 01 - [facility] [id number] Hearth Feeder: Raul Garcia PhD, Phone: [phone] us Deidra Braga MD LAB BLOOD ORDERABLES Final Result [facility] - * Screening Mammogram Bilateral W Dash (07/10/2024 3:30 PM CDT) Anatomical Region Laterality Modality Breast Bilateral Mammography Addenda Addendum by Linh Ortega MD on 07/13/2024 10:37 AM CDT ADDENDED REPORT 07/13/2024 at 10:37:01 Addendum: Mammogram Findings: There are post breast conservation therapy changes in the left breast. Impression: Upon further review, post breast conservation therapy changes in the left breast are benign. Annual screening mammography is recommended. OVERALL FINAL ASSESSMENT: BI-RADS CATEGORY 2: Benign. THIS REPORT HAS BEEN ADDENDED Narrative 07/13/2024 10:36 AM CDT ORIGINAL REPORT Mammogram Technique: Bilateral Digital Breast Tomosynthesis, Bilateral C-view 2D Screening mammogram. Views obtained: bilateral craniocaudal and bilateral mediolateral oblique. Computer Aided Detection was performed. Mammogram Findings: The present examination has been compared to prior imaging studies performed at [facility] on 06/13/2021, 06/19/2022 and 06/25/2023. There are scattered areas of fibroglandular density. There is no suspicious abnormality in either breast. Impression: There is no mammographic evidence of malignancy. Annual screening mammography is recommended. OVERALL FINAL ASSESSMENT: BI-RADS CATEGORY 1: Negative. Procedure Note Linh Ortega MD - 07/13/2024 ORIGINAL REPORT Mammogram Technique: Bilateral Digital Breast Tomosynthesis, Bilateral C-view 2D Screening mammogram. Views obtained: bilateral craniocaudal and bilateral mediolateral oblique. Computer Aided Detection was performed. Mammogram Findings: The present examination has been compared to prior imaging studies performed at [facility] on 06/13/2021, 06/19/2022 and 06/25/2023. There are scattered areas of fibroglandular density. There is no suspicious abnormality in either breast. Impression: There is no mammographic evidence of malignancy. Annual screening mammography is recommended. OVERALL FINAL ASSESSMENT: BI-RADS CATEGORY 1: Negative. Sabina Reynaga NP IMG MAMMO PROCEDURES Edite d Result - Final from Last [address] [address] [place] [address] [id number] [place] BLUE ACCESS CHOICE MS Care Teams Fishing Instructor Relationship Specialty Start Date End Date Judit Ferrera MD [address] [place] [address] PCP - General Family Medicine 12/26/21
--- OUTSIDE RECORDS SUMMARY | 2024-09-14 19:22 | XMS_ITS | Clinical Summary ---
Author Organization [facility] Address [address] 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
--- OUTSIDE RECORDS SUMMARY | 2024-09-14 19:22 | XMS_ITS | Data Portability ---
Author Organization [facility] Address [address] [place] [address] Assessment No assessment recorded. Plan of Treatment Reminders Order Date Submit Date Provider Last Modified By Organization Details Last Modified Time Details Appointments None recorded. Lab SARS CoV 2 RNA (COVID-19), QL, medical review coordinator-PCR, respiratory specimen - headaches, dizziness, X 2 days, un sure of exposure to COVID -19 person. [facility] [address] [facility] [address] [place], [address], 0 18:24:05 Referral None recorded. Procedures None recorded. Surgeries None recorded. Imaging None recorded. Medication Orders None recorded. Patient TargetsNo targets recorded. Patient Instructions Encounter Date Encounter Id Patient Instructions Last Modified By Organization Details Last Modified Time 08/27/2019 [id number] Reviewed the following recommendations: -Stay home and separate from others as much as possible. -Monitor your symptoms and seek medical attention for trouble breathing, persistent chest pain, confusion, or bluish lips or face. -Wear a mask if you must be around other people. -Wash your hands often for 20 seconds with soap and water and clean high-touch surfaces daily -You may discontinue home isolation if your symptoms are improving and it has been 10 days since symptoms started. [email or web address] Not available 08/27/2019 15:15:45 Reason for Referral None Reported. Results Created Date Observation Date Name Description Value Unit Range Abnormal Flag Note LastModifiedBy Organization Detail LastModifiedTime 08/27/19 20 08/27/2019 SARS CoV 2 RNA (COVI D-19) , QL, medical review coordinator-P CR, respi rator y speci men sars - cov - 2 PCR NEGATI VE mL Not Available [facility] (Lab) [address] [facility], [place], [address], 08/28/2019 18:24:05 08/27/19 20 08/27/2019 SARS CoV 2 RNA (COVI D-19) , QL, medical review coordinator-P CR, respi rator y speci men covidcom1 COMME NTS: This assay is desig kailey to detec t the RdRp and N genes of SARS- CoV-2 using nucle ic acid ampli ficat ion. A negat matthew resul t does not precl ude the possi bilit y of 2019- nCoV infec tion since the adequ acy of sampl e colle ction and/o r low viral burde n may resul t in the prese nce of viral nucle ic acids level s below the bryanna tical sensi tivit y of this test metho d. Not Available [facility] (Lab) [address] [facility], [place], [address], 08/28/2019 18:24:05 08/27/19 20 08/27/2019 SARS CoV 2 RNA (COVI D-19) , QL, medical review coordinator-P CR, respi rator y speci men covidcom2 Posit matthew resul ts are indic ative of the prese nce of SARS- CoV-2 RNA and do not rule out bacte rial infec tion or co-in fecti on with other virus es. Not Available [facility] (Lab) [address] [facility], [place], [address], 08/28/2019 18:24:05 08/27/19 20 08/27/2019 SARS CoV 2 RNA (COVI D-19) , QL, medical review coordinator-P CR, respi rator y speci men covidcom3 Test resul ts shoul d be used along with other clini greg obser vatio ns, patie nt histo ry, epide miolo gical infor matio n and labor atory data in makin g the diagn osis. Not Available [facility] (Lab) [address] [facility], [place], [address], 08/28/2019 18:24:05 08/27/19 20 08/27/2019 SARS CoV 2 RNA (COVI D-19) , QL, medical review coordinator-P CR, respi rator y speci men covidcom4 This test has recei linda FDA Emerg ency Use Autho rizat ion and has been verif ied by [facility] [facility] [employer] . This test is only autho rized for the durat ion of the decla ratio n and the circu mstan blas that exist to justi fy the autho rizat ion of the emerg ency use of in vitro diagn ostic tests for the detec tion of SARS- CoV-2 virus and/o r diagn osis of COVID -19 infec tion under secti on 564 (b) (1) of the Act. 11 U.S.C . 360bb b-3 (b) (1), unles s the autho rizat ion is termi nated or revok ed soone r. Not Available [facility] (Lab) [address] [place], [address], 08/28/2019 18:24:05 08/27/19 20 08/27/2019 SARS CoV 2 RNA (COVI D-19) , QL, medical review coordinator-P CR, respi rator y speci men covidcom5 [facility] at[facility] is certi fied under CLIA- 88 as quali fied to perfo rm high compl exity testi ng. This testi ng was perfo rmed in the [facility] [place] [address] (CLIA Licen se #[id number], CAP #[id number], AU-ID #[id number]). Not Available [facility] (Lab) [address] [place], [address], 08/28/2019 18:24:05 08/27/19 20 08/27/2019 SARS CoV 2 RNA (COVI D-19) , QL, medical review coordinator-P CR, respi rator y speci men covidcom6 Facts heet for healt hcare provi ders: https ://ww w.fda .gov/ media /1362 56/do wnloa d Facts heet for jack nts: https ://ww w.fda .gov/ media /1362 57/do wnloa d Not Available [facility] (Lab) [address], [place], [address], 08/28/2019 18:24:05 Result Notes None recorded. Medical Equipment None Reported. Medications Name Sig Start Date Stop Date Status Note LastModified by Organization Details LastModified Time trazodone 50 mg tablet active Not Available Not Available Not Available Claudio 128 5 % eye ointment active Not Available Not Available Not Available methotrexate sodium 2.5 mg tablet active Not Available Not Availabl e Not Available cevimeline 30 mg capsule active Not Available Not Available Not Available folic acid 1 mg tablet active Not Available Not Available Not Available hydroxychloroquine 200 mg tablet active Not Available Not Availabl e Not Available fluoxetine 20 mg capsule active Not Available Not Available Not Available tranexamic acid 650 mg tablet active Not Available Not Available No t Available Fluzone Quad (PF) 60 mcg (15 mcg x 4)/0.5 mL IM syringe active Not Available Not Available Not Available Vitals None Recorded Social History None recorded. Functional Status None recorded. Mental Status None recorded. Family History Nothing Reported. Medical History No medical history recorded. Gynecological HistoryNo gynecological history recorded. Obstetrics History GPAL:G 0 P 0 0 0 0 Past Encounters Encounter ID Performer Location Encounter Start Date Encounter Closed Date Diagnosis/Indication Diagnosis SNOMED-CT Code Diagnosis ICD10 Code Diagnosis Note [id number] AGGIE Figueroa [address] [place] [address] 08/27/2019 15:08:48 09/01/2019 08:01:23 Suspected COVID-19 367209465 Z03.818 D/w pt the current pandemic of COVID-19 and call for social isolation in order to blunt the curve and minimize risk and spread. Encouraged patient and family to take restrictio ns seriously. They have verbalized understand ing of such. Viral syndrome 981594471 B34.9 Health Concerns Section Related Observation LastModified by Organization Angelina mathis LastModified Time None Recorded Concern Status LastModified by Organization Details LastModified Time None Recorded Advance Directives Directive None Recorded Payers Encounter Date Sequence Insurance Name Policy Number Policy Robertson Covered Member ID Robertson Member ID Guarantor Name 08/27/2019 1 [id number] Shelia Tate [id number] Shelia Tate Notes Date Note Type Note Provider Name and Address Organization Details Recorded Time 08/27/2019 text/html COVID ScreeningReported bypatient.Onset/Durati on of fever:no fever Associated Symptoms:no cough; no shortness of breath ComorbiditiesImmunocom promised state(RA sjogrens)COVID-19 Symptoms June 2019Reported bypatient.COVID-19 Signs and Symptomscough resolved; fever resolved; shortness of breath resolved Associated Symptoms:no sputum production; no shortness of breath; no wheezing; no fever; no runny nose; no sore throat; no vomiting; no diarrhea; no body aches; no nausea; no change in mental status; no hypotension; no tachycardia 54 yo female ,spoke via phone with C/O, headaches, dizziness, X 2 days, un sure of exposure to COVID -19 person. KENYETTA Bolivar NP Attn: Accounting,[address] [place], [address], [facility] 08/27/2019 15:16:18 OBGyn Episode No OBEpisode recorded.
--- OUTSIDE RECORDS SUMMARY | 2024-09-14 19:22 | XMS_ITS | Encounter Summary ---
Author Organization [facility] Address [address] [facility] [address] [place] [address] Phone Care Team Providers Care Supervisor Carding Name Role Phone Judit Ferrera MD Primary Care Provider [phone] Encounter Details Date Type Department Care Team (Late st Contact Info) Description 07/13/2024 Results Follow-Up [facility] Surgery [address] [facility] [address] [place] [address] Sabina Reynaga NP [address] [facility] [id number] [place] [address] Screening Mammogram Bilateral W Dash Social History Tobacco Use Types Packs/Day Years Used Date Smoking Tobacco: Never Passive Smoke Exposure: Never Smokeless Tobacco: Never Alcohol Use Standard Drinks/Week Comments Yes 0 [...] on file 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 Monthly or less 09/08/2024 2:39 PM CDT Shannon Verma MA Q2: How many drinks containing alcohol do you have on a typical day when you are drinking? 1 or 2 09/08/2024 2:39 PM CDT Shannon Verma MA Q3: How often do you have six or more drinks on one occasion? Never 09/08/2024 2:39 PM RIGOBERTOT Shannon Verma MA documented as of this encounter Plan of Treatment Not on file documented as of this encounter Visit Diagnoses Not on filedocumented in this encounter Care Teams Supervisor Carding Relationship Specialty Start Date End Date Judit Ferrera MD [address] [place] [address] PCP - General Family Medicine 12/26/21 documented as of this encounter
--- OUTSIDE RECORDS SUMMARY | 2024-09-14 19:22 | XMS_ITS | Referral Summary ---
Author Organization [facility] D Address [address] [place] [address] Care Team Providers Care Chute Tapper Name Role Phone Judit Ferrera MD Primary Care Provider Encounters Date Type Department Care Team Description 09/08/2024 3:00 PM CDT Office Visit [facility] Rheumatology at [address] [phone] Deidra Braga MD Sjogren's syndrome with keratoconjunctivitis sicca (Primary Dx); Long-term use of high-risk medication 09/07/2024 Orders Only [facility] Rheumatology at [address] [address] Deidra Braga MD 07/13/2024 Results Follow-Up [facility] Surgery [address] [place] [address] 8 [place] [phone] Sabina Reynaga NP Screening Mammogram Bilateral W Dash 07/10/2024 3:21 PM CDT - 07/10/2024 11:59 PM CDT Hospital Encounter [facility] [place] - Breast Imaging [address] [place] [address] Floor 8 [place] [address] History of breast cancer Discharge Disposition: Discharge to home or self care 07/10/2024 3:15 PM CDT Office Visit [facility] Surgery [address] [facility] 8 [place] [phone] Sabina Reynaga NP Ductal carcinoma in situ (DCIS) of left breast (Primary Dx); History of breast cancer; History of partial mastectomy of left breast; Encounter for screening mammogram for malignant neoplasm of breast from Last 3 Months Allergies Active Allergy Reactions Criticality Noted Date [...] 06/01/2014 Overview (09/08/2024): Depression;Recorded Elsewhere: No Location: [facility] Source: EHR Chronic: N Practice ID: [id number] Billable Time: 09:30:00 AM Arthritis 08/22/2013 Overview (07/13/2016): Inflammatory arthritis Fibrositis 08/15/2012 Overview (07/13/2016): Fibromyalgia Sjogren's syndrome 08/15/2012 Overview (07/14/2016): Sjogrens syndrome 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 Malaise and fatigue 02/01/2011 Overview (09/08/2024): Fatigue / Malaise;Recorded Elsewhere: No Location: [facility] Source: EHR Chronic: N Practice ID: [id number] Billable Time: 10:00:00 AM Immunizations Immunization Administration Dates Next Due Influenza, Quadrivalent, Spl it, Preservative Free, Intradermal 01/15/2016 Influenza, Quadrivalent, Spl it, Preservative Free, Intramuscular 12/30/2019,01/21/2019,12/30/2017,12/29 Influenza, Trivalent, Cell Culture-based MDCK, Preservative Free, Antibiotic Free, Intramuscular 01/21/2024 Influenza, Trivalent, Preser vative Free, Intramuscular 01/21/2019,01/17/2015 Influenza, Trivalent, Split, Preservative Free, Intradermal 12/07/2013 Influenza, Unspecified 01/06/2021,01/21/2013 Moderna SARS-CoV-2 Monovalen t Vaccination (12+ YRS) 01/27/2021 Sars-cov-2 Covid-19 Zaira, Ewa Levy/brandan Paul.1 12/26/2023 ZOSTER LIVE 05/12/2018,03/04/2018 ZOSTER Recombinant 05/12/2018,03/04/2018 Social History Tobacco Use Types Packs/Day Years [...] on file 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8 x10E3/uL [facility] [...] - 09/08/2024 4:07 AM CDT Performed at: - [address] [id number] Tax Investigator: Raul Garcia PhD, Phone: [phone] Specimen Comment: A courtesy copy of this report has been sent to [phone] us Deidra Braga MD LAB BLOOD ORDERABLES Final Result [facility] - 01 * Comprehensive metabolic panel (09/07/2024 9:00 AM [...] 2:07 AM CDT Performed at: 01 - [address] [id number] Tax Investigator: Raul Garcia PhD, Phone: [phone] us Deidra Braga MD LAB BLOOD ORDERABLES Final Result [facility] - 01 * Screening Mammogram Bilateral W Dash (07/10/2024 [...] compared to prior imaging studies performed at [facility] on 06/13/2021, 06/19/2022 and 06/25/2023. There are [...] compared to prior imaging studies performed at [facility] on 06/13/2021, 06/19/2022 and 06/25/2023. There are scattered areas of fibroglandular density. There is no suspicious abnormality in either breast. Impression: There is no mammographic evidence of malignancy. Annual screening mammography is recommended. OVERALL FINAL ASSESSMENT: BI-RADS CATEGORY 1: Negative. Sabina Reynaga NP IMG MAMMO PROCEDURES Edite d Result - Final from Last 3 [place] [address] [employer] ACC[employer] CHOICE [employer] ACCESS CHOICE PR Care Teams Chute Tapper Relationship Specialty Start Date End Date Judit Ferrera MD [address] [place] [address] PCP - General Family Medicine 12/26/21
[2024-09-14 19:24] VITALS: BP 110/75; PULSE 88; RESP 16; TEMP 36.7; O2SAT 100
--- OUTSIDE RECORDS SUMMARY | 2024-09-14 21:42 | XMS_ITS | Referral Summary ---
Author Organization [facility] D Address [address] [place] [phone] Care Team Providers Care Bullet Lubricating Machine Operator Name Role Phone Judit Ferrera MD Primary Care Provider Encounters Date Type Department Care Team Description 09/08/2024 3:00 PM CDT Office Visit [facility] Rheumatology at [address] [phone] Deidra Braga MD Sjogren's syndrome with keratoconjunctivitis sicca (Primary Dx); Long-term use of high-risk medication 09/07/2024 Orders Only [facility] Rheumatology at [address], [place] [address] Deidra Braga MD 07/13/2024 Results Follow-Up [facility] Surgery [address] [place] [address] 8 [place] [phone] Sabina Reynaga NP Screening Mammogram Bilateral W Dash 07/10/2024 3:21 PM CDT - 07/10/2024 11:59 PM CDT Hospital Encounter [facility] [place] - Breast Imaging [address] [place] [address] Floor 8 [place] [address] History of breast cancer Discharge Disposition: Discharge to home or self care 07/10/2024 3:15 PM CDT Office Visit [facility] Surgery [address] [facility] 8 [place] [phone] Sabina Reynaga NP Ductal carcinoma in situ [...] 06/01/2014 Overview (09/08/2024): Depression;Recorded Elsewhere: No Location: [facility] Source: EHR Chronic: N Practice ID: [id number] Billable Time: 09:30:00 AM Arthritis 08/22/2013 Overview (07/13/2016): Inflammatory arthritis Fibrositis 08/15/2012 Overview (07/13/2016): Fibromyalgia Sjogren's syndrome 08/15/2012 Overview (07/14/2016): Sjogrens syndrome 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 Malaise and fatigue 02/01/2011 Overview (09/08/2024): Fatigue / Malaise;Recorded Elsewhere: No Location: [facility] Source: EHR Chronic: N Practice ID: [id number] [...] on file 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 Gender Identity Not on file Sexual Orientation [...] 09/08/2024 4:07 AM CDT Performed at: [address] [place] [id number] [employer]: Raul Garcia PhD, Phone: [phone] us Deidra Braga MD LAB BLOOD ORDERABLES Final Result [facility] - 01 * (ABNORMAL) CBC without differential (09/07/2024 9:00 AM CDT) Pathologist [facility] WBC 2.6(L) 3.4 - 10.8 x10E3/uL [facility] [...] 09/08/2024 4:07 AM CDT Performed at: - [address] [id number] [employer]: Raul Garcia PhD, Phone: [phone] Specimen Comment: A courtesy copy of this report has been sent to [phone] us Deidra Braga MD LAB BLOOD ORDERABLES [...] 2:07 AM CDT Performed at: 01 - [address] [id number] [employer]: Raul Garcia PhD, Phone: [phone] us Deidra Braga MD LAB BLOOD ORDERABLES Final Result [facility] - 01 * Screening Mammogram Bilateral [...] compared to prior imaging studies performed at [facility] on 06/13/2021, 06/19/2022 and 06/25/2023. There are [...] compared to prior imaging studies performed at [facility] on 06/13/2021, 06/19/2022 and 06/25/2023. There are scattered areas of fibroglandular density. There is no suspicious abnormality in either breast. Impression: There is no mammographic evidence of malignancy. Annual screening mammography is recommended. OVERALL FINAL ASSESSMENT: BI-RADS CATEGORY 1: Negative. Sabina Reynaga NP IMG MAMMO PROCEDURES Edite d Result - Final from Last 3 [place] [address] [employer] [place] [employer] [place] [employer] [place] Care Teams Bullet Lubricating Machine Operator Relationship Specialty Start Date End Date Judit Ferrera MD [address] [place] [address] PCP - General Family Medicine 12/26/21
--- OUTSIDE RECORDS SUMMARY | 2024-09-14 21:42 | XMS_ITS | Clinical Summary ---
Author Organization [facility] D Address [address] [place] [address] Care Team Providers Care Shampoo Technician Name Role Phone Judit Ferrera MD Primary Care Provider + [phone] Allergies Active Allergy Reactions Criticality Noted Date [...] 06/01/2014 Overview (09/08/2024): Depression;Recorded Elsewhere: No Location: [facility] Source: EHR Chronic: N Practice ID: [id number] Billable Time: 09:30:00 AM Arthritis 08/22/2013 Overview (07/13/2016): Inflammatory arthritis Fibrositis 08/15/2012 Overview (07/13/2016): Fibromyalgia Sjogren's syndrome 08/15/2012 Overview (07/14/2016): Sjogrens syndrome 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 Malaise and fatigue 02/01/2011 Overview (09/08/2024): Fatigue / Malaise;Recorded Elsewhere: No Location: [facility] Source: EHR Chronic: N Practice ID: [id number] Billable Time: 10:00:00 AM Encounters Date Type Department Care Team Description 09/08/2024 3:00 PM CDT Office Visit [facility] Rheumatology at [address], [place] [address] Deidra Braga MD Sjogren's syndrome with keratoconjunctivitis sicca (Primary Dx); Long-term use of high-risk medication 09/07/2024 Orders Only [facility] Rheumatology at [address] [place] [address] Deidra Braga MD 07/13/2024 Results Follow-Up [facility] Surgery [address] [place] [address] 8 [place] [address] Sabina Reynaga NP Screening Mammogram Bilateral W Dash 07/10/2024 3:21 PM CDT - 07/10/2024 11:59 PM CDT Hospital Encounter [facility] - Breast Imaging [address] [place] [address] Floor 8 [place] [address] History of breast cancer Discharge Disposition: Discharge to home or self care 07/10/2024 3:15 PM CDT Office Visit [facility] Surgery [address] [place] [address] 8 [place] [phone] Sabina Reynaga NP Ductal carcinoma in situ [...] on file 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 Gender Identity Not on file Sexual Orientation [...] - 09/08/2024 4:07 AM CDT Performed at: [address] [place] [id number] German Teacher: Raul Garcia PhD, Phone: [phone] Deidra Braga MD LAB BLOOD ORDERABLES Final [...] - 09/08/2024 4:07 AM CDT Performed at: [address] [place] [id number] German Teacher: Raul Garcia PhD, Phone: [phone] Specimen Comment: A courtesy copy of this report has been sent to [phone] Deidra Braga MD LAB BLOOD ORDERABLES Final [...] 2:07 AM CDT Performed at: 01 - [facility] [id number] German Teacher: Raul Garcia PhD, Phone: [phone] us Deidra Braga MD LAB BLOOD ORDERABLES [...] compared to prior imaging studies performed at [facility] on 06/13/2021, 06/19/2022 and 06/25/2023. [...] compared to prior imaging studies performed at [facility] on 06/13/2021, 06/19/2022 and 06/25/2023. There are scattered areas of fibroglandular density. There is no suspicious abnormality in either breast. Impression: There is no mammographic evidence of malignancy. Annual screening mammography is recommended. OVERALL FINAL ASSESSMENT: BI-RADS CATEGORY 1: Negative. Sabina Reynaga NP IMG MAMMO PROCEDURES Edite d Result - Final from Last [address] [place] [address] [place] [address] [employer] BLUE ACCESS CHOICE [place] Care Teams Shampoo Technician Relationship Specialty Start Date End Date Judit Ferrera MD [address] [place] [address] PCP - General Family Medicine 12/26/21
--- OUTSIDE RECORDS SUMMARY | 2024-09-14 21:42 | XMS_ITS | Encounter Summary ---
Author Organization [facility] Address [address] [facility] [address] [place] [address] Phone Care Team Providers Care Assistance Specialist Name Role Phone Judit Ferrera MD Primary Care Provider Encounter Details Date Type Department Care Team (Late st Contact Info) Description 07/13/2024 Results Follow-Up [facility] Surgery [address] [facility] Floor 8 [place] [address] Sabina Reynaga NP [address] [facility] [phone] [place] [address] Screening Mammogram Bilateral W Dash Social History [...] on file 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
--- OUTSIDE RECORDS SUMMARY | 2024-09-14 21:42 | XMS_ITS | Clinical Summary ---
Author Organization [employer] [facility] Address [address] 

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
--- NOTE | 2024-09-14 22:22 | ECG_ITS ---
Test Date: 2024-09-14 22:48:47 Measurements Intervals Mobile Rate: 64 P: 49 AL: 162 QRS: 46 QRSD: 90 T: 36 QT: 452 QTc: 466 Interpretive Statements SINUS RHYTHM POSSIBLE LEFT ATRIAL ENLARGEMENT BASELINE ARTIFACT- I, II, III, AVR, AVL, AVF BORDERLINE ECG No previous ECG available for comparison Electronically Signed On 09-15-2024 06:27:23 CDT by Fercho Howell D.O.
[2024-09-14 22:30] VITALS: BP 123/82; PULSE 75; RESP 14; O2SAT 99
[2024-09-14 22:38] VITALS: BP 121/85; PULSE 65; RESP 15; TEMP 36.6; O2SAT 99
[2024-09-14 22:55] LABS: Basophils Percent Auto 0.4 % (0.2-1.2); Eosinophils Absolute Auto 0.1 K/mm3 (0-0.3); Eosinophils Percent Auto 0.9 % (0-4.4); Hematocrit 38.8 % (37.0-47.0); Hemoglobin 12.4 g/dL (12.0-15.0); Immature Granulocyte Absolute 0.02 K/mm3 (0.00-0.031); Immature Granulocyte Percent A 0.3 % (0-0.5); Lymphocytes Absolute Auto 1.13 K/mm3 (0.9-3.2); Lymphocytes Percent Auto 16.5 % (18.3-44.2); Mean Corpuscular Hemoglobin 29.3 pg (26-34); Mean Corpuscular Volume 91.7 fl (80-100); Mean Platelet Volume 9.3 fl (7.4-10.4); Monocytes Absolute Auto 0.8 K/mm3 (0.1-0.6); Monocytes Percent Auto 11.4 % (2.6-8.5); Neutrophils Absolute Auto 4.8 K/mm3 (1.3-6.7); Neutrophils Percent Auto 70.5 % (45.5-73.1); Platelet Count Result 185 k/mm3 (150-375); Red Blood Count 4.23 M/mm3 (4.2-5.4); Red Cell Distribution Width 14.1 % (11.5-14.5); White Blood Count 6.8 K/mm3 (4.5-10.0)
[2024-09-14 23:06] LABS: INR 1.1; Prothrombin Time 14.6 Seconds (11.1-14.7)
[2024-09-14 23:07] LABS: Partial Thromboplastin Time 27.5 Seconds (22.3-36.8)
[2024-09-14 23:11] LABS: Alanine Aminotransferase 25 U/L (6-35); Albumin Level 4.1 g/dL (3.5-5.1); Alkaline Phosphatase 74 U/L (38-126); Anion Gap 6 mmol/L (4-12); Aspartate Amino Transferase 32 U/L (14-36); Bilirubin,Total 0.4 mg/dL (0.2-1.3); Blood Urea Nitrogen 16 mg/dL (7-17); Calcium 9.3 mg/dL (8.4-10.2); Carbon Dioxide 24 mmol/L (22-30); Chloride 104 mmol/L (98-107); Estimated CRCL calculation 63 ml/min; Estimated Glomerular Filt Rate > 60; Glucose 90 mg/dL (65-110); Potassium 3.6 mmol/L (3.4-5.0); Sodium 134 mmol/L (137-145); Total Protein 7.3 g/dL (6.3-8.2)
[2024-09-14] MEDS: MORPHINE SULFATE (*CRX) 4 MG/ML INJ IV PUSH (23:20)
[2024-09-14] MEDS: ONDANSETRON INJ 4 MG/2 ML VIAL IV PUSH (23:20)
[2024-09-14] MEDS: traZODone HCL 50 MG TABLET PO (23:42)
[2024-09-15] VITALS (7 sets, daily range): BP systolic 96–114; BP diastolic 59–71; PULSE 66–73; RESP 12–17; TEMP 36.1–36.9; O2SAT 93–99; BMI 23.2
[2024-09-15] MEDS: SODIUM CHLORIDE 0.9% IV 1,000 ML 100 ML IV CONT (00:40)
[2024-09-15] MEDS: ONDANSETRON INJ 4 MG/2 ML VIAL IV PUSH (00:53)
[2024-09-15] MEDS: MORPHINE SULFATE (*CRX) 4 MG/ML INJ IV PUSH ×3 (01:22→09:01)
--- NOTE | 2024-09-15 02:05 | PM.IMHP ---
H&P: HPI History of Present Illness Date/Time: 09/15/24 02:05 [facility] Past Medical History Medical History Prolonged QT interval IBS (irritable bowel syndrome) Migraines Chronic insomnia Anxiety Depression Seasonal allergic rhinitis Sjogrens syndrome Family History Family History (Updated 09/15/24 @ 01:09 by Ba Andrade RN) Grandparent Family history of malignant neoplasm of kidney Malignant neoplasm of prostate Family history of malignant neoplasm of urinary bladder Family history of coronary artery disease Hypertension Father Malignant neoplasm of prostate Family history of elevated blood lipids Heart disease Mother Heart disease Social History Social History Smoking status: Never smoker Second hand tobacco smoke exposure: No Alcohol intake: current Drinks per week: 1 Alcohol use details: 1-2/mo Substance use: never Substance use type: does not use Do You Feel Safe in your Home?: Yes Lack of Transportation: No Lack of Food: Never True Current Housing: I Have Housing Concerned About Future Housing: No Difficulty Paying Gas/Electric Bills: No Difficulty Paying for Meds: No Currently Unemployed: YES Education: Bachelor's Degree Difficulty w/ Childcare or Family Care: No Living arrangements: with family Occupation/Education: unemployed Gender identity (if verbalized by the patient): Female Sexual Orientation (if Verbalized by the Patient): Straight or Heterosexual Spiritual care concerns: No Meds Home Medications and Allergies Home Medications ?Medication ?Instructions ?Recorded ?Confirmed ?Type cevimeline 30 mg capsule 1 cap PO TID 08/22/20 09/15/24 History fexofenadine 180 mg tablet 180 mg PO DAILY 08/22/20 09/15/24 History (Sveta Allergy) fluoxetine 40 mg capsule (Prozac) 60 mg PO DAILY 08/22/20 09/15/24 History folic acid 1 mg tablet 1 mg PO DAILY 08/22/20 09/15/24 History hydroxychloroquine 200 mg tablet 200 mg PO HS 08/22/20 09/15/24 History loteprednol etabonate 0.2 % eye 1 drp EACH EYE QID 08/22/20 09/15/24 History drops,suspension (Alrex) methotrexate sodium 2.5 mg tablet 10 mg PO WEEKLY 08/22/20 09/15/24 History trazodone 50 mg tablet 50 mg PO QHS PRN Insomnia 08/22/20 09/15/24 History Allergies Allergy/AdvReac Type Severity Reaction Status Date / Time latex Allergy Intermediate ITCHING Verified 04/22/23 14:34 Vital Signs Vital Signs - 24 hr 09/14/24 19:24 09/14/24 22:30 09/14/24 22:38 Temperature 98.0 F 97.8 F Pulse Rate 88 75 65 Respiratory Rate 16 14 15 Blood Pressure 110/75 123/82 121/85 Pulse Oximetry 100 99 99 Oxygen Delivery Room Air Room Air 09/15/24 00:14 09/15/24 00:49 09/15/24 00:59 Temperature 97.2 F L Pulse Rate 66 68 66 Respiratory Rate 12 16 14 Blood Pressure 114/71 106/65 114/71 Pulse Oximetry 99 97 99 Oxygen Delivery 09/15/24 01:54 Temperature Pulse Rate Respiratory Rate Blood Pressure Pulse Oximetry Oxygen Delivery Room Air H&P: Results Labs Labs: Laboratory Tests 09/14/24 22:39 09/14/24 22:39 09/14/24 22:39 WBC 6.8 RBC 4.23 Hgb 12.4 Hct 38.8 MCV 91.7 MCH 29.3 MCHC 32.0 RDW 14.1 Plt Count 185 MPV 9.3 Immature Gran % (Auto) 0.3 Neut % (Auto) 70.5 Lymph % (Auto) 16.5 L Bertie % (Auto) 11.4 H Eos % (Auto) 0.9 Baso % (Auto) 0.4 Lymph # (Auto) 1.13 Bertie # (Auto) 0.8 H Eos # (Auto) 0.1 Baso # (Auto) 0.0 Abs Immat Gran (auto) 0.02 Absolute Neuts (auto) 4.8 Absolute Nucleated RBC 0.000 Nucleated RBC % 0.0 PT 14.6 INR 1.1 APTT 27.5 Sodium 134 L Potassium 3.6 Chloride 104 Carbon Dioxide 24 Anion Gap 6 BUN 16 Creatinine 0.86 Estim Creat Clear Calc 63 Estimated GFR > 60 Glucose 90 Calcium 9.3 Total Bilirubin 0.4 AST 32 ALT 25 Alkaline Phosphatase 74 Total Protein 7.3 Albumin 4.1 Impressions Hip/Pelvis X-Ray 09/14/24 20:24 IMPRESSION: No acute osseous abnormality pelvis and left hip. Chest X-Ray 09/14/24 20:26 IMPRESSION: Prominent bronchovascular markings with interstitial thickening which may indicate pneumonitis. Follow-up and clinical correlation advised. Head CT 09/14/24 21:19 IMPRESSION: No acute intracranial process. Pelvis CT 09/14/24 21:19 IMPRESSION: Highly suggestive fracture involving the capitellum of the left posteriorly femoral head extending to the femoral neck. Clinical correlation and follow-up advised. Cervical Spine CT 09/14/24 21:22 IMPRESSION: No acute fracture or traumatic malalignment in the cervical spine. Tibia/Fibula X-Ray 09/14/24 23:17 IMPRESSION: No acute osseous finding the left tibia/fibula.
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
[2024-09-15 10:18] LABS: Basophils Percent Auto 0.8 % (0.2-1.2); Eosinophils Absolute Auto 0.1 K/mm3 (0-0.3); Eosinophils Percent Auto 2.3 % (0-4.4); Hematocrit 38.2 % (37.0-47.0); Immature Granulocyte Absolute 0.02 K/mm3 (0.00-0.031); Immature Granulocyte Percent A 0.5 % (0-0.5); Lymphocytes Absolute Auto 0.71 K/mm3 (0.9-3.2); Lymphocytes Percent Auto 17.8 % (18.3-44.2); Mean Corpuscular HGB Conc 31.4 g/dl (32-36); Mean Corpuscular Hemoglobin 29.7 pg (26-34); Mean Corpuscular Volume 94.6 fl (80-100); Monocytes Absolute Auto 0.6 K/mm3 (0.1-0.6); Monocytes Percent Auto 15.3 % (2.6-8.5); Neutrophils Absolute Auto 2.5 K/mm3 (1.3-6.7); Neutrophils Percent Auto 63.3 % (45.5-73.1); Platelet Count Result 159 k/mm3 (150-375); Red Blood Count 4.04 M/mm3 (4.2-5.4); Red Cell Distribution Width 14.4 % (11.5-14.5)
[2024-09-15 10:40] LABS: Alanine Aminotransferase 22 U/L (6-35); Albumin Level 3.5 g/dL (3.5-5.1); Alkaline Phosphatase 61 U/L (38-126); Anion Gap 5 mmol/L (4-12); Aspartate Amino Transferase 32 U/L (14-36); Bilirubin,Total 0.6 mg/dL (0.2-1.3); Blood Urea Nitrogen 16 mg/dL (7-17); Calcium 8.5 mg/dL (8.4-10.2); Carbon Dioxide 26 mmol/L (22-30); Chloride 109 mmol/L (98-107); Estimated CRCL calculation 65 ml/min; Estimated Glomerular Filt Rate > 60; Glucose 94 mg/dL (65-110); Sodium 140 mmol/L (137-145); Total Protein 6.3 g/dL (6.3-8.2)
[2024-09-15] MEDS: LORATADINE 10 MG TABLET PO (12:28)
[2024-09-15] MEDS: LOTEPREDNOL ETABONATE 0.2% OPH 5 ML SUSP 1 DROP EACH EYE ×3 (12:29→21:13)
[2024-09-15] MEDS: HYDROcodone/acetaminophen (*CRX) 5-325 MG TABLET 2 TAB PO ×2 (12:33→18:18)
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
[2024-09-15] MEDS: HYDROXYCHLOROQUINE SULFATE 200 MG TABLET PO (21:14)
[2024-09-15] MEDS: traZODone HCL 50 MG TABLET PO (22:17)
[2024-09-15] MEDS: LACTATED RINGERS 1,000 ML 30 ML IV CONT (22:17)
[2024-09-16] VITALS (15 sets, daily range): BP systolic 103–128; BP diastolic 69–90; PULSE 67–88; RESP 10–22; TEMP 36.1–37.1; O2SAT 93–100
[2024-09-16] MEDS: HYDROcodone/acetaminophen (*CRX) 5-325 MG TABLET 2 TAB PO (00:42)
[2024-09-16 05:34] LABS: Basophils Absolute Auto 0.1 K/mm3 (0.0-0.1); Basophils Percent Auto 1.6 % (0.2-1.2); Eosinophils Absolute Auto 0.2 K/mm3 (0-0.3); Eosinophils Percent Auto 4.9 % (0-4.4); Hematocrit 39.2 % (37.0-47.0); Hemoglobin 12.3 g/dL (12.0-15.0); Immature Granulocyte Absolute 0.01 K/mm3 (0.00-0.031); Immature Granulocyte Percent A 0.3 % (0-0.5); Lymphocytes Absolute Auto 0.93 K/mm3 (0.9-3.2); Lymphocytes Percent Auto 25.3 % (18.3-44.2); Mean Corpuscular HGB Conc 31.4 g/dl (32-36); Mean Corpuscular Hemoglobin 29.4 pg (26-34); Mean Corpuscular Volume 93.8 fl (80-100); Mean Platelet Volume 9.2 fl (7.4-10.4); Monocytes Absolute Auto 0.6 K/mm3 (0.1-0.6); Monocytes Percent Auto 14.9 % (2.6-8.5); Platelet Count Result 159 k/mm3 (150-375); Red Blood Count 4.18 M/mm3 (4.2-5.4); Red Cell Distribution Width 14.1 % (11.5-14.5); White Blood Count 3.7 K/mm3 (4.5-10.0)
[2024-09-16 05:53] LABS: Alanine Aminotransferase 21 U/L (6-35); Albumin Level 3.6 g/dL (3.5-5.1); Alkaline Phosphatase 71 U/L (38-126); Anion Gap 8 mmol/L (4-12); Aspartate Amino Transferase 33 U/L (14-36); Bilirubin,Total 0.5 mg/dL (0.2-1.3); Blood Urea Nitrogen 14 mg/dL (7-17); Calcium 8.8 mg/dL (8.4-10.2); Carbon Dioxide 24 mmol/L (22-30); Chloride 106 mmol/L (98-107); Estimated CRCL calculation 65 ml/min; Estimated Glomerular Filt Rate > 60; Glucose 96 mg/dL (65-110); Magnesium 2.1 mg/dL (1.6-2.3); Potassium 4.3 mmol/L (3.4-5.0); Sodium 138 mmol/L (137-145); Total Protein 6.6 g/dL (6.3-8.2)
[2024-09-16] MEDS: LOTEPREDNOL ETABONATE 0.2% OPH 5 ML SUSP 1 DROP EACH EYE ×3 (09:36→20:12)
[2024-09-16] MEDS: LACTATED RINGERS 1,000 ML 30 ML IV CONT ×2 (13:30→15:15)
--- NOTE | 2024-09-16 13:41 | P.PNAN_ITS ---
Anes - Initial Pre Proc Eval Procedure: Operation Date: 09/16/24 14:00 Proposed Procedures p Left Hip Screw Fixation - Hugo Napier MD Date/Time: 09/16/24 13:41 Surgeon: Danelle Jarvis DO Pre Op Diagnosis: L femoral neck fracture Patient Data Age: 59 Gender: F Height: 1.73 m Weight: 69.3 kg Last Vital Signs Temp 36.9 C 09/16/24 05:16 Pulse 74 09/16/24 08:00 Resp 16 09/16/24 08:00 BP 114/80 09/16/24 05:16 Pulse Ox 94 09/16/24 08:00 O2 Del Method Room Air 09/16/24 08:00 Allergies Allergy/AdvReac Type Severity Reaction Status Date / Time latex Allergy Intermediate ITCHING Verified 04/22/23 14:34 Home Medications ?Medication ?Instructions ?Recorded ?Confirmed ?Type cevimeline 30 mg capsule 1 cap PO TID 08/22/20 09/15/24 History fexofenadine 180 mg tablet 180 mg PO DAILY 08/22/20 09/15/24 History (Sveta Allergy) fluoxetine 40 mg capsule (Prozac) 60 mg PO DAILY 08/22/20 09/15/24 History folic acid 1 mg tablet 1 mg PO DAILY 08/22/20 09/15/24 History hydroxychloroquine 200 mg tablet 200 mg PO HS 08/22/20 09/15/24 History loteprednol etabonate 0.2 % eye 1 drp EACH EYE QID 08/22/20 09/15/24 History drops,suspension (Alrex) methotrexate sodium 2.5 mg tablet 10 mg PO WEEKLY 08/22/20 09/15/24 History trazodone 50 mg tablet 50 mg PO QHS PRN Insomnia 08/22/20 09/15/24 History Laboratory Tests 09/15/24 09/16/24 10:09 05:12 WBC 3.7 L K/mm3 (4.5-10.0) RBC 4.18 L M/mm3 (4.2-5.4) Hgb 12.3 g/dL (12.0-15.0) Hct 39.2 % (37.0-47.0) MCV 93.8 fl (80-100) MCH 29.4 pg (26-34) MCHC 31.4 L g/dl (32-36) RDW 14.1 % (11.5-14.5) Plt Count 159 k/mm3 (150-375) MPV 9.2 fl (7.4-10.4) Immature Gran % (Auto) 0.3 % (0-0.5) Neut % (Auto) 53.0 % (45.5-73.1) Lymph % (Auto) 25.3 % (18.3-44.2) [place] % (Auto) 14.9 H % (2.6-8.5) Eos % (Auto) 4.9 H % (0-4.4) Baso % (Auto) 1.6 H % (0.2-1.2) Lymph # (Auto) 0.93 K/mm3 (0.9-3.2) [place] # (Auto) 0.6 K/mm3 (0.1-0.6) Eos # (Auto) 0.2 K/mm3 (0-0.3) Baso # (Auto) 0.1 K/mm3 (0.0-0.1) Abs Immat Gran (auto) 0.01 K/mm3 (0.00-0.031) Absolute Neuts (auto) 2.0 K/mm3 (1.3-6.7) Absolute Nucleated RBC 0.000 K/mm3 (0.0-0.012) Nucleated RBC % 0.0 % (0.0-0.2) Sodium 138 mmol/L (137-145) Potassium 4.3 mmol/L (3.4-5.0) Chloride 106 mmol/L (98-107) Carbon Dioxide 24 mmol/L (22-30) Anion Gap 8 mmol/L (4-12) BUN 14 mg/dL (7-17) Creatinine 0.83 mg/dL (0.7-1.0) Estim Creat Clear Calc 65 ml/min Estimated GFR > 60 (59 - ) Glucose 96 mg/dL (65-110) Calcium 8.8 mg/dL (8.4-10.2) Magnesium 2.0 mg/dL 2.1 mg/dL (1.6-2.3) (1.6-2.3) Total Bilirubin 0.5 mg/dL (0.2-1.3) AST 33 U/L (14-36) ALT 21 U/L (6-35) Alkaline Phosphatase 71 U/L (38-126) Total Protein 6.6 g/dL (6.3-8.2) Albumin 3.6 g/dL (3.5-5.1) Patient hx anesthesia problems: none Family hx anesthesia problems: none Results Review: All pre-operative results and documents have been reviewed as part of the pre- operative evaluation. [facility] Past Medical History Medical History Prolonged QT interval IBS (irritable bowel syndrome) Migraines Chronic insomnia Anxiety Depression Seasonal allergic rhinitis Sjogrens syndrome Family History Family History Grandparent Family history of malignant neoplasm of kidney Malignant neoplasm of prostate Family history of malignant neoplasm of urinary bladder Family history of coronary artery disease Hypertension Father Malignant neoplasm of prostate Family history of elevated blood lipids Heart disease Mother Heart disease Social History Social History Smoking status: Never smoker Second hand tobacco smoke exposure: No Alcohol intake: current Drinks per week: 1 Alcohol use details: 1-2/mo Substance use: never Substance use type: does not use Do You Feel Safe in your Home?: Yes Lack of Transportation: No Lack of Food: Never True Current Housing: I Have Housing Concerned About Future Housing: No Difficulty Paying Gas/Electric Bills: No Difficulty Paying for Meds: No Currently Unemployed: YES Education: Bachelor's Degree Difficulty w/ Childcare or Family Care: No Living arrangements: with family Occupation/Education: unemployed Gender identity (if verbalized by the patient): Female Sexual Orientation (if Verbalized by the Patient): Straight or Heterosexual Spiritual care concerns: No Anes - Eval Final PreProcedure Day of Procedure 09/16/24 13:41 Patient weight: normal Heart: regular rate and rhythm Lungs: clear to auscultation Airway: Mallampati scale class II Neurological: alert and oriented Last oral intake: >/= 8 hours ASA classification: III Emergent: no Anesthetic plan: proceed Anesthesia type and monitoring: general LMA and standard monitoring Results Review: All pre-operative results and documents have been reviewed as part of the pre- operative evaluation. Informed Consent: The patient's anesthetic plan and its attendant risks and benefits were discussed with the patient/family/POA. Questions were solicited and answers provided to the satisfaction of the patient/family/POA.
--- NOTE | 2024-09-16 13:59 | WPDHPUPDATE1 ---
History and Physical Update Update Date/Time: 09/16/24 13:59 History and Physical has been reviewed, including an updated exam of the patient. There are NO changes in the patient's condition. Risks, benefits, and alternatives have been discussed and questions answered. Patient agrees to proceed with procedure. Procedure is percutaneous Screw Fixation of Left Hip Fracture
[2024-09-16] MEDS: ceFAZolin 2 GM/D5W 50 ML 2 GM/50 ML BAG IVPB (14:06)
[2024-09-16] MEDS: LIDO 1%/EPINEPHRINE 1:100,000 20 ML VIAL 30 ML INFILTRATE (14:41)
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
--- NOTE | 2024-09-16 15:46 | P.OP_ITS ---
Procedure Note - Detailed Date of Procedure 09/16/24 Pre-op Diagnosis L femoral neck fracture Post-op Diagnosis Same Procedure Performed 1. Left a hip percutaneous fracture fixation with three 6.5 millimeter cannulated screws. 2. Left Hip Fluoroscopy Surgeon Hugo Napier MD Anesthesia General Indications Left hip femoral neck fracture Findings Left hip Femoral Neck Fracture Description of Procedure Operative Note: Left Hip Percutaneous Fixation ? Femoral Neck Fracture Procedure Left Hip Percutaneous Fixation of Femoral Neck Fracture Indications ? Femoral Neck Fracture of the Left Hip ? Decision made for operative fixation using cannulated screws to provide stable internal fixation Procedure Description After obtaining informed consent, the patient was brought to the Operating Room and positioned supine. The Right Lower Extremity was flexed to 90 degrees at both the Hip and Knee, while the Left Lower Extremity was kept in full extension at both joints and placed in minimal traction on the fracture table. Fluoroscopy was used initially to confirm the fracture location and guide positioning. The Left Hip was then prepped and draped in the usual sterile fashion. A surgical timeout was performed confirming: ? Correct patient ? Correct procedure ? Correct site ? Administration of 2 grams of Ancef within one hour prior to incision Using fluoroscopy, a starting point for hardware was determined. The first guide wire was placed just proximal to the Lesser Trochanter, targeting the center of the Femoral Neck in the AP view and inferior Femoral Neck and Head in the lateral view, to avoid the creation of a stress riser. Two additional guide wires were placed anteriorly and posteriorly, aimed at the proximal Femoral Neck. Proper extra-articular positioning of the guide wires was confirmed in both AP and lateral views via fluoroscopy. The screw lengths were then measured, and a lateral cortex opening was drilled. Three 6.5 mm partially threaded cannulated screws were placed across the Femoral Neck and Head. Screw position and fixation were confirmed with fluoroscopic AP and lateral imaging, demonstrating excellent bony purchase. The incision was then: ? Irrigated copiously ? Injected with Lidocaine ? Closed with two interrupted Vicryl sutures ? Covered with Steri-Strips ? Bandaged in a sterile manner The patient was transferred to the Recovery Room in stable condition. Implants [place] 6.5mm Cannulated Screws Estimated Blood Loss 10 Urine Output 1,150 Drains No Packing No Pathology None sent Complications No immediate complications Condition Stable Disposition PACU
[2024-09-16] MEDS: HYDROmorphone HCL INJ (*CRX) 2 MG/ML VIAL 0.5 MG IV PUSH (18:26)
[2024-09-16] MEDS: SENNA/DOCUSATE SODIUM TABLET 2 TAB PO (18:26)
[2024-09-16] MEDS: SODIUM CHLORIDE 0.9% IV 1,000 ML 100 ML IV CONT ×2 (18:28→22:25)
[2024-09-16] MEDS: ONDANSETRON INJ 4 MG/2 ML VIAL IV PUSH (19:30)
[2024-09-16] MEDS: traZODone HCL 50 MG TABLET PO (20:08)
[2024-09-16] MEDS: HYDROXYCHLOROQUINE SULFATE 200 MG TABLET PO (20:08)
[2024-09-16] MEDS: ACETAMINOPHEN 325 MG TABLET 650 MG PO (20:08)
[2024-09-16] MEDS: ASPIRIN 81 MG ENTERIC TABLET PO (20:08)
[2024-09-16] MEDS: HYDROcodone/acetaminophen (*CRX) 5-325 MG TABLET 1 TAB PO (23:58)
[2024-09-17] VITALS (8 sets, daily range): BP systolic 106–123; BP diastolic 70–82; PULSE 71–84; RESP 16–20; TEMP 36.5–37.5; O2SAT 96–100
[2024-09-17] MEDS: HYDROcodone/acetaminophen (*CRX) 5-325 MG TABLET 1 TAB PO ×3 (05:53→17:42)
[2024-09-17 06:02] LABS: Basophils Percent Auto 0.8 % (0.2-1.2); Eosinophils Absolute Auto 0.2 K/mm3 (0-0.3); Eosinophils Percent Auto 3.2 % (0-4.4); Hematocrit 37.1 % (37.0-47.0); Hemoglobin 11.6 g/dL (12.0-15.0); Immature Granulocyte Absolute 0.01 K/mm3 (0.00-0.031); Immature Granulocyte Percent A 0.2 % (0-0.5); Lymphocytes Absolute Auto 0.85 K/mm3 (0.9-3.2); Lymphocytes Percent Auto 17.9 % (18.3-44.2); Mean Corpuscular HGB Conc 31.3 g/dl (32-36); Mean Corpuscular Hemoglobin 29.7 pg (26-34); Mean Corpuscular Volume 94.9 fl (80-100); Mean Platelet Volume 9.6 fl (7.4-10.4); Monocytes Absolute Auto 0.4 K/mm3 (0.1-0.6); Monocytes Percent Auto 8.6 % (2.6-8.5); Neutrophils Absolute Auto 3.3 K/mm3 (1.3-6.7); Neutrophils Percent Auto 69.3 % (45.5-73.1); Platelet Count Result 143 k/mm3 (150-375); Red Blood Count 3.91 M/mm3 (4.2-5.4); Red Cell Distribution Width 14.2 % (11.5-14.5); White Blood Count 4.8 K/mm3 (4.5-10.0)
[2024-09-17 06:14] LABS: Alanine Aminotransferase 27 U/L (6-35); Albumin Level 3.3 g/dL (3.5-5.1); Alkaline Phosphatase 62 U/L (38-126); Anion Gap 6 mmol/L (4-12); Aspartate Amino Transferase 39 U/L (14-36); Bilirubin,Total 0.3 mg/dL (0.2-1.3); Blood Urea Nitrogen 12 mg/dL (7-17); Calcium 8.5 mg/dL (8.4-10.2); Carbon Dioxide 24 mmol/L (22-30); Chloride 108 mmol/L (98-107); Estimated CRCL calculation 72 ml/min; Estimated Glomerular Filt Rate > 60; Glucose 103 mg/dL (65-110); Magnesium 1.9 mg/dL (1.6-2.3); Potassium 3.8 mmol/L (3.4-5.0); Sodium 138 mmol/L (137-145); Total Protein 6.2 g/dL (6.3-8.2)
[2024-09-17] MEDS: SODIUM CHLORIDE 0.9% IV 1,000 ML 100 ML IV CONT ×2 (08:31→19:18)
[2024-09-17] MEDS: polyethylene glycoL 3350 17 GM POWD.PACK PO (08:32)
[2024-09-17] MEDS: FLUoxetine HCL 20 MG CAPSULE 60 MG PO (08:32)
[2024-09-17] MEDS: SENNA/DOCUSATE SODIUM TABLET 2 TAB PO ×2 (08:33→17:39)
[2024-09-17] MEDS: LOTEPREDNOL ETABONATE 0.2% OPH 5 ML SUSP 1 DROP EACH EYE ×2 (08:33→17:40)
[2024-09-17] MEDS: LORATADINE 10 MG TABLET PO (08:33)
[2024-09-17] MEDS: ASPIRIN 81 MG ENTERIC TABLET PO ×2 (08:33→21:06)
[2024-09-17] MEDS: FOLIC ACID 1 MG TABLET PO (08:33)
--- NOTE | 2024-09-17 09:05 | PCPTNOTE ---
Spoke with Dr. Napier Pt to be TTWB. Nurse Astrid notify.
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
--- NOTE | 2024-09-17 13:37 | P.PNAN_ITS ---
Anes - Prog Note Post-Op Date/Time: 09/17/24 13:37 Cardiovascular status: normal Respiratory status: normal Airway patency: baseline Mental status: baseline Post-Op hydration status: normal Vital Signs: Last Vital Signs Temp 98.2 F 09/17/24 13:13 Pulse 73 09/17/24 13:13 Resp 18 09/17/24 13:13 BP 122/80 09/17/24 13:13 Pulse Ox 100 09/17/24 13:13 O2 Del Method Room Air 09/17/24 11:15 O2 Flow Rate 8 09/16/24 15:45 Pain Score (VAS): I/O: Intake & Output 09/16/24 09/17/24 09/17/24 23:59 07:59 15:59 Intake Total 2135 650 1480 Balance 2135 650 1480 Laboratory Tests 09/17/24 05:35 09/17/24 05:35 09/17/24 05:35 WBC 4.8 RBC 3.91 L Hgb 11.6 L Hct 37.1 MCV 94.9 MCH 29.7 MCHC 31.3 L RDW 14.2 Plt Count 143 L MPV 9.6 Immature Gran % (Auto) 0.2 Neut % (Auto) 69.3 Lymph % (Auto) 17.9 L [place] % (Auto) 8.6 H Eos % (Auto) 3.2 Baso % (Auto) 0.8 Lymph # (Auto) 0.85 L [place] # (Auto) 0.4 Eos # (Auto) 0.2 Baso # (Auto) 0.0 Abs Immat Gran (auto) 0.01 Absolute Neuts (auto) 3.3 Absolute Nucleated RBC 0.000 Nucleated RBC % 0.0 Sodium 138 Potassium 3.8 Chloride 108 H Carbon Dioxide 24 Anion Gap 6 BUN 12 Creatinine 0.74 Estim Creat Clear Calc 72 Estimated GFR > 60 Glucose 103 Calcium 8.5 Magnesium 1.9 Total Bilirubin 0.3 AST 39 H ALT 27 Alkaline Phosphatase 62 Total Protein 6.2 L Albumin 3.3 L Post-procedural complaints: none Patient Feedback: Patient satisfied with anesthetic care.
--- NOTE | 2024-09-17 18:51 | PM.PNORT ---
Progress Note: A&P Assessment and Plan (1) Closed fracture of neck of left femur: Qualifiers: Encounter type: initial encounter Qualified Code(s): S72.002A - Fracture of unspecified part of neck of left femur, initial encounter for closed fracture Code(s): S72.002A - Fracture of unspecified part of neck of left femur, initial encounter for closed fracture Status: Acute Plan doing very well, plan dc tomorrow. - follow up in 2 weeks - TTWB Left LE - ASA 81mg bid for 4 wks Subjective Subjective Date/Time Seen: 09/17/24 18:51 Post Op day: 1 (Much improved Left hip Pain) Exam Narrative: Resting comfortably with left hip flexed Objective Data Vital Signs Vital Signs: Vital Signs - 24 hr 09/16/24 20:54 09/17/24 00:44 09/17/24 05:21 Temperature 37.1 C 37.5 C 36.7 C Pulse Rate 87 79 84 Respiratory Rate 16 20 16 Blood Pressure 103/69 106/70 120/78 Pulse Oximetry 93 96 97 Oxygen Delivery 09/17/24 08:00 09/17/24 09:08 09/17/24 09:19 Temperature 36.8 C Pulse Rate 74 74 Respiratory Rate 18 18 Blood Pressure 113/73 Pulse Oximetry 99 99 Oxygen Delivery Room Air Room Air 09/17/24 11:15 09/17/24 13:13 09/17/24 17:21 Temperature 36.8 C 36.5 C Pulse Rate 73 77 Respiratory Rate 18 18 Blood Pressure 122/80 122/80 Pulse Oximetry 100 97 Oxygen Delivery Room Air Intake/Output Intake/Output: Intake & Output 09/14/24 09/15/24 09/16/24 09/17/24 23:59 23:59 23:59 23:59 Intake Total 1270 2185 3470 Output Total 9851 6360 Balance -3972 -002 3470 Meds/Results Medications: Active Medications Generic Name Dose Route Start Last Admin Trade Name Freq PRN Reason Stop Dose Admin Acetaminophen 650 mg 09/15/24 09:21 09/16/24 20:08 Acetaminophen 325 Mg Tablet PO 650 mg Q6H PRN Administration Mild Pain (1-3) or Fever Hydrocodone Bitart/Acetaminophen 1 tab 09/15/24 09:21 09/17/24 17:42 Hydrocodone/Acetaminophen (*Crx) 5-325 Mg Tablet PO 1 tab Q6H PRN Administration Pain Rated 4-6 Hydrocodone Bitart/Acetaminophen 2 tab 09/15/24 09:21 09/16/24 00:42 Hydrocodone/Acetaminophen (*Crx) 5-325 Mg Tablet PO 2 tab Q6H PRN Administration Pain Rated 7-10 Aspirin 81 mg 09/16/24 21:00 09/17/24 08:33 Aspirin 81 Mg Enteric Tablet PO 81 mg Q12HR CESAR Administration Dextrose 12.5 gm 09/14/24 23:07 Dextrose 50% 25 Gm/50 Ml Syringe IV PUSH PRN PRN Hypoglycemia Protocol Fentanyl Citrate 25 mcg 09/16/24 13:40 Fentanyl Citrate Inj (*Crx) 100 Mcg/2 Ml Vial IV PUSH Q2M PRN Pain Fluoxetine HCl 60 mg 09/16/24 09:00 09/17/24 08:32 Fluoxetine Hcl 20 Mg Capsule PO 60 mg DAILY CESAR Administration Folic Acid 1 mg 09/16/24 09:00 09/17/24 08:33 Folic Acid 1 Mg Tablet PO 1 mg DAILY CESAR Administration Glucagon 1 mg 09/14/24 23:07 Glucagon For Inj 1 Mg Vial IM PRN PRN Hypoglycemia Protocol Glucose 15 gm 09/14/24 23:07 Glucose Oral Gel 15 Gm Of Glucse In 37.5 Gm Tube PO PRN PRN Hypoglycemia Protocol Hydromorphone HCl 0.5 mg 09/14/24 23:07 09/16/24 18:26 Hydromorphone Hcl Inj (*Crx) 2 Mg/Ml Vial IV PUSH 0.5 mg Q4H PRN Administration Pain Rated 7-10 Hydroxychloroquine Sulfate 200 mg 09/15/24 21:00 09/16/24 20:08 Hydroxychloroquine Sulfate 200 Mg Tablet PO 200 mg HS CESAR Administration Dextrose 1,000 mls @ 100 mls/hr 09/14/24 23:07 Dextrose 5% 1,000 Ml IVPB PRN PRN Hypoglycemia Protocol Sodium Chloride 1,000 mls @ 100 mls/hr 09/16/24 10:00 09/17/24 16:51 Normal Saline Iv IV CONT Not Given .Q10H CESAR Loratadine 10 mg 09/15/24 09:00 09/17/24 08:33 Loratadine 10 Mg Tablet PO 10/16/24 08:59 10 mg DAILY CESAR Administration Loteprednol Etabonate 1 drop 09/15/24 09:00 09/17/24 17:40 Loteprednol Etabonate 0.2% Oph 5 Ml Susp EACH EYE 1 drop QID CESAR Administration Methotrexate 10 mg 09/15/24 10:30 09/15/24 11:18 Methotrexate 2.5 Mg Tab (*Chemo) PO Not Given Mo@0900 [facility] Miscellaneous Information 0 each 09/15/24 00:01 Cevimeline 30 Mg = Non Formulary, Please Have Patient Bring Home Med In. XX 10/15/24 00:00 CLARIFY [facility] Morphine Sulfate 4 mg 09/14/24 23:07 09/15/24 09:01 Morphine Sulfate (*Crx) 4 Mg/Ml Inj IV PUSH 4 mg Q2H PRN Administration Pain Rated 4-6 Non-Formulary Medication 1 cap 09/15/24 13:00 Cevimeline PO 10/15/24 12:59 TID [facility] Ondansetron HCl 4 mg 09/14/24 23:07 09/16/24 19:30 Ondansetron Inj 4 Mg/2 Ml Vial IV PUSH 4 mg Q4H PRN Administration Nausea Ondansetron HCl 4 mg 09/16/24 13:40 Ondansetron Inj 4 Mg/2 Ml Vial IV PUSH ONCE PRN Nausea Polyethylene Glycol 17 gm 09/17/24 09:00 09/17/24 08:32 Polyethylene Glycol 3350 17 Gm Powd.Pack PO 17 gm QAM CESAR Administration Senna/Docusate Sodium 2 tab 09/16/24 17:00 09/17/24 17:39 Senna/Docusate Sodium Tablet PO 2 tab BID CESAR Administration Trazodone HCl 50 mg 09/15/24 09:10 09/16/24 20:08 Trazodone Hcl 50 Mg Tablet PO 50 mg QHS PRN Administration Insomnia Radiology Results: ITS Impressions Hip/Pelvis X-Ray 09/14/24 20:24 IMPRESSION: No acute osseous abnormality pelvis and left hip. Chest X-Ray 09/14/24 20:26 IMPRESSION: Prominent bronchovascular markings with interstitial thickening which may indicate pneumonitis. Follow-up and clinical correlation advised. Head CT 09/14/24 21:19 IMPRESSION: No acute intracranial process. Pelvis CT 09/14/24 21:19 IMPRESSION: Highly suggestive fracture involving the capitellum of the left posteriorly femoral head extending to the femoral neck. Clinical correlation and follow-up advised. Cervical Spine CT 09/14/24 21:22 IMPRESSION: No acute fracture or traumatic malalignment in the cervical spine. Tibia/Fibula X-Ray 09/14/24 23:17 IMPRESSION: No acute osseous finding the left tibia/fibula. Intraoperative X-Ray 09/17/24 08:26 IMPRESSION: 1. Expected appearance during lag screw fixation of a nondisplaced subcapital fracture of the left femur. See procedure note for further detail. Labs Labs: Laboratory Results - last 24 hr 09/17/24 05:35 WBC 4.8 RBC 3.91 L Hgb 11.6 L Hct 37.1 MCV 94.9 MCH 29.7 MCHC 31.3 L RDW 14.2 Plt Count 143 L MPV 9.6 Immature Gran % (Auto) 0.2 Neut % (Auto) 69.3 Lymph % (Auto) 17.9 L [place] % (Auto) 8.6 H Eos % (Auto) 3.2 Baso % (Auto) 0.8 Lymph # (Auto) 0.85 L [place] # (Auto) 0.4 Eos # (Auto) 0.2 Baso # (Auto) 0.0 Abs Immat Gran (auto) 0.01 Absolute Neuts (auto) 3.3 Absolute Nucleated RBC 0.000 Nucleated RBC % 0.0 Sodium 138 Potassium 3.8 Chloride 108 H Carbon Dioxide 24 Anion Gap 6 BUN 12 Creatinine 0.74 Estim Creat Clear Calc 72 Estimated GFR > 60 Glucose 103 Calcium 8.5 Magnesium 1.9 Total Bilirubin 0.3 AST 39 H ALT 27 Alkaline Phosphatase 62 Total Protein 6.2 L Albumin 3.3 L
[2024-09-17] MEDS: HYDROXYCHLOROQUINE SULFATE 200 MG TABLET PO (21:06)
[2024-09-17] MEDS: ACETAMINOPHEN 325 MG TABLET 650 MG PO (21:06)
[2024-09-17] MEDS: traZODone HCL 50 MG TABLET PO (21:06)
[2024-09-18] MEDS: HYDROcodone/acetaminophen (*CRX) 5-325 MG TABLET 2 TAB PO (00:23)
[2024-09-18 06:00] VITALS: BP 110/71; PULSE 87; RESP 12; TEMP 36.2; O2SAT 100
[2024-09-18 06:28] LABS: Eosinophils Absolute Auto 0.2 K/mm3 (0-0.3); Eosinophils Percent Auto 5.3 % (0-4.4); Hematocrit 38.4 % (37.0-47.0); Hemoglobin 11.8 g/dL (12.0-15.0); Immature Granulocyte Absolute 0.02 K/mm3 (0.00-0.031); Immature Granulocyte Percent A 0.5 % (0-0.5); Lymphocytes Absolute Auto 0.87 K/mm3 (0.9-3.2); Lymphocytes Percent Auto 20.9 % (18.3-44.2); Mean Corpuscular HGB Conc 30.7 g/dl (32-36); Mean Corpuscular Hemoglobin 29.1 pg (26-34); Mean Corpuscular Volume 94.8 fl (80-100); Mean Platelet Volume 9.5 fl (7.4-10.4); Monocytes Absolute Auto 0.5 K/mm3 (0.1-0.6); Monocytes Percent Auto 12.5 % (2.6-8.5); Neutrophils Absolute Auto 2.5 K/mm3 (1.3-6.7); Neutrophils Percent Auto 59.8 % (45.5-73.1); Platelet Count Result 151 k/mm3 (150-375); Red Blood Count 4.05 M/mm3 (4.2-5.4); Red Cell Distribution Width 14.2 % (11.5-14.5); White Blood Count 4.2 K/mm3 (4.5-10.0)
[2024-09-18 06:47] LABS: Alanine Aminotransferase 30 U/L (6-35); Albumin Level 3.6 g/dL (3.5-5.1); Alkaline Phosphatase 64 U/L (38-126); Anion Gap 6 mmol/L (4-12); Aspartate Amino Transferase 42 U/L (14-36); Bilirubin,Total 0.4 mg/dL (0.2-1.3); Blood Urea Nitrogen 10 mg/dL (7-17); Calcium 9.1 mg/dL (8.4-10.2); Carbon Dioxide 25 mmol/L (22-30); Chloride 109 mmol/L (98-107); Estimated CRCL calculation 65 ml/min; Estimated Glomerular Filt Rate > 60; Glucose 91 mg/dL (65-110); Potassium 4.1 mmol/L (3.4-5.0); Sodium 140 mmol/L (137-145); Total Protein 6.8 g/dL (6.3-8.2)
[2024-09-18] MEDS: ASPIRIN 81 MG ENTERIC TABLET PO (09:19)
[2024-09-18] MEDS: HYDROcodone/acetaminophen (*CRX) 5-325 MG TABLET 1 TAB PO ×2 (09:19→14:36)
[2024-09-18] MEDS: LORATADINE 10 MG TABLET PO (09:20)
[2024-09-18] MEDS: FOLIC ACID 1 MG TABLET PO (09:20)
[2024-09-18] MEDS: FLUoxetine HCL 20 MG CAPSULE 60 MG PO (09:20)
[2024-09-18] MEDS: LOTEPREDNOL ETABONATE 0.2% OPH 5 ML SUSP 1 DROP EACH EYE ×2 (09:30→13:30)
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
[2024-09-18 14:00] VITALS: BP 103/62; PULSE 81; RESP 18; TEMP 36.8; O2SAT 96
== END 2024-09-18 15:35 | disposition home health service (06) | DRG 481 ==
LOC: ANHED 23:18 → ANH3MEDSUR 09-15 00:02
PROVIDERS: Nurse Practitioner Family; Orthopaedic Surgery; Admitting Provider Internal Medicine; Emergency Provider Physician Assistant; PCP Family Medicine; Visit Provider Internal Medicine
PROC: 0QS734Z Reposition Left Upper Femur with Internal Fixation Device, Percutaneous Approach (ICD-10-PCS; principal; 2024-09-16 14:00)
DX: S72.092A Other fracture of head and neck of left femur, initial encounter for closed fracture (principal); E87.1 Hypo-osmolality and hyponatremia; V18.2XXA Unspecified pedal cyclist injured in noncollision transport accident in nontraffic accident, initial encounter; M35.00 Sjogren syndrome, unspecified
CPT/HCPCS: 36415; 70450; 71045; 72125; 72192; 73502; 73590; 80053; 83735; 85025; 85610; 85730; 93005; 96374; 96375; 97110; 97116; 97161; 97165; 97530; 97535; 99199; 99285; A9270; C1713; C1769; G0378; J0690; J1171; J2003; J2004; J2250; J2270; J2405; J2704; J3010; J7030; J7120

== ENCOUNTER 2024-09-23 08:33 | Emergency (ER) | payer BC, SELFPAY ==
--- NOTE | ~2024-09-23 | CT_ITS ---
CTA chest PE abdomen pel Ordering provider: Jazz Chirinos PA-C History: . cp, sob, near syncope, recent surgery . Comparison: None. Technique: CT angiogram chest was performed following timed intravenous injection of contrast. Thin s lice axial images and reformatted coronal images were obtained. Three dimensional reformatted images of the chest were also obtained using a [employer] workstation. Also, CT of the abdomen and pelvis was pe rformed with IV contrast. . Automated exposure control and iterative reconstruction technique were e mployed. The dose-length product was 626.57 mGy-cm. 100 mL Omnipaque 350 was given IV. FINDINGS: CHEST: --PULMONARY ARTERIES: No pulmonary embolus. --VISUALIZED THORACIC INLET: Calcification in the left lobe of the thyroid with nodule. Ultrasound ev aluation advised. --MEDIASTINUM: Aorta/coronary arteries: The thoracic aorta is normal. Heart/other: The heart is not enlarged. Lymph nodes: No mediastinal or hilar adenopathy. --LUNGS: Dependent atelectatic changes. No pulmonary nodules or masses. No infiltrates or effusions. No pneumo thorax. --MUSCULOSKELETAL: Bones: Normal spine. Superficial soft tissues: The superficial soft tissues are normal. ABDOMEN/PELVIS: --MUSCULOSKELETAL: Superficial soft tissues: The superficial soft tissues are normal. Bones: Age appropriate degenerative changes of the spine. Left femoral neck postoperative changes. --UPPER ABDOMINAL ORGANS: Liver: Mild fat infiltration. Gallbladder: Normal. Spleen: Normal. Stomach/duodenum: Normal. Pancreas: Normal. Adrenals: Normal. Kidneys: Multiple tiny cysts in the left kidney. Tiny cyst in the right kidney lower and mid pole. --PELVIC ORGANS: The bladder is normal. No bladder stones. --BOWEL AND MESENTERY: Colon: No evidence of diverticulitis. Fecal material is loaded in the colon. Normal appendix. Small Bowel: Normal. No obstruction. Peritoneum/mesentery: No free air or free fluid. No mesenteric lymphadenopathy. --RETROPERITONEUM: Mild atheromatous disease of the abdominal aorta. No retroperitoneal lymphadenop athy. IMPRESSION: CHEST: 1. No pulmonary embolism. 2. No acute cardiopulmonary pathology. 3. Nodule in the left lobe of the thyroid with calcification. Ultrasound evaluation advised ABDOMEN/PELVIS: 1. No evidence of appendicitis, diverticulitis or intestinal obstruction. 2. Constipation. 3. Tiny bilateral renal cysts. 4. Fat infiltration of the liver. Reviewed, dictated and finalized at location A. IMPRESSION: CHEST: 1. No pulmonary embolism. 2. No acute cardiopulmonary pathology. 3. Nodule in the left lobe of the thyroid with calcification. Ultrasound evalu ation advised ABDOMEN/PELVIS: 1. No evidence of appendicitis, diverticulitis or intestinal obstruction. 2. Constipation. 3. Tiny bilateral renal cysts. 4. Fat infiltration of the liver.
--- NOTE | ~2024-09-23 | XR_ITS ---
XR chest 2V Ordering provider: Attila Mar MD History: 59 years Female with . weakness . Comparison: September 14, 2024 FINDINGS: MEDIASTINUM: The cardiac silhouette is not enlarged. LUNGS: No infiltrates, effusions or pneumothorax. OTHER: No free air under the diaphragm. IMPRESSION: No acute cardiopulmonary pathology. Reviewed, dictated and finalized at location A.
[2024-09-23 08:30] VITALS: BP 106/74; PULSE 66; RESP 18; O2SAT 100
--- NOTE | 2024-09-23 08:52 | ECG_ITS ---
Test Date: 2024-09-23 08:57:48 Measurements Intervals [place] Rate: 66 P: 35 ME: 157 QRS: 46 QRSD: 90 T: 37 QT: 428 QTc: 450 Interpretive Statements SINUS RHYTHM POSSIBLE LEFT ATRIAL ENLARGEMENT BORDERLINE ECG Compared to ECG 09/14/2024 22:48:47 No significant changes Electronically Signed On 09-23-2024 09:08:33 CDT by Fercho Howell D.O.
[2024-09-23 09:13] LABS: Basophils Absolute Auto 0.1 K/mm3 (0.0-0.1); Basophils Percent Auto 1.2 % (0.2-1.2); Eosinophils Absolute Auto 0.2 K/mm3 (0-0.3); Eosinophils Percent Auto 3.7 % (0-4.4); Hematocrit 43.1 % (37.0-47.0); Hemoglobin 13.6 g/dL (12.0-15.0); Immature Granulocyte Absolute 0.03 K/mm3 (0.00-0.031); Immature Granulocyte Percent A 0.7 % (0-0.5); Lymphocytes Absolute Auto 0.64 K/mm3 (0.9-3.2); Lymphocytes Percent Auto 14.8 % (18.3-44.2); Mean Corpuscular HGB Conc 31.6 g/dl (32-36); Mean Corpuscular Hemoglobin 29.3 pg (26-34); Mean Corpuscular Volume 92.9 fl (80-100); Monocytes Absolute Auto 0.5 K/mm3 (0.1-0.6); Monocytes Percent Auto 11.1 % (2.6-8.5); Neutrophils Percent Auto 68.5 % (45.5-73.1); Platelet Count Result 244 k/mm3 (150-375); Red Blood Count 4.64 M/mm3 (4.2-5.4); White Blood Count 4.3 K/mm3 (4.5-10.0)
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
[2024-09-23 09:23] LABS: Alanine Aminotransferase 52 U/L (6-35); Alkaline Phosphatase 76 U/L (38-126); Anion Gap 10 mmol/L (4-12); Aspartate Amino Transferase 56 U/L (14-36); Bilirubin,Total 0.4 mg/dL (0.2-1.3); Blood Urea Nitrogen 22 mg/dL (7-17); Calcium 9.6 mg/dL (8.4-10.2); Carbon Dioxide 18 mmol/L (22-30); Chloride 111 mmol/L (98-107); Estimated CRCL calculation 49 ml/min; Estimated Glomerular Filt Rate 49; Glucose 96 mg/dL (65-110); Potassium 4.1 mmol/L (3.4-5.0); Sodium 139 mmol/L (137-145); Total Protein 7.8 g/dL (6.3-8.2)
[2024-09-23] MEDS: SODIUM CHLORIDE 0.9% IV 1,000 ML 999 ML IV CONT ×2 (09:38→09:39)
[2024-09-23 09:41] VITALS: BP 98/73; PULSE 64; RESP 13; O2SAT 99
[2024-09-23 09:42] LABS: INR 1.1; Partial Thromboplastin Time 24.4 Seconds (22.3-36.8); Prothrombin Time 14.5 Seconds (11.1-14.7)
--- OUTSIDE RECORDS SUMMARY | 2024-09-23 09:42 | XMS_ITS | Data Portability ---
Author Organization [facility] SHAHIDAJulio Cesar [facility] Address [address] [place] [address] Assessment No assessment recorded. Plan of Treatment Reminders Order Date Submit Date Provider Last Modified By Organization Details Last Modified Time Details Appointments None recorded. 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 [facility] [address] [facility] ([facility]), [address] [place], [address], 0 18:24:05 Referral None recorded. Procedures None recorded. Surgeries None recorded. Imaging None recorded. Medication Orders None recorded. Patient TargetsNo targets recorded. 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 This test is only autho rized [...] or revok ed soone r. 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 This testi ng was perfo rmed in the [facility] [place] [place] [address] (CLIA Licen se #[id number] 5, CAP #[id number], AU-ID #[id number]). 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 Medical [...] SNOMED-CT Code Diagnosis ICD10 Code Diagnosis Note [id number] AGGIE Figueroa [address] [place] [address] 08/27/2019 15:08:48 09/01/2019 08:01:23 Suspected COVID-19 821039631 Z03.818 D/w pt the current pandemic of COVID-19 and call for social isolation in order to blunt the curve and minimize risk and spread. Encouraged patient and family to take restrictio ns seriously. They have verbalized understand ing of such. Viral syndrome [id number] B34.9 Health Concerns Section Related Observation LastModified by Organization Angelina mathis LastModified Time None Recorded Concern Status LastModified by Organization Details LastModified Time None Recorded Advance Directives Directive None Recorded Payers Insurance Date Sequence Insurance Name Policy Number Policy Robertson Covered Member ID Robertson Member ID Guarantor Name 08/27/2019 1 [id number] Shelia Tate [id number] Shelia Tate Notes Date Note Type [...] person. KENYETTA Bolivar NP Attn: Accounting,[address] [place], [address], [facility] 08/27/2019 15:16:18 OBGyn Episode No OBEpisode recorded.
--- OUTSIDE RECORDS SUMMARY | 2024-09-23 09:42 | XMS_ITS | Clinical Summary ---
Author Organization [facility] Address [address] [place] [address] Care Team Providers Care Sephora Product Consultant Name Role Phone Judit Ferrera MD Primary Care Provider + [phone] Allergies Active Allergy Reactions Criticality Noted Date [...] 06/01/2014 Overview (09/08/2024): Depression;Recorded Elsewhere: No Location: 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 Source: EHR Chronic: N Practice ID: [id number] Billable Time: 10:00:00 AM Encounters Date Type Department Care Team Description 09/08/2024 3:00 PM CDT Office Visit [facility] Rheumatology at [address], [place] [address] Deidra Braga MD Sjogren's syndrome with keratoconjunctivitis sicca (Primary Dx); Long-term use of high-risk medication 09/07/2024 Orders Only [facility] Rheumatology at [address] [place] [address] Deidra Braga MD 07/13/2024 Results Follow-Up [facility] Surgery [address] [place] [address] [address] [place] [address] Sabina Reynaga NP Screening Mammogram Bilateral W Dash 07/10/2024 3:21 PM CDT - 07/10/2024 11:59 PM CDT Hospital Encounter [facility] - Breast Imaging [address] [place] [address] Floor [address] [place] [address] History of breast cancer Discharge Disposition: Discharge to home or self care 07/10/2024 3:15 PM CDT Office Visit [facility] Surgery [address] [place] [address] [address] [place] [phone] Sabina Reynaga NP Ductal carcinoma in situ [...] on file 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 Gender Identity Not on file Sexual Orientation [...] - 09/08/2024 4:07 AM CDT Performed at: [address] [place] [id number] Computerized Machine Fabric Cutter: Raul Garcia PhD, Phone: [phone] Deidra Braga MD LAB BLOOD ORDERABLES Final [...] - 09/08/2024 4:07 AM CDT Performed at: [address] [place] [id number] Computerized Machine Fabric Cutter: Raul Garcia PhD, Phone: [phone] Specimen Comment: A courtesy copy of this report has been sent to [phone] Deidra Braga MD LAB BLOOD ORDERABLES Final [...] 2:07 AM CDT Performed at: 01 - [facility] [id number] Computerized Machine Fabric Cutter: Raul Garcia PhD, Phone: [phone] us Deidra Braga MD LAB BLOOD ORDERABLES [...] compared to prior imaging studies performed at [facility] on 06/13/2021, 06/19/2022 and 06/25/2023. There are [...] compared to prior imaging studies performed at [facility] on 06/13/2021, 06/19/2022 and 06/25/2023. There are scattered areas of fibroglandular density. There is no suspicious abnormality in either breast. Impression: There is no mammographic evidence of malignancy. Annual screening mammography is recommended. OVERALL FINAL ASSESSMENT: BI-RADS CATEGORY 1: Negative. Sabina Reynaga NP IMG MAMMO PROCEDURES Edite d Result - Final from Last [address] [place] [address] [place] [address] [employer] [place] Care Teams Sephora Product Consultant Relationship Specialty Start Date End Date Judit Ferrera MD [address] [place] [address] PCP - General Family Medicine 12/26/21
--- OUTSIDE RECORDS SUMMARY | 2024-09-23 09:42 | XMS_ITS | Clinical Summary ---
Author Organization [facility] Address [address] 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
--- OUTSIDE RECORDS SUMMARY | 2024-09-23 09:42 | XMS_ITS | Referral Summary ---
Author Organization [facility] Address [address] [place] [address] Care Team Providers Care Pyrotechnist Name Role Phone Judit Ferrera MD Primary Care Provider Encounters Date Type Department Care Team Description 09/08/2024 3:00 PM CDT Office Visit [facility] Rheumatology at [address] [phone] Deidra Braga MD Sjogren's syndrome with keratoconjunctivitis sicca (Primary Dx); Long-term use of high-risk medication 09/07/2024 Orders Only [facility] Rheumatology at [address], [place] [address] Deidra Braga MD 07/13/2024 Results Follow-Up [facility] Surgery [address] [place] [address] 8 [place] [phone] Sabina Reynaga NP Screening Mammogram Bilateral W Dash 07/10/2024 3:21 PM CDT - 07/10/2024 11:59 PM CDT Hospital Encounter [facility] - Breast Imaging [address] [place] [address] Floor [address] [place] [address] History of breast cancer Discharge Disposition: Discharge to home or self care 07/10/2024 3:15 PM CDT Office Visit [facility] Surgery [address] 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 Malaise and fatigue 02/01/2011 Overview (09/08/2024): Fatigue / Malaise;Recorded Elsewhere: No Location: [facility] Source: EHR Chronic: N Practice ID: [id number] [...] (12+ YRS) 01/27/2021 Sars-cov-2 Covid-19 Zaira, Ewa Levy/rbandan Paul.1 12/26/2023 ZOSTER LIVE 05/12/2018,03/04/2018 ZOSTER Recombinant [...] on file 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 Gender Identity Not on file Sexual Orientation [...] - 09/08/2024 4:07 AM CDT Performed at: [address] [place] [id number] Paraffin Plant Operator: Raul Garcia PhD, Phone: [phone] us Deidra Braga MD LAB BLOOD ORDERABLES Final Result [facility] - 01 * (ABNORMAL) CBC without differential (09/07/2024 9:00 AM CDT) Pathologist [facility] WBC 2.6(L) 3.4 - 10.8 x10E3/uL [...] 09/08/2024 4:07 AM CDT Performed at: - [address] [id number] Paraffin Plant Operator: Raul Garcia PhD, Phone: [phone] Specimen Comment: A courtesy copy of this report has been sent to [phone] us Deidra Braga MD LAB BLOOD ORDERABLES [...] 2:07 AM CDT Performed at: 01 - [address] [id number] Paraffin Plant Operator: Raul Garcia PhD, Phone: [phone] us Deidra Braga MD LAB BLOOD ORDERABLES Final Result [facility] - 01 * Screening Mammogram Bilateral [...] compared to prior imaging studies performed at [facility] on 06/13/2021, 06/19/2022 and 06/25/2023. There are [...] compared to prior imaging studies performed at [facility] on 06/13/2021, 06/19/2022 and 06/25/2023. There are scattered areas of fibroglandular density. There is no suspicious abnormality in either breast. Impression: There is no mammographic evidence of malignancy. Annual screening mammography is recommended. OVERALL FINAL ASSESSMENT: BI-RADS CATEGORY 1: Negative. Sabina Reynaga NP IMG MAMMO PROCEDURES Edite d Result - Final from Last 3 [place] [address] [employer] [place] [employer] [place] [employer] [place] Care Teams Pyrotechnist Relationship Specialty Start Date End Date Judit Ferrera MD [address] [place] [address] PCP - General Family Medicine 12/26/21
[2024-09-23 09:48] LABS: Troponin I < 0.012 ng/mL (0.000-0.034)
[2024-09-23 10:18] LABS: Creatine Kinase 62 U/L (30-135); Magnesium 2.3 mg/dL (1.6-2.3)
[2024-09-23 10:33] LABS: Add Urine Microscopic? YES; Appearance Urine Cloudy (Clear); Bacteria Urine None Seen /hpf; Bilirubin Urine Negative (Negative); Blood Urine Negative (Negative); Color Urine Yellow (Yellow); Glucose Urine UA Negative (Negative); Ketones Urine Negative (Negative); Leukocyte Esterase Ur Negative LEU/UL (Negative); Nitrate Urine Negative (Negative); Non Pathogenic Casts 0-2; Protein Urine Negative (Negative); RBC Urine 0-2 /hpf (0-2); Specific Grav Ur 1.018 (1.001-1.035); Squamous Epithelial Cell Urine None Seen /hpf (Few); Urobilinogen Urine 0.2 mg/dL (<2.0); WBC Urine 0-5 /hpf (0-3); pH Urine 7.5 (5.0-9.0)
[2024-09-23 11:42] VITALS: BP 107/66; PULSE 70; RESP 15; O2SAT 97
--- NOTE | 2024-09-23 11:51 | ECG_ITS ---
Test Date: 2024-09-23 12:10:16 Measurements Intervals [place] Rate: 68 P: 42 WV: 151 QRS: 44 QRSD: 89 T: 29 QT: 435 QTc: 464 Interpretive Statements SINUS RHYTHM NORMAL ECG Compared to ECG 09/23/2024 08:57:48 No significant changes Electronically Signed On 09-23-2024 13:01:47 CDT by Fercho Howell D.O.
[2024-09-23 12:34] VITALS: BP 113/75; PULSE 67; RESP 13; O2SAT 98
[2024-09-23 12:49] LABS: Troponin I < 0.012 ng/mL (0.000-0.034)
[2024-09-23 13:58] VITALS: BP 115/75; PULSE 65; RESP 18; O2SAT 96
== END 2024-09-23 14:34 | disposition home or self-care (01) ==
PROVIDERS: Emergency Medicine; Emergency Provider Physician Assistant; PCP Family Medicine
DX: R53.1 Weakness (principal); E86.0 Dehydration; R55 Syncope and collapse; Z98.890 Other specified postprocedural states; Z98.42 Cataract extraction status, left eye; K58.9 Irritable bowel syndrome, unspecified; F51.04 Psychophysiologic insomnia; F41.9 Anxiety disorder, unspecified; F32.A Depression, unspecified; M35.00 Sjogren syndrome, unspecified; K76.0 Fatty (change of) liver, not elsewhere classified; K59.00 Constipation, unspecified; E04.1 Nontoxic single thyroid nodule; R94.31 Abnormal electrocardiogram [ECG] [EKG]
CPT/HCPCS: 36415; 71046; 71275; 74177; 80053; 81001; 82550; 83735; 84484; 85025; 85610; 85730; 93005; 96360; 99284; J7030; Q9967

== ENCOUNTER 2024-10-08 10:24 | Emergency (ER) | payer BC, SELFPAY ==
--- NOTE | ~2024-10-08 | US_ITS ---
EXAMINATION: US venous doppler [facility] DATE: 10/08/2024 12:15 INDICATION: Left lower limb pain and tingling post recent surgery TECHNIQUE: Grayscale ultrasound images without and with compression and Doppler ultrasound images of the left lower extremity veins were obtained. COMPARISON: None. FINDINGS: The visualized portions of left common femoral vein, profunda (deep) femoral vein, femoral vein, popl iteal vein, peroneal veins, posterior tibial veins, gastrocnemius vein and greater saphenous vein out flow are patent. IMPRESSION: 1. No deep venous thrombosis in the left lower limb. Reviewed, dictated and finalized at location B.
--- NOTE | ~2024-10-08 | XR_ITS ---
EXAMINATION: XR hip LT min 3V w AP pelvis DATE: 10/08/2024 12:22 INDICATION: Left leg pain post recent surgery at the left hip TECHNIQUE: Anteroposterior view of the pelvis and anteroposterior and frog-leg lateral views of the l eft hip were obtained. COMPARISON: CT and radiographs dated 09/24/2024 FINDINGS: Subcapital fracture of the post left femur which is fixed with 3 cannulated lag screws. Alignment rem ains near-anatomic. No new fractures identified. Mild to moderate lower lumbar spondylosis. Minimal t o mild bilateral hip and sacroiliac osteoarthritis. IMPRESSION: 1. Near-anatomic alignment of a recent subcapital fracture of the proximal femur with lag screw fixat ion. No acute osseous abnormality. Reviewed, dictated and finalized at location B. IMPRESSION: 1. Near-anatomic alignment of a recent subcapital fracture of the proximal femu r with lag screw fixation. No acute osseous abnormality.
[2024-10-08 10:27] VITALS: BP 130/84; PULSE 81; RESP 15; TEMP 36.4; O2SAT 98
--- OUTSIDE RECORDS SUMMARY | 2024-10-08 10:28 | XMS_ITS | Clinical Summary ---
Author Organization [facility] Address [address] 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
--- OUTSIDE RECORDS SUMMARY | 2024-10-08 10:28 | XMS_ITS | Referral Summary ---
Author Organization [facility] Address [address] [place] [id number] Care Team Providers Care Oyster Fisherman Name Role Phone Judit Ferrera MD Primary Care Provider [phone] Encounters Date Type Department Care Team Description 09/08/2024 3:00 PM CDT Office Visit [facility] Rheumatology at [address] [phone] Deidra Braga MD Sjogren's syndrome with keratoconjunctivitis sicca (Primary Dx); Long-term use of high-risk medication 09/07/[address] [facility] Rheumatology at [address] [address] Deidra Braga MD 07/13/2024 Results Follow-Up [facility] Surgery [address] [place] [address] [address] [place] [phone] Sabina Reynaga NP Screening Mammogram Bilateral W Dash 07/10/2024 3:21 PM CDT - 07/10/2024 11:59 PM CDT Hospital Encounter [facility] [place] - Breast Imaging [address] [place] [address] Floor [address] [place] [address] History of breast cancer Discharge Disposition: Discharge to home or self care 07/10/2024 3:15 PM CDT Office Visit [facility] Surgery [address] [facility] [address] [place] [phone] Sabina Reynaga NP Ductal carcinoma in situ [...] by oral route every day 30 2 5 Active loteprednol (ALREX) 0.2 % drops,suspensio n instill 1 drop by ophthalmic route every day into affected eye(s) 0 3 Active fexofenadine (MINGO) 180 mg tablet Take 1 tablet (180 mg total) by mouth daily Active FLUoxetine (PROzac) 20 mg capsule TAKE 3 CAPSULES BY MOUTH DAILY IN THE MORNING. 3 Active folic acid (FOLVITE) 1 mg tablet Take 1 tablet (1,000 mcg total) by mouth daily 90 tablet 5 3 Active aspirin 325 mg Take 2 tablets (650 mg total) by mouth 2 (two) times a day Active erythromycin (ILOTYCIN) ophthalmic ointment Place ointment on right eyelid incisions 3 times a day[address] Only place inside the eye for irritation. 3.5 g 3 4 Active Additional Information Patient not taking.Reported on 09/08/2024 traZODone (DESYREL) 50 mg tablet TAKE 1 TABLET BY MOUTH NIGHTLY 90 tablet 3 5 Active hydroxychloroqu ine (PLAQUENIL) 200 mg tablet TAKE 1 TABLET (200 MG TOTAL) BY MOUTH 2 TIMES A DAY. 180 tablet 3 5 Active cetirizine HCl (ZYRTEC ORAL) Active cevimeline (EVOXAC) 30 mg capsule TAKE 1 CAPSULE BY MOUTH 3 TIMES A DAY. 270 capsule 5 Active methotrexate 2.5 mg tablet TAKE 4 TABLETS BY MOUTH EVERY 7 DAYS. 48 tablet 2 5 Active Active Problems Problem Noted Date Diagnosed Date History of breast cancer 04/28/2018 Screening status 01/24/2016 Overview (07/13/2016): Screening cholesterol level Malignant neoplasm of breast 01/20/2015 Overview (07/13/2016): Breast cancer Microcytic anemia 01/18/2015 Overview (07/13/2016): Microcytic anemia Depressive disorder 06/01/2014 Overview (09/08/2024): Depression;Recorded Elsewhere: No Location: [facility] Source: EHR Chronic: N Practice ID: [id number] Billable Time: 09:30:00 AM Arthritis 08/22/2013 Overview (07/13/2016): Inflammatory arthritis Fibrositis 08/15/2012 Overview (07/13/2016): Fibromyalgia Sjogren's syndrome 08/15/2012 Overview (07/14/2016): Sjogrens syndrome 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 Malaise and fatigue 02/01/2011 Overview (09/08/2024): Fatigue / Malaise;Recorded Elsewhere: No Location: [facility] Source: EHR Chronic: N Practice ID: [...] Vaccination (12+ YRS) 01/27/2021 Sars-cov-2 Covid-19 Mrna, Kaushik dow, Original/brandan Ba.1 12/26/2023 ZOSTER LIVE 05/12/2018,03/04/2018 ZOSTER Recombinant 05/12/2018,03/04/2018 [...] on file 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 Gender Identity Not on file Sexual Orientation [...] Erythrocyte sedimentation rate (09/07/2024 9:00 AM CDT) [facility] Erythrocyte sedimentation rate 17 0 - 40 mm/hr [facility] - 01 09/07/2024 9:00 AM CDT 09/07/2024 Narrative [facility] - 09/08/2024 4:07 AM CDT Performed at: [address] [place] [id number] Drinking Water Technician: Raul Garcia PhD, Phone: [phone] Deidra Braga MD LAB BLOOD ORDERABLES Final Result [facility] - 01 * (ABNORMAL) CBC without differential (09/07/2024 9:00 AM CDT) [facility] WBC 2.6(L) 3.4 - 10.8 x10E3/uL [facility] [...] - 09/08/2024 4:07 AM CDT Performed at: [address] [id number] Drinking Water Technician: Raul Garcia PhD, Phone: [phone] Specimen Comment: A courtesy copy of this report has been sent to [phone] Deidra Braga MD LAB BLOOD ORDERABLES Final Result [facility] - 01 * Comprehensive metabolic panel (09/07/2024 9:00 AM CDT) Pathologist [facility] Glucose 89 70 - 99 mg/dL [facility] [...] 09/08/2024 2:07 AM CDT Performed at: [address] [facility] [id number] [place], [place] [id number] Drinking Water Technician: Raul Garcia PhD, Phone: [phone] Deidra Braga MD LAB BLOOD ORDERABLES Final Result [facility] - 01 * Screening Mammogram Bilateral W [...] compared to prior imaging studies performed at [facility] on 06/13/2021, 06/19/2022 and 06/25/2023. There are [...] compared to prior imaging studies performed at [facility] on 06/13/2021, 06/19/2022 and 06/25/2023. There are scattered areas of fibroglandular density. There is no suspicious abnormality in either breast. Impression: There is no mammographic evidence of malignancy. Annual screening mammography is recommended. OVERALL FINAL ASSESSMENT: BI-RADS CATEGORY 1: Negative. Sabina Reynaga NP IMG MAMMO PROCEDURES Edite d Result - Final from Last 3 Months [employer] [facility] Care Teams Oyster Fisherman Relationship Specialty Start Date End Date Judit Ferrera MD [address] [place], [place] [id number] PCP - General Family Medicine 12/26/21
--- OUTSIDE RECORDS SUMMARY | 2024-10-08 10:28 | XMS_ITS | Data Portability ---
Author Organization [facility] Address [address] [place] [address] [place] [address] Care Team Providers Care Assembly Department Supervisor Name Role Phone JOAQUINA CHONG Primary [...] a year unless there are new symptoms. [email or web address] Not available 09/08/2024 09:26:12 Plan of Treatment Reminders Order Date Submit Date Provider Last Modified By Organization Details Last Modified Time Details Appointments None recorded. Lab CMP, serum or plasma 2024 025 [place], [address], [place], [address], 5 04:02:08 CBC w/ auto diff 2024 025 [place] [facility], [address], [place], [address], 5 04:02:08 lipid panel, serum 2024 025 [place] [facility], [address], [place], [address], 5 04:02:08 TSH, ultra-sens itive, serum 2024 025 [place] [facility], [address], [place], [address], 5 04:02:08 HbA1c (hemoglobi n A1c), blood 2024 025 [place] [facility], [address], [place], [address], 5 06:39:33 pap, IG + HR HPV - HPV regardless but if HPV is positive need subtyping 16,18/45 2024 025 [facility] (Lab), [address], [place], [address], 5 11:06:08 lipid panel, blood 2021 022 [facility] (Lab), [address], [place], [address], 2 03:42:51 CMP, serum or plasma 2021 022 [facility] (Lab), [address], [place], [address], 2 03:42:51 CBC w/ auto diff 2021 022 [facility] (Lab), [address], [place], [address], 2 03:42:50 vitamin D, 25-hydroxy , total, serum 2021 [facility] (Lab), [address], [place], [address], 2 03:42:52 HbA1c (hemoglobi n A1c), blood 2021 022 [facility] (Lab), [address], [place], [address], 2 03:42:53 TSH, serum or plasma 2021 [facility] ([facility]), [address], [place], [address], 2 03:42:51 lh + FSH, serum 2021 022 [facility] (Lab), [address], [place], [address], 2 03:42:52 estradiol, serum 2021 [facility] ([facility]), [address], [place], [address], 2 03:42:52 prolactin, serum 2021 022 [facility] (Lab), [address], [place], [address], 2 03:42:53 Referral primary care provider referral 2020 021 [place] Not available 17:19:06 Procedures None recorded. Surgeries None recorded. Imaging MAMMO, screening, bilateral 2022 023 [facility], [address] [place] [address], [address], 3 05:01:14 Medication Orders fluoxetine 20 mg capsule 2024 025 [place] [facility], [address] [facility], [place], [address], 5 11:46:25 fluoxetine 20 mg capsule 2023 024 [place] [address], [address] [facility], [place], [address], 4 11:20:43 fluoxetine 20 mg capsule 2022 023 [place] [address] [facility], [address] [facility], [place], [address], 3 11:10:16 Prozac 20 mg capsule 2020 021 [place] [address] [facility], [address] [facility], [place], [address], 1 14:19:42 Patient TargetsNo targets recorded. Patient InstructionsNo instructions recorded. Reason for Referral Primary Care Provider Referr al for Adult health examination Referring Physician: Claudia Baker, [employer]AGE [employer]LECT[employer]ICIAN, Encounter Date: 07/13/2020 Results Created Date Observation Date Name Description Value Unit Range Abnormal Flag Note LastModifiedBy Organization Detail LastModifiedTime 07/14/19 21 07/13/2020 pap, IG Pap test SEE RESULT S BELOW CASE REPOR T: Cytol ogy Gynec ologi betsy Repor t Case: [id number] Autho heaven woody Provi ester: Adiel Hairston Colle cted: 07/13 1408 CLASSIFICATION COUNSELOR Order ing Locat ion: [place] Patho logy [...] of Neopl dennys (if appli cable ): Other Histo ry: [...] clini julio c mosher nted. Not Available [facility] (Lab) [address], [place], [address], 07/15/2020 15:37:28 07/18/19 22 07/17/2021 CBC W/DIF F WBC 3.5 10'3/ uL 3.6-10 .2 low Not Available [facility] (Lab) [address], [place], [address], 07/18/2021 03:42:50 07/18/19 22 07/17/2021 CBC W/DIF F RBC 4.40 10'6/ uL (based on docume nted legal sex) 4.10-5 .30 Not Available [facility] (Lab) [address], [place], [address], 07/18/2021 03:42:50 07/18/19 22 07/17/2021 CBC W/DIF F HGB 13.1 g/dL (based on docume nted legal sex) 11.9-1 5.8 Not Available [facility] (Lab) [address], [place], [address], 07/18/2021 03:42:50 07/18/19 22 07/17/2021 CBC W/DIF F HCT 42.1 % (based on docume nted legal sex) 37.4-4 8.3 Not Available [facility] (Lab) [address], [place], [address], 07/18/2021 03:42:50 07/18/19 22 07/17/2021 CBC W/DIF F MCV 97.0 fL 82.0-9 9.0 Not Available [facility] (Lab) [address], [place], [address], 07/18/2021 03:42:50 07/18/19 22 07/17/2021 CBC W/DIF F MCH 30.0 pg 27.0-3 3.0 Not Available [facility] (Lab) [address], [place], [address], 07/18/2021 03:42:50 07/18/19 22 07/17/2021 CBC W/DIF F MCHC 31.0 g/dL 32.0-3 6.0 low Not Available [facility] (Lab) [address], [place], [address], 07/18/2021 03:42:50 07/18/19 22 07/17/2021 CBC W/DIF F RDW 15.0 % 11.0-1 5.0 Not Available [facility] (Lab) [address], [place], [address], 07/18/2021 03:42:50 07/18/19 22 07/17/2021 CBC W/DIF F plt 216 10'3/ uL 150-45 0 Not Available [facility] (Lab) [address], [place], [address], 07/18/2021 03:42:50 07/18/19 22 07/17/2021 CBC W/DIF F MPV 10.3 fL 9.8-12 .7 Not Available [facility] (Lab) [address], [place], [address], 07/18/2021 03:42:50 07/18/19 22 07/17/2021 CBC W/DIF F NRBC's 0.00 % 0 Not Available [facility] (Lab) [address], [place], [address], 07/18/2021 03:42:50 07/18/19 22 07/17/2021 CBC W/DIF F absolute NRBCs 0.0 10'3/ uL 0 Not Available [facility] (Lab) [address], [place], [address], 07/18/2021 03:42:50 07/18/19 22 07/17/2021 CBC W/DIF F neutrophils 53.0 % 37.0-7 2.0 Not Available [facility] (Lab) [address], [place], [address], 07/18/2021 03:42:50 07/18/19 22 07/17/2021 CBC W/DIF F lymphocytes 24.0 % 16.0-4 8.0 Not Available [facility] (Lab) [address], [place], [address], 07/18/2021 03:42:50 07/18/19 22 07/17/2021 CBC W/DIF F monocytes 18.0 % 4.0-14 .0 high Not Available [facility] (Lab) [address], [place], [address], 07/18/2021 03:42:50 07/18/19 22 07/17/2021 CBC W/DIF F eosinophils 3.0 % 0.0-9. 0 Not Available [facility] (Lab) [address], [place], [address], 07/18/2021 03:42:50 07/18/19 22 07/17/2021 CBC W/DIF F basophils 1.0 % 0.0-2. 0 Not Available [facility] (Lab) [address], [place], [address], 07/18/2021 03:42:50 07/18/19 22 07/17/2021 CBC W/DIF F immature granulocytes 1.0 % no define d refere nce range Not Available [facility] (Lab) [address] [place], [address], 07/18/2021 03:42:50 07/18/19 22 07/17/2021 CBC W/DIF F absolute neutrophils 1.8 10'3/ uL 1.1-6. 0 Not Available [facility] (Lab) [address] [place], [address], 07/18/2021 03:42:50 07/18/19 22 07/17/2021 CBC W/DIF F absolute lymphocytes 0.8 10'3/ uL 0.7-3. 4 Not Available [facility] (Lab) [address], [place], [address], 07/18/2021 03:42:50 07/18/19 22 07/17/2021 CBC W/DIF F absolute monocytes 0.6 10'3/ uL 0.3-1. 0 Not Available [facility] (Lab) [address], [place], [address], 07/18/2021 03:42:50 07/18/19 22 07/17/2021 CBC W/DIF F absolute eosinophils 0.1 10'3/ uL 0.0-0. 6 Not Available [facility] (Lab) [address], [place], [address], 07/18/2021 03:42:50 07/18/19 22 07/17/2021 CBC W/DIF F absolute basophils 0.0 10'3/ uL 0.0-0. 1 Not Available [facility] (Lab) [address], [place], [address], 07/18/2021 03:42:50 07/18/19 22 07/17/2021 CBC W/DIF [...] resul ts are expec francisca. Not Available [facility] (Lab) [address], [place], [address], 07/18/2021 03:42:50 07/18/19 22 07/17/2021 LIPID PANEL ,AMA (LDL- CALC) total cholesterol 155 mg/dL 0-199 Not Available [facility] (Lab) [address], [place], [address], 07/18/2021 03:42:51 07/18/19 22 07/17/2021 LIPID PANEL ,AMA (LDL- CALC) triglyceride s 121 mg/dL 0.00-1 50.00 NCEP Refer ence Value s for Trigl yceri napoleon: Annelise l: <150 mg/dL Borde rline High: 150 - 199 mg/dL High: 200 - 499 mg/dL Very High: >/= 500 mg/dL Not Available [facility] (Lab) [address], [place], [address], 07/18/2021 03:42:51 07/18/19 22 07/17/2021 LIPID PANEL ,AMA (LDL- CALC) HDL cholesterol 54 mg/dL >40 Not Available [facility] (Lab) [address], [place], [address], 07/18/2021 03:42:51 07/18/19 22 07/17/2021 LIPID PANEL [...] mg/dL , HDL <40 mg/dL Not Available [facility] (Lab) [address] [place], [address], 07/18/2021 03:42:51 07/18/1907/17/2021 LIPID PANEL ,AMA (LDL- CALC) non-HDL cholesterol 101 mg/dL no refere nce range A reaso nable goal for non-H DL aurea stero l is one that is 30 mg/dL highe r than the LDL aurea stero l goal. Not Available [facility] (Lab) [address], [place], [address], 07/18/2021 03:42:51 07/18/19 22 07/17/2021 LIPID PANEL ,AMA (LDL- CALC) chol/HDL ratio 2.9 . 0.0-5. 0 Not Available [facility] (Lab) [address], [place], [address], 07/18/2021 03:42:51 07/18/19 22 07/17/2021 CMP(C OMPRE HENSI VE METAB OLIC PANEL ) sodium 140 mmol/ L 133-14 6 Not Available [facility] (Lab) [address], [place], [address], 07/18/2021 03:42:51 07/18/19 22 07/17/2021 CMP(C OMPRE HENSI VE METAB OLIC PANEL ) potassium 3.8 mmol/ L 3.5-5. 1 Not Available [facility] (Lab) [address], [place], [address], 07/18/2021 03:42:51 07/18/19 22 07/17/2021 CMP(C OMPRE HENSI VE METAB OLIC PANEL ) chloride 106 mmol/ L 98-107 Not Available [facility] (Lab) [address], [place], [address], 07/18/2021 03:42:51 07/18/19 22 07/17/2021 CMP(C OMPRE HENSI VE METAB OLIC PANEL ) carbon dioxide 27 mmol/ L 21-31 Not Available [facility] (Lab) [address] [place], [address], 07/18/2021 03:42:51 07/18/19 22 07/17/2021 CMP(C OMPRE HENSI VE METAB OLIC PANEL ) anion gap 7 mmol/ L 4-13 Not Available [facility] (Lab) [address], [place], [address], 07/18/2021 03:42:51 07/18/19 22 07/17/2021 CMP(C OMPRE HENSI VE METAB OLIC PANEL ) blood urea nitrogen 16 mg/dL 7-25 Not Available [facility] (Lab) [address], [place], [address], 07/18/2021 03:42:51 07/18/19 22 07/17/2021 CMP(C OMPRE HENSI VE METAB OLIC PANEL ) creatinine 0.97 mg/dL 0.60-1 .30 Not Available [facility] (Lab) [address], [place], [address], 07/18/2021 03:42:51 07/18/19 22 07/17/2021 CMP(C OMPRE HENSI VE METAB OLIC PANEL ) egfrcr (CKD-epi 2020) 69 mL/mi n/1.7 3_m2 >=60 Not Available [facility] (Lab) [address], [place], [address], 07/18/2021 03:42:51 07/18/19 22 07/17/2021 CMP(C OMPRE HENSI VE METAB OLIC PANEL ) calcium 9.5 mg/dL 8.3-10 .5 Not Available [facility] (Lab) [address], [place], [address], 07/18/2021 03:42:51 07/18/19 22 07/17/2021 CMP(C OMPRE HENSI VE METAB OLIC PANEL ) glucose 76 mg/dL 70-100 Not Available [facility] (Lab) [address], [place], [address], 07/18/2021 03:42:51 07/18/19 22 07/17/2021 CMP(C OMPRE HENSI VE METAB OLIC PANEL ) protein, total 7.0 g/dL 6.4-8. 3 Not Available [facility] (Lab) [address], [place], [address], 07/18/2021 03:42:51 04/11/20 22 07/17/2021 CMP(C OMPRE HENSI VE METAB OLIC PANEL ) albumin 4.0 g/dL 3.5-5. 0 Not Available [facility] (Lab) [address], [place], [address], 07/18/2021 03:42:51 07/18/19 22 07/17/2021 CMP(C OMPRE HENSI VE METAB OLIC PANEL ) ALT 16 units /L 9-43 Not Available [facility] (Lab) [address], [place], [address], 07/18/2021 03:42:51 07/18/19 22 07/17/2021 CMP(C OMPRE HENSI VE METAB OLIC PANEL ) alkaline phosphatase 65 units /L 34-104 Not Available [facility] (Lab) [address], [place], [address], 07/18/2021 03:42:51 07/18/19 22 07/17/2021 CMP(C OMPRE HENSI VE METAB OLIC PANEL ) AST 22 units /L 13-39 Not Available [facility] (Lab) [address], [place], [address], 07/18/2021 03:42:51 07/18/19 22 07/17/2021 CMP(C OMPRE HENSI VE METAB OLIC PANEL ) bilirubin, total 0.5 mg/dL 0.2-1. 2 Not Available [facility] (Lab) [address], [place], [address], 07/18/2021 03:42:51 07/18/19 22 07/17/2021 TSH, REFLE X FREE T4 TSH 1.18 uIU/m L 0.30-5 .33 Not Available [facility] (Lab) [address] [place], [address], 07/18/2021 03:42:51 07/18/19 22 07/17/2021 VITAM IN D, 25-OH (TOTA L D2/D3 ) vitamin D, 25-hydroxy, total 31.0 NG/mL 30-80 NOTE: Defic iency : <20 ng/mL Insuf ficie ncy: 20-29 ng/mL Optim um Level : 30-80 ng/mL Possi ble Toxic ity: >80 ng/mL Most patie nts with toxic ity have level s >150 ng/mL . Not Available [facility] (Lab) [address], [place], [address], 07/18/2021 03:42:52 07/18/19 22 07/17/2021 ESTRA DIOL estradiol 57.7 pg/mL This assay was perfo rmed using [employer] n reage nts and test kits. Value s obtai kailey with other assay metho ds or kits canno t be used inter [facility] . Femal e Estra diol Range s: Folli cular phase 12.4- 233 pg/mL Ovula tion phase 41.0- 398 pg/mL Lutea l phase 22.3- 341 pg/mL Postm enopa usal< 5-138 pg/mL Healt hy Pregn ant Women 1st Trime ster1 54-32 43 pg/mL 2nd Trime ster1 561-2 1280 pg/mL 3rd Trime ster8 525-> 51777 pg/mL Not Available [facility] (Lab) [address], [place], [address], 07/18/2021 03:42:52 07/18/19 22 07/17/2021 FSH / LH FSH 69.8 mIU/m L This assay was perfo rmed using [employer] reage nts and test kits. Value s obtai kailey with other assay metho ds or kits canno t be used inter [facility] . Femal es Folli cular : 3.5-1 2.5 mIU/m L Ovula tion: 4.7-2 1.5 mIU/m L Lutea l: 1.7-7 .7 mIU/m L Postm enopa use: 25.8- 134.8 mIU/m L Not Available [facility] (Lab) [address], [place], [address], 07/18/2021 03:42:52 07/18/19 22 07/17/2021 FSH / LH LH 46.6 mIU/m L This assay was perfo rmed using [employer] reage nts and test kits. Value s obtai kailey with other assay metho ds or kits canno t be used inter [facility] . Femal es Mid-F ollic ular: 2.4-1 2.6 mIU/m L Mid-C ycle: 14.0- 95.6 mIU/m L Mid-L uteal : 1.0-1 1.4 mIU/m L Postm enopa use: 7.7-5 8.5 mIU/m L Not Available [facility] (Lab) [address], [place], [address], 07/18/2021 03:42:52 07/18/19 22 07/17/2021 PROLA CTIN prolactin, total 13.90 NG/mL 4.79-2 3.30 This assay was perfo rmed using [employer] reage nts and test kits. Value s obtai kailey with other assay metho ds or kits canno t be used inter [facility] . Not Available [facility] (Lab) [address] [place], [address], 07/18/2021 03:42:53 07/18/1907/17/2021 HEMOG LOBIN A1C hemoglobin [...] frances <7.0% Goal of thera py >8.0% Actio n sugge sted Not Available [facility] (Lab) [address], [place], [address], 07/18/2021 03:42:53 07/18/19 22 07/17/2021 IMAGE GUIDE D PAP AND HPV REGAR DLESS image guided Pap, HPV regardless of Pap result SEE RESULT S BELOW CASE REPOR T: Cytol ogy Gynec ologi betsy Repor t Case: [id number] Autho heaven annalise Provi ester: Gamal walker , Nathaniel Hough cted: 07/17 1339 CLASSIFICATION COUNSELOR Order ing Locat ion: [place] Patho logy Recei linda: 07/18 0213 First Hevaen n: Tracie Gustafson , CT Speci men: [...] clini julio c mosher nted. Not Available [facility] (Lab) [address], [place], [address], 07/24/2021 12:11:15 07/20/19 23 07/19/2022 IMAGE GUIDE D PAP AND HPV REGAR DLESS image guided Pap, HPV regardless of Pap result SEE RESULT S BELOW CASE REPOR T: Cytol ogy Gynec ologi betsy Repor t Case: [id number] Autho heaven woody Provi ester: Adiel Hairston Colle cted: 07/19 1343 CLASSIFICATION COUNSELOR Order ing Locat ion: [place] Patho [place]y Recei linda: 07/20 0108 First Scree n: Strut z, Willi am, CT Speci men: Scree jaqueline Pap - Image d, Cervi x STATE MENT OF ADEQU ACY: Satis facto ry for evalu ation Trans forma tion zone compo nent prese nt FINAL DIAGN OSIS: Negat matthew for Intra epith elial Lesio n or Abdulaziz malhotra (NIL) . Elect carl [...] clini julio c mosher nted. Not Available [facility] (Lab) [address], [place], [address], 07/23/2022 08:54:46 07/23/19 24 07/23/2023 IMAGE GUIDE D PAP AND HPV REGAR DLESS image guided Pap, HPV regardless of Pap result SEE RESULT S BELOW CASE REPOR T: Cytol ogy Gynec ologi betsy Repor t Case: [id number] Autho heaven annalise Provi ester: Adiel Hairston Colle cted: 07/22 1540 CLASSIFICATION COUNSELOR Order ing Locat ion: [place] Patho logy Recei linda: 07/23 0147 First Scree n: Judit Hillman, CT Speci men: Scree jaqueline Pap - Image d, Cervi x STATE MENT OF ADEQU ACY: Satis facto ry for evalu ation Trans forma tion zone compo nent prese nt FINAL DIAGN OSIS: Negat matthew for Intra epith elial Lesflorentin n or Abdulaziz malhotra (NIL) . Atrop hy [...] clini julio c mosher nted. Not Available [facility] (Lab) [address], [place], [address], 07/25/2023 18:51:02 09/09/19 25 09/08/2024 IMAGE GUIDE D PAP AND HPV REGAR DLESS image guided Pap, HPV regardless of Pap result SEE RESULT S BELOW CASE REPOR T: Cytol ogy Gynec ologi betsy Repor t Case: [id number] Autho heaven woody Provi ester: Amairani renee, Odette , ANP, PONY CYLINDER PRESS OPERATOR Colle cted: 09/08 1006 Order ing Locat ion: [place] Patho logy Recei linda: 09/09 0734 First Scree n: Phil an, Mei Rescr een: Juanita ni, Franky ed, CT Speci men: Scree jaqueline Pap - Image d, Cervi x STATE MENT OF ADEQU ACY: UNSAT ISFAC TORY SPECI MEN ----- ----- ----- ----- ----- ----- ----- ----- ----- ----- ----- ----- ----- ----- ----- ----- ----- ---- FINAL DIAGN OSIS: Unsat isfac tory for evalu ation . Inade quate squam ous epith elial compo nent for diagn osis. Elect carl arita by Mildred Cobian, CT for Juanita watts, Franky ed, CT on 025 at 1001 CDT [...] Neopl dennys (if appli cable ): Signi manuel t Clini betsy Findi ngs: Other Histo ry: Hormo vern (if appli cable ): Not Available [facility] (Lab) [address], [place], [address], 09/10/2024 11:06:08 06/21/19 23 06/19/2022 MAMMO , diagn ostic , bilat eral No observ ation record ed. [facility] [address] [place], [address], 08/08/2022 14:05:08 07/14/19 25 07/10/2024 imagi ng/di agnos tic resul t No observ ation record ed. [address], [address], 07/24/2024 11:42:21 07/14/1907/10/2024 imagi ng/di agnos tic resul t No observ ation record ed. [address], [address], 07/24/2024 11:42:21 Result Notes None recorded. Problems Name Problem SNOMED Code Status Onset Date Resolution Date Notes Provider Name and Address Organization Details Recorded Time Screenin g for malignan t neoplasm of rectum Completed 201507/17/2021 Encounter for screening for malignant neoplasm of rectum;Pr actice ID: [id number] Rachel sommers [facility] 2 09:39:[address] Concept Completed 201607/17/2021 Encntr for general adult medical exam w/o abnormal findings; Practice ID: [id number] Rachel sommers [facility] 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 2 09:39:50 Finding of menstrua l bleeding Completed 201707/17/2021 Excessive and frequent menstruat ion with regular cycle;[facility]ra ctice ID: [id number] [facility] 09:[facility]:50 Pregnanc y test negative [id number] Completed 201707/17/2021 Encounter for test, result negative; Practice ID: [id number] Rachel sommers [facility] 2 09:39:50 Finding of pattern of menstrua l cycle Completed 201707/17/2021 Other specified irregular menstruat ion;[facility] ice ID: [id number] [facility] 09:39:50 Screenin g for malignan t neoplasm of rectum Completed 201012/26/2011 Screening for malignant neoplasms of the rectum;Re corded Elsewhere : No Locati on: [facility] So urce: EHR Chron ic: N Practic e ID: [id number] Bill able Time: 10:00:00 AM Rachel sommers [facility] 2 09:39:50 Speciali d medical examinat ion Completed 201207/17/2021 Gynecolog ical Examinati on;Record ed Elsewhere : No Locati on: [facility] So urce: EHR Chron ic: N Practic e ID: [id number] Bill able Time: 10:00:00 [facility] 09:39:50 Screenin g for malignan t neoplasm of cervix Completed 201012/26/2011 Screening for malignant neoplasms of the cervix;Re corded Elsewhere : No Locati on: [facility] So urce: EHR Chron ic: N Practic e ID: [id number] Bill able Time: 10:00:00 AM Rachel sommers [facility] 2 09:39:50 Adult health examinat ion Completed 201307/17/2021 ROUTINE MEDICAL EXAM;Roque rded Elsewhere : No Locati on: [facility] So urce: EHR Chron ic: N Practic e ID: [id number] Bill able Time: 09:00:00 AM Rachel sommers [facility] 2 09:39:50 Speciali zed medical examinat ion Completed 201012/26/2011 Gynecolog ical Examinati on;Record ed Elsewhere : No Locati on: [facility] So urce: EHR Chron ic: N Practic e ID: [id number] Bill able Time: 10:00:00 AM Rachel Clark [facility] 2 09:39:50 Menstrua tion finding Completed 201012/26/2011 Excessive or frequent menstruat ion;Recor ded Elsewhere : No Locati on: [facility] So urce: EHR Chron ic: N Practic e ID: [id number] Bill able Time: 10:00:00 AM [facility] 2 09:39:50 Malaise and fatigue [id number] Completed 201007/17/2021 Fatigue / Malaise;R ecorded Elsewhere : No Locati on: [facility] So urce: EHR Chron ic: N Practic e ID: [id number] Bill able Time: 10:00:00 AM [facility] 2 09:39:50 Depressi ve disorder [id number] Completed 201407/17/2021 Depressio n;Recorde d Elsewhere : No Locati on: [facility] So urce: EHR Chron ic: N Practic e ID: [id number] Bill able Time: 09:30:00 AM [facility] 2 09:39:50 Dysfunct ional uterine bleeding Completed 201007/17/2021 Other disorders of menstruat ion and other abnormal bleeding from female genital tract;Rec orded Elsewhere : No Locati on: [facility] So urce: EHR Chron ic: N Practic e ID: [id number] Bill able Time: 11:00:00 AM [facility] 2 09:39:50 Menstrua tion finding Completed 201007/17/2021 Menorrhag ia Excessive Menstruat ion;Pract ice ID: [id number] Rachel [facility] 2 09:39:50 Screenin g for malignan t neoplasm of cervix Completed 201107/17/2021 Pap Smear;Pra ctice ID: 0001 Rachel Clark [facility] 2 09:39:50 Problem Notes None recorded. Procedures Surgical History Date Name Laterality Status Provider Name and Address Organization Details Recorded Time 07/23/19 24 Date of Last Pap Smear completed Nisha Villalba [facility] 09/08/2024 09:28:20 06/20/19 23 Date of Last Mammogram completed [facility] 07/19/2022 10:58:47 06/07/19 21 completed [facility] 07/13/2020 12:39:39 07/09/19 18 Colonoscopy completed Claudia Baker [facility] [address], [place], [address], [facility] 07/19/2022 11:07:46 05/14/19 18 [facility] 07/17/2021 10:45:24 03/01/20 17 completed [facility] 07/17/2021 11:10:57 cystoscopy completed [facility] 07/13/2020 12:26:35 Laparoscopy completed [facility] 07/13/2020 12:27:15 lumpectomy of left breast completed [facility] 07/13/2020 12:27:26 Imaging Results None recorded. Procedure Notes None recorded. Medical Equipment None Reported. Allergies Allergen ID Allergen Name Allergen Category Reaction Reaction Severity Criticality Documentation Date Start Date Code Code System Note Provider Name and Address Organization Details Recorded Time 84498 meperidin e medicatio n Not available Not available Not available 07/13/2020 6754 RxNorm Gisel Bello [facility] 1 12:27:56 Medications Name Sig Start Date Stop Date Status Note LastModified by Organization Details LastModified Time trazodone 50 mg tablet TAKE 1 TABLET BY MOUTH NIGHTLY active Not Available Not Available No t Available Prozac 40 mg capsule TAKE 1 CAPSULE DAILY IN THE MORNING 06/02 completed Prescrib ed Elsewher e: No Locat ion: [facility] odify By: sal chambers DateTime : 03/26/20 14 01:57:12 PM Not Available Not Available Not Available hydrocodo ne 5 mg-acetam inophen 325 mg tablet TAKE 1 TABLET BY MOUTH EVERY 6 HOURS NEEDED FOR PAIN (RATED 4-6 ON PAIN SCALE) active Not Available Not Available No t Available aspirin 81 mg tablet,de layed release TAKE 1 TABLET BY MOUTH EVERY 12 HOURS active Not Available Not Available No t Available methotrex ate sodium 2.5 mg tablet TAKE 4 TABLETS BY MOUTH EVERY 7 DAYS. active Not Available Not Available No t Available tamoxifen 10 mg tablet take 1 tablet by oral route 2 times every day in the morning and evening 12/31 completed Prescrib ed Elsewher e: Yes Loca tion: [facility] odify By: juan antonio friend DateTime : [...] Elsewher e: Yes Loca tion: Fidel bryant [facility] odify By: sal tz Kiaou nter DateTime : 12/17/19 11 03:15:51 PM [...] Prescrib ed Elsewher e: Yes Loca tion: [facility] odify By: juan antonio friend DateTime : 12/17/19 11 03:15:51 PM Not Available Not Available Not Available Lysteda 650 mg tablet take 2 tablet by oral route 3 times every day during menses 07/13 completed Prescrib ed Elsewher e: No [facility] odify By: maura friend DateTime : 10/25/19 08:12:45 AM Not Available Not Available Not Available Xatmep 2.5 mg/mL oral solution 07/13 completed Prescrib ed Elsewher e: Yes Loca tion: [facility] odify By: diogenes Bryant ncounter DateTime : 01/23/20 02:15:00 PM Not Available Not Available Not Available Vitals Date Recorded Body height Body mass index (BMI) Body weight Systolic And Diastolic Provider Name and Address Organization Details Last Updated DateTime 07/13/2020 167.64 cm 23.9 kg/m2 25584.67 g 103/65 mm[Hg] Gisel Bello [facility] 07/13/2020 12:39:01 Date Recorded Body height Body mass index (BMI) Body weight Systolic And Diastolic Provider Name and Address Organization Details Last Updated DateTime 07/17/2021 170.18 cm 23 kg/m2 44511.08 g 110/68 mm[Hg] Rachel Clark [facility] 07/17/2021 11:10:47 Date Recorded Body height Body mass index (BMI) Body weight Systolic And Diastolic Provider Name and Address Organization Details Last Updated DateTime 07/19/2022 170.18 cm 23.5 kg/m2 81575.86 g 107/70 mm[Hg] Gisel Bello [facility] 07/19/2022 10:57:52 Date Recorded Body weight Systolic And Diastolic Provider Name and Address Organization Details Last Updated DateTime 07/23/2023 89343.98 g 103/71 mm[Hg] Rachel Krishna [facility] 07/23/2023 10:57:27 Date Recorded Body height Body mass index (BMI) Body weight Systolic And Diastolic Provider Name and Address Organization Details Last Updated DateTime 09/08/2024 170.18 cm 23.6 kg/m2 39355.01 g 109/75 mm[Hg] Nisha Villalba [facility] 09/08/2024 09:34:37 Social History Question Answer Notes LastModified by Organizat ion Details LastModified Time Tobacco Smoking Status Never Smoker [facility] 07/19/2022 10:44:06 Do You Have An [...] Or The Highest Degree You Have Received? [id number] Information not available 07/13/2020 Are There Any [...] Have Difficulty Walking Or Climbing Stairs? No [email or web address] Information not available 07/19/2022 Sex: Unknown Functional Status Question Answer Note LastModified by Organizat ion Details LastModified Time Do you use any illicit or recreational drugs? No Information not available 07/13/2020 What is your level of alcohol consumption? Occasional Information not available 07/13/2020 Are you able to walk? YESWOREST Information not available 07/13/2020 Are you able to care for yourself? 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 No [email or web address] Information not available 07/19/2022 What is your exercise level? Moderate Information not available 07/13/2020 Mental Status Question Answer Note LastModified by Organization D etails LastModified Time Do you feel stressed (tense, restless, nervous, or anxious, or unable to sleep at night)? [id number] Information not available 07/13/2020 Family History Relationship Description Onset Age of this Age Resolved Age Notes LastModified by Organization Details LastModified Time Paternal Grandmother Coronary atherosclero sis [email or web address] Not available 2022 10:44:05 Maternal Grandmother Hypertensive disorder Not available 2020 12:23:09 Maternal Grandmother Cerebrovascu lar accident Not available 10/2020 12:24:06 Father Carcinoma of prostate [email or web address] Not available 2022 10:44:05 Paternal Grandfather Carcinoma of prostate [email or web address] Not available 2022 10:44:05 Paternal Uncle Carcinoma of prostate [email or web address] Not available 2022 10:44:05 Maternal Grandfather Malignant tumor of kidney [email or web address] Not available 2022 10:44:05 Maternal Aunt Malignant tumor of colon [email or web address] Not available 2021 11:14:44 Mother Malignant neoplasm of skin [email or web address] Not available 2022 10:44:05 Medical History Condition [...] SNOMED-CT Code Diagnosis ICD10 Code Diagnosis Note [id number] Claudia Baker , [facility] [address],[place] [address] 07/13/2020 12:25:21 07/13/2020 14:07:19 Gynecologic examination 16448184 Z01.419 Take Calcium with Vitamin D 12-1500mg daily. Do monthly self breast exams. It is advised to get annual flu shot in the fall and she could obtain at [facility] or [facility] care clinic. If you haven't received the [...] UTD colonoscop y Adult heal th examination 016958551 Z00.00 Encouraged to est care with PCP for routine adult care. She agrees. Generalize d anxiety disorder [id number] F41.1 Doing well on 60mg daily of this medication . [id number] Claudia Baker , [facility] [address],[facility] [place] [address] 07/17/2021 10:51:58 07/17/2021 11:32:56 Gynecologic examination 49882851 Z01.419 Take Calcium with Vitamin D 12-1500mg daily. Do monthly self breast exams. It is advised to get annual flu shot in the fall and she could obtain at [facility] or [facility] care clinic. If you haven't received the [...] utd PCPMammo wnl 06/2021 Secondary amenorrhea 156 601742 N91.1 LMP ike ly transition menopause but wants to see where levels are at.Keep menstrual diary. Adult heal th examination 711518901 Z00.00 [id number] SEBASTIAN [facility] [address] [address] 07/19/2022 10:43:59 07/19/2022 14:23:24 Gynecologic examination 96390525 Z01.419 Z11.51 Take Calcium with Vitamin D 12-1500mg daily. Do monthly self breast exams. It is advised to get annual flu shot in the fall and she could obtain at [facility] or [facility] care clinic. If you haven't received the [...] Screen naRoutine Labs utd PCPMammo wnl 06/2022 sitewhitman Screening mammography 24 696278 Z12.31 Depressive disorder 3540 9007 F32.A Doing wellNeg suicidal ideations/ thoughts of self harmWishes to continueRF sent x 1yr [id number] SEBASTIAN [facility] [address] [address] 07/23/2023 10:39:54 07/23/2023 11:58:46 Gynecologic examination 31727901 Z01.419 Z11.51 Take Calcium with Vitamin D 12-1500mg daily. Do monthly self breast exams. It is advised to get annual flu shot in the fall and she could obtain at [facility] or [facility]. If you haven't received the Tdap vaccine [...] Labs utd PCPMammo ordered Screening mammography 24 535443 Z12.31 Has completed for 4-wnl per pt Depressive disorder 3548 9007 F32.A Doing wellNeg suicidal ideations/ thoughts of self harmWishes to continueRF sent x 1yr [id number] Jcarlos Molina MD [facility] [address] [address] 09/08/2024 09:24:35 09/08/2024 12:09:49 Well woman health examination 276377423 Z01.419 Annual gynecologi betsy exam performed. Patient [...] email. mammogram- UTD - 07/10/24 WNL at [facility] colon cancer screening - [facility] PCP DEXA scan- n/a Pap smear- pap w/ HPV collected laboratory evaluation - requested STI testing - declined Depressive disorder 7669 5207 F32.A Doing well on floxetine. Neg suicidal ideations/ thoughts of self harmWishes to continueRF sent x 1yr Health Concerns Section Related Observation LastModified by Organization Detai ls LastModified Time None Recorded Concern Status LastModified by Organization Details LastModified Time None Recorded Advance Directives Directive Y: Payers Insurance Date Sequence Insurance Name Policy Number Policy Robertson Covered Member ID Robertson Member ID Guarantor Name 09/06/2024 1 [facility] [id number] Shelia Tate [id number] Aminata Tate Notes Date Note Type Note Provider Name and Address Organization Details Recorded Time 07/13/2020 text/html Annual GYNReport ed bypatient.History: no gynecologic complaints Menstrual cycle:Normal menses; Still with menses every 1-2mos regular flow lasting 4-5d. Urinary symptoms:No hematuria; No incontinence Vulva:No genital lesion Vagina:Normal vaginal discharge Breast:No breast pain; No breast lump; No nipple discharge Current Contraception:Dillon gamous relationship; Condoms Sexual complaints:No sexual complaints; [...] remission now. Not on any treatment.) Claudia Baker, [facility]- [address], [place], [address], [facility] 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 ODETTE MERCEDES NP [address], [place], [address], [facility] 09/08/2024 11:46:58 OBGyn Episode Ob Episode Information Episode Created Date Number of Fetuses Patient Bloodtype Patient rh Status Prepregnancy Weight lbs Domestic Partner Domestic Partner Phone Father Name Dean Status 07/14/19 21 1 CLOSED Fetus Data [...] Post Complications Tubal Sterilization Discharge Date Comments Discharge Information Feeding Method Contraceptive Method Maternal HG B and HCT Levels Ob Episode Information Episode Created Date Number of Fetuses Patient Bloodtype Patient rh Status Prepregnancy Weight lbs Domestic Partner Domestic Partner Phone Father Name Dean Status 07/14/19 21 1 CLOSED Fetus Data [...] Domestic Partner Domestic Partner Phone Father Name Dean Status 07/14/19 21 1 CLOSED Fetus Data First Name Last Name Admitted to NICU Weight (g) Sex Living Outcome Pediatric Complications Fetus ID Race Codes Race Delivery Type F [id number] Vaginal Delivery Abhishek Calculation Initial Abhishek Date Initial Exam Date Initial Exam Provider Initial Ultrasound Date Last Menstrual Period Date Ultra Sound Weeks Gestation 0 Eighteen To Twenty Week Abhihsek Update Ultra Sound Date Fundal Height At [...] Domestic Partner Domestic Partner Phone Father Name Dean Status 07/14/19 21 1 CLOSED Fetus Data [...]
--- OUTSIDE RECORDS SUMMARY | 2024-10-08 10:29 | XMS_ITS | Clinical Summary ---
[facility] Address [address] [place] [address] Care Team Providers Care Operations Research Group Manager Name Role Phone Judit Ferrera MD Primary Care Provider + [phone] Allergies Active Allergy Reactions Criticality Noted Date [...] 06/01/2014 Overview (09/08/2024): Depression;Recorded Elsewhere: No Location: [facility] Source: EHR Chronic: N Practice ID: [id number] Billable Time: 09:30:00 AM Arthritis 08/22/2013 Overview (07/13/2016): Inflammatory arthritis Fibrositis 08/15/2012 Overview (07/13/2016): Fibromyalgia Sjogren's syndrome 08/15/2012 Overview (07/14/2016): Sjogrens syndrome 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 Malaise and fatigue 02/01/2011 Overview (09/08/2024): Fatigue / Malaise;Recorded Elsewhere: No Location: [facility] Source: EHR Chronic: N Practice ID: [id number] Billable Time: 10:00:00 AM Encounters Date Type Department Care Team Description 09/08/2024 3:00 PM CDT Office Visit [facility] Rheumatology at [place] [address] [place] [address] Deidra Braga MD Sjogren's syndrome with keratoconjunctivitis sicca (Primary Dx); Long-term use of high-risk medication 09/07/2024 Orders Only [facility] Rheumatology at [facility] [address] [place] [address] Deidra Braga MD 07/13/2024 Results Follow-Up [facility] Surgery [address] [place] [address] Floor [address] [place] [address] Sabina Reynaga NP Screening Mammogram Bilateral W Dash 07/10/2024 3:21 PM CDT - 07/10/2024 11:59 PM CDT Hospital Encounter [facility] - Breast [facility] [address] [place] [address] Floor [address] [place] [address] History of breast cancer Discharge Disposition: Discharge to home or self care 07/10/2024 3:15 PM CDT Office Visit [facility] Surgery [facility] Floor [address] [place] [address] Sabina Reynaga NP Ductal carcinoma in situ [...] Vaccination (12+ YRS) 01/27/2021 Sars-cov-2 Covid-19 Zaira, Kaushik dow, Original/brandan Ba.1 12/26/2023 ZOSTER LIVE 05/12/2018,03/04/2018 ZOSTER Recombinant 05/12/2018,03/04/2018 Surgical History Surgery Date Site/Laterality Comments OTHER SURGICAL HISTORY 04/08/2008 - 04/07/2009 breast CA: lumpectomy and radiation BREAST SURGERY 04/08/2008 - 05/08/2008 Medical History Medical History Date Comments Hx Other Medical breast CA Hx Other Medical srjogrens; Comm ents: [facility] 01/18/2015 - Depression Depression Sjogren's syndrome Autoimmune [...] on file Legal 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 Gender Identity Not on file Sexual [...] Modern a risk series) 01/23/2024 12/26/2023, 01/27/2021 Influenza Vaccine (#1) 2024 , 01/06/2021, 12/30/2019, Additional history exists Breast Cancer Screening-Mammogram 07/10/2025 07/10/2024, 06/25/2023, 06/19/2022, Additional history exists Zoster Vaccine Completed 05/12/2018, 07/2018, 03/04/2018, Additional history exists Procedures Procedure Name Priority [...] - 09/08/2024 4:07 AM CDT Performed at: [address] [place] [id number] Skin Diver: Raul Garcia PhD, Phone: [phone] us Deidra Braga MD LAB BLOOD ORDERABLES Final Result Performing Organization Address City/[facility]/ZIP Co de Phone Number [facility] - 01 * (ABNORMAL) CBC without differential (09/07/2024 9:00 AM CDT) Pathologist [facility] WBC 2.6(L) 3.4 - 10.8 x10E3/uL [facility] [...] - 09/08/2024 4:07 AM CDT Performed at: [facility] [id number] Skin Diver: Raul Garcia PhD, Phone: [phone] Specimen Comment: A courtesy copy of this report has been sent to [phone] Deidra Braga MD LAB BLOOD ORDERABLES Final Result Performing Organization Address City/[facility]/ZIP Co de Phone Number [facility] - * Comprehensive metabolic panel [...] - 09/08/2024 2:07 AM CDT Performed at: - [facility] [address] [id number] Skin Diver: Raul Garcia PhD, Phone: [phone] us Deidra Braga MD LAB BLOOD ORDERABLES [...] compared to prior imaging studies performed at [facility] on 06/13/2021, 06/19/2022 and 06/25/2023. There [...] compared to prior imaging studies performed at [facility] on 06/13/2021, 06/19/2022 and 06/25/2023. There are scattered areas of fibroglandular density. There is no suspicious abnormality in either breast. Impression: There is no mammographic evidence of malignancy. Annual screening mammography is recommended. OVERALL FINAL ASSESSMENT: BI-RADS CATEGORY 1: Negative. Sabina Reynaga NP IMG MAMMO PROCEDURES Edite d Result - Final from Last 3 Months Insurance Roundrate [place]rate [place] Roundrate [place] Care Teams Operations Research Group Manager Relationship Specialty Start Date End Date Judit Ferrera MD [address] [place] [address] PCP - General Family Medicine 12/26/21
--- OUTSIDE RECORDS SUMMARY | 2024-10-08 10:29 | XMS_ITS | Data Portability ---
Author Organization [facility] SHAHIDAJulio Cesar Address [address] [place] [address] Assessment No assessment recorded. Plan of Treatment Reminders Order Date Submit Date Provider Last Modified By Organization Details Last Modified Time Details Appointments None recorded. 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 [facility] 2019 020 [facility] (Lab), [address] [place], [address], 0 18:24:05 Referral None recorded. Procedures None recorded. Surgeries None recorded. Imaging None recorded. Medication Orders None recorded. Patient TargetsNo targets recorded. Patient Instructions Encounter Date Encounter Id Patient Instructions Last Modified By Organization Details Last Modified Time 08/27/2019 [id number] Reviewed the following recommendations: -Stay home and [...] CoV 2 RNA (COVI D-19) , QL, software sales executive-P CR, respi rator y speci men sars - cov - 2 PCR NEGATI VE mL Not Available [facility] (Lab) [address] [place], [address], 08/28/2019 18:24:05 08/27/19 20 08/27/2019 SARS CoV 2 RNA (COVI D-19) , QL, software sales executive-P CR, respi rator y speci men covidcom1 [...] of this test metho d. Not Available [facility] (Lab) [address] [facility], [place], [address], 08/28/2019 18:24:05 08/27/19 20 08/27/2019 SARS CoV 2 RNA (COVI D-19) , QL, software sales executive-P CR, respi rator y speci men covidcom2 Posit matthew resul ts are indic ative of the prese nce of SARS- CoV-2 RNA and do not rule out bacte rial infec tion or co-in fecti on with other virus es. Not Available [facility] (Lab) [address] [facility], [place], [address], 08/28/2019 18:24:05 08/27/19 20 08/27/2019 SARS CoV 2 RNA (COVI D-19) , QL, software sales executive-P CR, respi rator y speci men covidcom3 Test resul ts shoul d be used along with other clini greg obser vatio ns, patie nt histo ry, epide miolo gical infor matio n and labor atory data in ansely woody the diagn osis. Not Available [facility] (Lab) [address] [place], [address], 08/28/2019 18:24:05 08/27/19 20 08/27/2019 SARS CoV 2 RNA (COVI D-19) , QL, software sales executive-P CR, respi rator y speci men covidcom4 This test has recei linda FDA Emerg ency Use Autho rizat ion and has been verif ied by [facility] . This test is only autho rized [...] or revok ed soone r. Not Available [facility] (Lab) [address] [place], [address], 08/28/2019 18:24:05 08/27/19 20 08/27/2019 SARS CoV 2 RNA (COVI D-19) , QL, software sales executive-P CR, respi rator y speci men covidcom5 [facility] [employer] atory is certi fied under CLIA- 88 as quali fied to perfo rm high compl exity testi ng. This testi ng was perfo rmed in the [facility] [employer] [place] [address] (CLIA Licen se #[id number], CAP #[id number], AU-ID #[id number]). Not Available [facility] (Lab) [address] [place], [address], 08/28/2019 18:24:05 08/27/19 20 08/27/2019 SARS CoV 2 RNA (COVI D-19) , QL, software sales executive-P CR, respi rator y speci men covidcom6 Facts heet for healt hcare provi ders: https ://ww w.fda .gov/ media /1362 56/do wnloa d Facts heet for patie nts: https ://ww w.fda .gov/ media /1362 57/do wnloa d Not Available [facility] (Lab) [address], [place], [address], 08/28/2019 18:24:05 Result Notes None recorded. Medical [...] SNOMED-CT Code Diagnosis ICD10 Code Diagnosis Note [id number] AGGIE Figueroa [address] [place] [address] 08/27/2019 15:08:48 09/01/2019 08:01:23 Suspected COVID-19 115784064 Z03.818 D/w pt the current pandemic of COVID-19 and call for social isolation in order to blunt the curve and minimize risk and spread. Encouraged patient and family to take restrictio ns seriously. They have verbalized understand ing of such. Viral syndrome [id number] B34.9 Health Concerns Section Related Observation LastModified by Organization Detai ls LastModified Time None Recorded Concern Status LastModified by Organization Details LastModified Time None Recorded Advance Directives Directive None Recorded Payers Insurance Date Sequence Insurance Name Policy Number Policy Robertson Covered Member ID Robertson Member ID Guarantor Name 08/27/2019 1 [id number] Shelia Tate [id number] Shelia Tate Notes Date Note Type [...] person. KENYETTA Bolivar NP Attn: Accounting,[address] [place], [address], [facility] 08/27/2019 15:16:18 OBGyn Episode No OBEpisode recorded.
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
[2024-10-08 11:15] VITALS: BP 112/79; PULSE 86; RESP 18; O2SAT 99
--- OUTSIDE RECORDS SUMMARY | 2024-10-08 11:32 | XMS_ITS | Referral Summary ---
Author Organization [facility] D Address [address] [place] [address] Care Team Providers Care Category Development Analyst Name Role Phone Judit Ferrera MD Primary Care Provider Encounters Date Type Department Care Team Description 09/08/2024 3:00 PM CDT Office Visit [facility] Medical [facility] Rheumatology at [address] [phone] Deidra Braga MD Sjogren's syndrome with keratoconjunctivitis sicca (Primary Dx); Long-term use of high-risk medication 09/07/2024 Orders Only [facility] Medical [facility] Rheumatology at [address], [place] [address] Deidra Braga MD 07/13/2024 Results Follow-Up [facility] Surgery [address] [place] [address] [address] [place] [phone] Sabina Reynaga NP Screening Mammogram Bilateral W Dash 07/10/2024 3:21 PM CDT - 07/10/2024 11:59 PM CDT Hospital Encounter [facility] - Breast Imaging [address] [place] [address] Floor 8 [place] [address] History of breast cancer Discharge Disposition: Discharge to home or self care 07/10/2024 3:15 PM CDT Office Visit [facility] Surgery [address] [facility] [address] [place] [address] Sabina Reynaga NP Ductal carcinoma in situ [...] 06/01/2014 Overview (09/08/2024): Depression;Recorded Elsewhere: No Location: [facility] Source: EHR Chronic: N Practice ID: [id number] Billable Time: 09:30:00 AM Arthritis 08/22/2013 Overview (07/13/2016): Inflammatory arthritis Fibrositis 08/15/2012 Overview (07/13/2016): Fibromyalgia Sjogren's syndrome 08/15/2012 Overview (07/14/2016): Sjogrens syndrome 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 Malaise and fatigue 02/01/2011 Overview (09/08/2024): Fatigue / Malaise;Recorded Elsewhere: No Location: [facility] Source: EHR Chronic: N Practice ID: [...] on file 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 Gender Identity Not on file Sexual Orientation [...] Erythrocyte sedimentation rate (09/07/2024 9:00 AM CDT) [facility] Erythrocyte sedimentation rate 17 0 - 40 mm/hr [facility] - 01 09/07/2024 9:00 AM CDT 09/07/2024 Narrative [facility] - 09/08/2024 4:07 AM CDT Performed at: [address] [place] [id number] Entrance Guard: Raul Garcia PhD, Phone: [phone] Deidra Braga MD LAB BLOOD ORDERABLES Final Result [facility] - 01 * (ABNORMAL) CBC without differential (09/07/2024 9:00 AM CDT) [facility] WBC 2.6(L) 3.4 - 10.8 x10E3/uL [...] 09/08/2024 4:07 AM CDT Performed at: [address] [id number] Entrance Guard: Raul Garcia PhD, Phone: [phone] Specimen Comment: A courtesy copy of this report has been sent to [phone] Deidra Braga MD LAB BLOOD ORDERABLES Final Result [facility] - 01 * Comprehensive metabolic panel (09/07/2024 9:00 AM CDT) Pathologist [facility] Glucose 89 70 - 99 mg/dL [facility] [...] 09/08/2024 2:07 AM CDT Performed at: [id number] [place], [place] [id number] Entrance Guard: Raul Garcia PhD, Phone: [phone] Deidra Braga MD LAB BLOOD ORDERABLES Final [...] compared to prior imaging studies performed at [facility] on 06/13/2021, 06/19/2022 and 06/25/2023. [...] compared to prior imaging studies performed at [facility] on 06/13/2021, 06/19/2022 and 06/25/2023. There are scattered areas of fibroglandular density. There is no suspicious abnormality in either breast. Impression: There is no mammographic evidence of malignancy. Annual screening mammography is recommended. OVERALL FINAL ASSESSMENT: BI-RADS CATEGORY 1: Negative. Sabina Reynaga NP IMG MAMMO PROCEDURES Edite d Result - Final from Last 3 Months Insurance Into [employer] [facility] [place] Care Teams Category Development Analyst Relationship Specialty Start Date End Date Judit Ferrera MD [address] [place], [place] [id number] PCP - General Family Medicine 12/26/21
--- OUTSIDE RECORDS SUMMARY | 2024-10-08 11:32 | XMS_ITS | Clinical Summary ---
Author Organization [facility] D Address [address] [place] [address] Care Team Providers Care Clinical Haematologist Name Role Phone Judit Ferrera MD Primary Care Provider + [phone] Allergies Active Allergy Reactions Criticality Noted Date [...] 06/01/2014 Overview (09/08/2024): Depression;Recorded Elsewhere: No Location: [facility] Source: EHR Chronic: N Practice ID: [id number] Billable Time: 09:30:00 AM Arthritis 08/22/2013 Overview (07/13/2016): Inflammatory arthritis Fibrositis 08/15/2012 Overview (07/13/2016): Fibromyalgia Sjogren's syndrome 08/15/2012 Overview (07/14/2016): Sjogrens syndrome 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 Rheumatology at [place] [address] [facility] [address] [place] [address] Deidra Braga MD Sjogren's syndrome with keratoconjunctivitis sicca (Primary Dx); Long-term use of high-risk medication 09/07/[address] [facility] Rheumatology at [facility] [address] [facility] [address] [place] [address] Deidra Braga MD 07/13/2024 Results Follow-Up [facility] Surgery [address] [place] [address] Floor [address] [place] [address] Sabina Reynaga NP Screening Mammogram Bilateral W Dash 07/10/2024 3:21 PM CDT - 07/10/2024 11:59 PM CDT Hospital Encounter [facility] - Breast Imaging [address] [place] [address] Floor 8 [place] [address] History of breast cancer Discharge Disposition: Discharge to home or self care 07/10/2024 3:15 PM CDT Office Visit [facility] Surgery [facility] Floor [address] [place] [address] Sabina Reynaga NP Ductal carcinoma in situ [...] on file 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 Gender Identity Not on file Sexual Orientation [...] - 09/08/2024 4:07 AM CDT Performed at: [address] [place] [id number] Telegraph And Teletype Operator: Raul Garcia PhD, Phone: [phone] us Deidra Braga MD LAB BLOOD ORDERABLES Final Result Performing Organization Address City/[facility]/ZIP Co de Phone Number [facility] - [...] - 09/08/2024 4:07 AM CDT Performed at: [facility] [address] [id number] Telegraph [employer] Teletype Operator: Raul Garcia PhD, Phone: [phone] Specimen Comment: A courtesy copy of this report has been sent to [phone] Deidra Braga MD LAB BLOOD ORDERABLES Final Result Performing Organization Address City/[facility]/ZIP Co de Phone Number [facility] - [...] 2:07 AM CDT Performed at: - [facility] [address] [id number] Telegraph And Teletype Operator: Raul Garcia PhD, Phone: [phone] us Deidra Braga MD LAB BLOOD ORDERABLES [...] compared to prior imaging studies performed at [facility] on 06/13/2021, 06/19/2022 and 06/25/2023. There are scattered areas of fibroglandular density. There is no suspicious abnormality in either breast. Impression: There is no mammographic evidence of malignancy. Annual screening mammography is recommended. OVERALL FINAL ASSESSMENT: BI-RADS CATEGORY 1: Negative. Procedure Note Linh Otrega MD - 07/13/2024 ORIGINAL REPORT Mammogram Technique: Bilateral Digital Breast Tomosynthesis, Bilateral C-view 2D Screening mammogram. Views obtained: bilateral craniocaudal and bilateral mediolateral oblique. Computer Aided Detection was performed. Mammogram Findings: The present examination has been compared to prior imaging studies performed at [facility] on 06/13/2021, 06/19/2022 and 06/25/2023. There are scattered areas of fibroglandular density. There is no suspicious abnormality in either breast. Impression: There is no mammographic evidence of malignancy. Annual screening mammography is recommended. OVERALL FINAL ASSESSMENT: BI-RADS CATEGORY 1: Negative. Sabina Reynaga NP IMG MAMMO PROCEDURES Edite d Result - Final from Last 3 Months Insurance [employer] [place] [employer] [place] [employer] [place] Care Teams Clinical Haematologist Relationship Specialty Start Date End Date Judit Ferrera MD [address] [place] [address] PCP - General Family Medicine 12/26/21
--- OUTSIDE RECORDS SUMMARY | 2024-10-08 11:32 | XMS_ITS | Clinical Summary ---
Author Organization [employer] [facility] Address [address] 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
[2024-10-08 12:30] VITALS: BP 122/86; PULSE 71; RESP 16; O2SAT 98
[2024-10-08 14:00] VITALS: BP 115/88; PULSE 69; RESP 16; TEMP 36.4; O2SAT 99
== END 2024-10-08 14:00 | disposition home or self-care (01) ==
PROVIDERS: Emergency Provider Physician Assistant; PCP Nurse Practitioner
DX: M79.662 Pain in left lower leg (principal); R20.2 Paresthesia of skin
CPT/HCPCS: 73502; 93971; 99284

== ENCOUNTER 2025-01-13 15:06 | Outpatient (CLI) | payer BC, SELFPAY ==
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
== END 2025-01-13 15:07 | disposition home or self-care (01) ==
LOC: MICIMG 15:07
PROVIDERS: PCP Nurse Practitioner Family; Visit Provider Nurse Practitioner Family
DX: M81.0 Age-related osteoporosis without current pathological fracture (principal); M85.88 Other specified disorders of bone density and structure, other site; Z78.0 Asymptomatic menopausal state; S72.90XA Unspecified fracture of unspecified femur, initial encounter for closed fracture; X58.XXXA Exposure to other specified factors, initial encounter
CPT/HCPCS: 77080

== ENCOUNTER 2025-03-13 14:35 | Emergency (ER) | payer BC, SELFPAY ==
--- NOTE | ~2025-03-13 | XR_ITS ---
EXAMINATION: XR chest 2V, 03/13/2025 15:12 RESOURCING CONSULTANT HISTORY: cough for 2 months COMPARISON: No comparisons available. Technique: 2 views obtained. Findings: The lungs are clear, no effusion. No pneumothorax. Heart is normal size. Mediastinal and hilar contours are within normal limits. Bony thorax no acute abnormality. Impression: No acute cardiopulmonary abnormality. Reviewed, dictated and finalized at location P. URCING CONSULTANT Impression: No acute cardiopulmonary abnormality.
[2025-03-13 14:48] VITALS: BP 110/87; PULSE 84; RESP 18; TEMP 36.5; O2SAT 100
--- NOTE | 2025-03-13 15:02 | ED.URI ---
HPI - URI/Sore Throat General Chief Complaint: Upper Respiratory Infection Stated Complaint: Cough Time Seen by Provider: 03/13/25 14:40 Source: patient Mode of arrival: ambulatory Limitations: no limitations History of Present Illness HPI Narrative: patient is a 59-year-old female who presents with cough. Patient has been on multiple antibiotics and steroids for similar symptoms over the last 2 months. Patient was on clindamycin 01/18, doxycycline 02/25, Augmentin 03/09 that she is currently taking. Patient is also on prednisone 02/24 for 5 days. Denies any fever, chills, nausea, vomiting, diarrhea. Related Data Home Medications ?Medication ?Instructions ?Recorded ?Confirmed ?Last Taken ?Type cevimeline 30 mg capsule 1 cap PO TID 08/22/20 02/24/25 Unknown History fexofenadine 180 mg tablet 180 mg PO DAILY 08/22/20 02/24/25 Unknown History (Sveta Allergy) fluoxetine 40 mg capsule (Prozac) 60 mg PO DAILY 08/22/20 02/24/25 Unknown History folic acid 1 mg tablet 1 mg PO DAILY 08/22/20 02/24/25 Unknown History hydroxychloroquine 200 mg tablet 200 mg PO HS 08/22/20 02/24/25 Unknown History loteprednol etabonate 0.2 % eye 1 drp EACH EYE QID 08/22/20 02/24/25 Unknown History drops,suspension (Alrex) methotrexate sodium 2.5 mg tablet 10 mg PO WEEKLY 08/22/20 02/24/25 Unknown History trazodone 50 mg tablet 50 mg PO QHS PRN Insomnia 08/22/20 02/24/25 Unknown History Allergies Allergy/AdvReac Type Severity Reaction Status Date / Time latex Allergy Intermediate ITCHING Verified 03/13/25 14:41 sedatives AdvReac Intermediate Loss of Uncoded 02/24/25 07:41 Consciousness Review of Systems Review of Systems: All systems reviewed & are unremarkable except as noted in HPI and below Constitutional: Constitutional: Denies chills, Denies fatigue, Denies fever(s), Denies headache(s), Denies malaise and Denies weakness Eyes: Eyes: Denies blurry vision, Denies itchy eyes and Denies loss of vision ENT: Denies otalgia, Denies headache(s), Denies nasal congestion, Denies sinus pain and Denies sore throat Cardiovascular: Cardiovascular: Denies chest pain, Denies irregular heart rhythm and Denies dyspnea Respiratory: Respiratory: Reports cough and Denies dyspnea Gastrointestinal: Gastrointestinal: Denies abdominal pain, Denies diarrhea, Denies nausea and Denies vomiting Musculoskeletal: Musculoskeletal: Denies back pain, Denies myalgias and Denies arthralgias Integumentary/Breasts: Skin/Breast: Denies pruritus and Denies rash Neurologic: Denies headache(s), Denies loss of vision and Denies weakness Psychiatric: Psychiatric: Reports no additional psychiatric complaints Endocrine: Endocrine: Denies fatigue Allergic/Immunologic: Allergic/Immunologic: Denies itchy eyes PMFSH Past Medical History Medical History Encounter to establish care Closed fracture of neck of left femur Prolonged QT interval IBS (irritable bowel syndrome) Migraines Chronic insomnia Anxiety Depression Seasonal allergic rhinitis Sjogrens syndrome Family History Family History Grandparent Family history of malignant neoplasm of kidney Malignant neoplasm of prostate Family history of malignant neoplasm of urinary bladder Family history of coronary artery disease Hypertension Father Malignant neoplasm of prostate Family history of elevated blood lipids Heart disease Mother Heart disease Social History Social History Smoking status: Never smoker Second hand tobacco smoke exposure: No Alcohol intake: current Drinks per week: 1 Alcohol use details: 1-2/mo Substance use: never Substance use type: does not use Lack of Transportation: No Lack of Food: Never True Current Housing: I Have Housing Concerned About Future Housing: No Difficulty Paying Gas/Electric Bills: No Difficulty Paying for Meds: No Currently Unemployed: YES Education: Bachelor's Degree Difficulty w/ Childcare or Family Care: No Living arrangements: with family Occupation/Education: unemployed Gender identity (if verbalized by the patient): Female Sexual Orientation (if Verbalized by the Patient): Straight or Heterosexual Spiritual care concerns: No Comments At time of signature, agree with nursing past medical, surgical, social and family history. There is no relevant family history pertinent to the presenting complaint. Exam Const: General: cooperative, healthy appearing, comfortable, no acute distress and well nourished Nutritional Appearance: well nourished Orientation/consciousness: patient oriented x3 Limitations: no limitations HENMT: Head: normal to inspection, normocephalic and atraumatic Ears: hearing grossly normal bilaterally, external ears normal, TM's normal bilaterally, EAC's normal and no periauricular adenopathy Face/Nose/Sinus: Normal external nose present, Abnormal mucous membranes and turbinates present erythematous bilateral and diffuse, normal facial exam, sinuses nontender and face symmetric Face and sinus: normal facial exam, sinuses nontender and face symmetric Mouth: Yes Normal oral and palatal mucosa present, Yes lip normal, Yes tongue normal, Yes Normal salivary glands and ducts present, Yes oropharynx normal and Yes moist mucous membranes Teeth and gingiva: dentition normal Throat: posterior oropharynx normal, tonsils normal and uvula midline Eyes: General: appearance normal, both eyes and all related structures Alignment and Position: alignment normal and position normal Periorbital: periorbital findings normal Eyelids: eyelids normal Pupils: Equal, round and reactive pupils present Neck: Neck: normal visual inspection, full ROM, no lymphadenopathy and supple Chest: Chest palpation & inspection: normal inspection of the chest and normal palpation of entire chest wall Resp: Effort & Inspection: normal respiratory effort and able to speak in complete sentences Auscultation: no crackles, no rales, no rhonchi and wheezes scattered wheezes Cardio: Rate: regular rate Rhythm: regular rhythm Heart sounds: S1 normal heart sound present and S2 normal heart sound present GI: Inspection: normal to inspection Skin: General skin exam: normal color and no rashes or lesions noted Neuro: General: patient oriented x3 and moves all extremities Cranial nerves: Yes Equal, round and reactive pupils present Speech: normal speech Gait exam (Neuro): Normal gait present Extrem: General: normal to inspection, full ROM and no edema Psych: Appearance: grossly normal and well kempt Mental Status: mental status grossly normal Speech and movement: Normal speech and movement present Affect: normal affect Attitude: cooperative Thought process: Normal thought process present Course Course Emergency Course: Patient is aware of diagnosis, understands and agrees to treatment plan. Anticipatory guidance given. Patient agrees to follow-up as directed and is aware of reasons to seek care at the emergency department. Portions of this record may have been created with voice recognition software Level of Care: Express Care Visit Vital Signs Vital signs: Vital Signs Temperature 36.5 C 03/13/25 14:48 Pulse Rate 84 03/13/25 14:48 Respiratory Rate 18 03/13/25 14:48 Blood Pressure 110/87 03/13/25 14:48 Pulse Oximetry 100 03/13/25 14:48 Temperature 36.5 C 03/13/25 14:48 Pulse Rate 84 03/13/25 14:48 Respiratory Rate 18 03/13/25 14:48 Blood Pressure 110/87 03/13/25 14:48 Pulse Oximetry 100 03/13/25 14:48 MDM MDM Narrative Medical decision making narrative: Patient had outpatient x-ray order that she did not have completed. Patient would like x-ray at this time. Will give Tessalon Perles and albuterol inhaler. patient is currently on Augmentin. Pt well hydrated appearing, in no respiratory distress, hemodynamically stable. Recommend supportive care. The patient is stable at time of discharge the clinical impression was discussed and the patient was given the opportunity to ask questions, which were addressed as completely as possible given the information available at present. Anticipatory guidance and return to care precautions were discussed and the importance of primary care follow-up was stressed and encouraged. The patient voiced understanding of the plan, indications to return, and the need for follow-up. Exam findings show no acute concerns or changes Patient is appropriate for outpatient treatment and follow-up. Differential Diagnosis Differential Diagnosis: Differential diagnosis considered: Barreto virus, strep pharyngitis, allergic rhinitis, upper respiratory tract infection, sinusitis, rhinosinusitis, nasopharyngitis. viral pharyngitis, otitis media, otitis externa, otitis effusion, foreign body, cerumen impaction, viral syndrome, and influenza. Medical Records I have reviewed the following patient records and this information was taken into consideration when formulating the assessment and plan.: previous clinic visits Imaging Data Radiologist's impression: EXAMINATION: XR chest 2V, 03/13/2025 15:12 PLAN COORDINATOR HISTORY: cough for 2 months COMPARISON: No comparisons available. Technique: 2 views obtained. Findings: The lungs are clear, no effusion. No pneumothorax. Heart is normal size. Mediastinal and hilar contours are within normal limits. Bony thorax no acute abnormality. Impression: No acute cardiopulmonary abnormality. Reviewed, dictated and finalized at location P. COORDINATOR Discharge Plan Discharge Clinical Impression: Bronchitis Patient Disposition: Home Condition: Stable Instructions: Acute Bronchitis (ED) Additional Instructions: Use Tessalon Perles as needed for cough. Use inhaler with spacer as needed. Other symptomatic treatments include: -Alternate Tylenol and Motrin per package directions for fever or pain: Tylenol 650-1000mg by mouth every 4-6 hours. Do not exceed 4000mg in 24 hours. Advil (Ibuprofen) 600 mg by mouth every 6 hours. Do not exceed 2400mg in 24 hours. 8 AM: Tylenol 11 AM: Ibuprofen 2 PM: Tylenol 5 PM: Ibuprofen 8 PM: Tylenol 11 PM: Ibuprofen 2 AM: Tylenol 5 AM: Ibuprofen -Antihistamine medication such as Benadryl at night and Zyrtec/Claritin/Sveta during the day can help improve symptoms. -Use Flonase twice a day for 5 days then daily to help reduce the inflammation and dry up your sinuses. -You can also use Sudafed or Mucinex. Be sure to drink plenty of water with these medications at least 8 ounces with every dose and it is important to drink 8 to 10 glasses of water per day. Water is a natural decongestant -Eat and drink things that are easy to swallow, like tea or soup, or popsicles. -Oral rinses such as: Salt water gargles and/or may use topical anesthetic (eg. Chloraseptic spray) or lozenges to relieve dryness or throat pain). -Frequent hand washing or hand breakdown worker is one of the best ways to prevent spread of infection. -Using a vaporizer or humidifier at night will also help thin secretions and help with coughing up phlegm. Call your Primary Care Doctor and make a follow-up appointment in 3 days. If your cough worsens, you develop a fever greater than 103, you develop shaking chills, a fast heartbeat, trouble breathing and/or feel you are are breathing much faster than usual, call your Primary Care Doctor or go to the ER. Patient Language: Mongolian Prescriptions: New (DME) Aerochamber MV Spacer See Rx Instructions .Route Qty: 1 0RF Rx Instructions: As directed benzonatate 100 mg capsule 100 mg PO BID PRN (Reason: cough) Qty: 14 0RF albuterol sulfate 90 mcg/actuation HFA aerosol inhaler 2 puff inhalation QID PRN (Reason: shortness of breath or wheezing) Qty: 6.7 0RF No Action fluoxetine [Prozac] 40 mg capsule 60 mg PO DAILY cevimeline 30 mg capsule 1 cap PO TID hydroxychloroquine 200 mg tablet 200 mg PO HS trazodone 50 mg tablet 50 mg PO QHS PRN (Reason: Insomnia) methotrexate sodium 2.5 mg tablet 10 mg PO WEEKLY folic acid 1 mg tablet 1 mg PO DAILY Alrex 0.2 % drops,suspension 1 drp EACH EYE QID fexofenadine [Sveta Allergy] 180 mg tablet 180 mg PO DAILY multivitamin [Daily Multi-Vitamin] Tablet 1 tablet PO DAILY Qty: 90 0RF calcium carb-vitamin D3-vit K2 600 mg-1,000 unit-90 mcg tablet 1 tablet PO DAILY Qty: 90 0RF ascorbic acid (vitamin C) 500 mg tablet,delayed release (DR/EC) 1,000 mg PO DAILY Qty: 180 0RF codeine-guaifenesin 7.5-225 mg/5 mL liquid 7.5 ml PO Q4-6H PRN (Reason: cough) Qty: 473 0RF Follow-up/Referrals: Nayla Bazan APRN [Primary Care Provider, Internal Medicine] - 3 Days Time of Disposition: 15:41
== END 2025-03-13 15:44 | disposition home or self-care (01) ==
PROVIDERS: Emergency Provider Nurse Practitioner Family; PCP Nurse Practitioner Family
DX: J40 Bronchitis, not specified as acute or chronic (principal); F41.9 Anxiety disorder, unspecified; F32.A Depression, unspecified; M35.00 Sjogren syndrome, unspecified
CPT/HCPCS: 71046; 99213; G0463